=== PATIENT | male | born 1935 | race Caucasian/White ===

== ENCOUNTER 2018-01-11 02:00 | Outpatient (RCR) | payer MEDICARE, OTHER, SELFPAY ==
[2017-12-21] MEDS: Normal Saline Flush 10 ML SYR IVP (11:15)
[2017-12-21 11:52] LABS: Abs Immature Grans 0.03 k/cumm (0.0-0.09); Absolute Basophil Count 0.08 k/cumm (0.0-0.2); Absolute Eosinophil Count 0.13 k/cumm (0.0-0.7); Absolute Monocyte Count 0.67 k/cumm (0.11-0.7); Absolute Neutrophil Count 4.04 k/cumm (1.2-6.7); Basophils % 1.3; HCT 28.2 % (40.0-50.0); HGB 9.7 g/dL (13.5-17.5); Immature Grans % 0.5; Mean Corp. HGB Concentration 34.4 g/dL (32.0-36.0); Mean Corpuscular Hemoglobin 32.6 pg (27.0-33.0); Mean Corpuscular Volume 94.6 fL (80-95); Mean Platelet Volume 10.3 fL (8.0-11.0); Monocytes % 10.6; Neutrophils % 63.6; Platelet Count 167 x1000/uL (130-400); RBC 2.98 m/cumm (4.50-6.00); RBC Distribution Width 13.5 % (11.8-14.1); White Blood Cell Count 6.35 k/cumm (4.4-10.8)
[2017-12-21 12:05] LABS: ALT 50 U/L (12-78); AST 32 U/L (15-37); Albumin 3.2 g/dL (3.4-5.0); Alkaline Phosphatase 151 U/L (46-116); Anion Gap 7.4 mmol/L (3-11); BUN 21 mg/dL (7-18); Bilirubin, Total 0.4 mg/dL (0.2-1.0); CO2 21.6 mmol/L (21.0-32.0); CREATININE 1.02 mg/dL (0.70-1.30); Calcium 8.1 mg/dL (8.5-10.1); Chloride 109 mmol/L (98-107); Glucose 244 mg/dL (70-100); Potassium 5.1 mmol/L (3.5-5.1); Sodium 138 mmol/L (136-145); Total Protein 5.9 g/dL (6.4-8.2)
[2017-12-22 09:02] LABS: CEA 14.9 ng/ml
[2018-01-11] MEDS: Normal Saline Flush 10 ML SYR IVP (09:50)
[2018-01-11 10:16] LABS: Abs Immature Grans 0.02 k/cumm (0.0-0.09); HCT 26.4 % (40.0-50.0); Mean Corp. HGB Concentration 34.1 g/dL (32.0-36.0); Mean Corpuscular Hemoglobin 32.1 pg (27.0-33.0); Mean Corpuscular Volume 94.3 fL (80-95); Mean Platelet Volume 10.1 fL (8.0-11.0); Platelet Count 181 x1000/uL (130-400); RBC Distribution Width 13.8 % (11.8-14.1); White Blood Cell Count 3.13 k/cumm (4.4-10.8)
[2018-01-11 10:30] LABS: ALT 26 U/L (12-78); AST 18 U/L (15-37); Albumin 3.1 g/dL (3.4-5.0); Alkaline Phosphatase 121 U/L (46-116); Anion Gap 7.1 mmol/L (3-11); BUN 18 mg/dL (7-18); Bilirubin, Total 0.5 mg/dL (0.2-1.0); CO2 22.9 mmol/L (21.0-32.0); CREATININE 0.98 mg/dL (0.70-1.30); Chloride 112 mmol/L (98-107); Glucose 146 mg/dL (70-100); Potassium 4.4 mmol/L (3.5-5.1); Sodium 142 mmol/L (136-145); Total Protein 5.7 g/dL (6.4-8.2)
[2018-01-11 10:57] LABS: Absolute Eosinophil Count 0.34 k/cumm (0.0-0.7); Absolute Lymphocyte Count 0.97 k/cumm (1.2-3.4); Absolute Monocyte Count 0.34 k/cumm (0.11-0.7); Absolute Neutrophil Count 1.47 k/cumm (1.2-6.7); Atypical Lymphocytes % 0
[2018-01-11 10:58] LABS: Basophilic Stippling Present; Diff Comment Manual Differential; Polychromasia Present
[2018-01-12 08:57] LABS: CEA 14.1 ng/ml
== END 2018-01-28 ==
LOC: INF 02:00
PROVIDERS: PCP Neuromusculoskeletal Medicine & OMM; Visit Provider Internal Medicine Medical Oncology
DX: C18.6 Malignant neoplasm of descending colon (principal); Z45.2 Encounter for adjustment and management of vascular access device
CPT/HCPCS: 36591 ×2; 80053; 82378; 85025

== ENCOUNTER 2018-02-08 01:24 | Outpatient (RCR) | payer MEDICARE, OTHER, SELFPAY ==
[2018-02-01] MEDS: Normal Saline Flush 10 ML SYR IVP (11:45)
[2018-02-01 12:12] LABS: Abs Immature Grans 0.01 k/cumm (0.0-0.09); Absolute Basophil Count 0.02 k/cumm (0.0-0.2); Absolute Eosinophil Count 0.14 k/cumm (0.0-0.7); Absolute Lymphocyte Count 1.24 k/cumm (1.2-3.4); Absolute Monocyte Count 0.48 k/cumm (0.11-0.7); Absolute Neutrophil Count 0.75 k/cumm (1.2-6.7); Basophils % 0.8; Eosinophils % 5.3; HCT 26.1 % (40.0-50.0); HGB 8.8 g/dL (13.5-17.5); Immature Grans % 0.4; Mean Corp. HGB Concentration 33.7 g/dL (32.0-36.0); Mean Corpuscular Hemoglobin 31.9 pg (27.0-33.0); Mean Corpuscular Volume 94.6 fL (80-95); Monocytes % 18.2; Neutrophils % 28.3; RBC 2.76 m/cumm (4.50-6.00); RBC Distribution Width 13.8 % (11.8-14.1); White Blood Cell Count 2.64 k/cumm (4.4-10.8)
[2018-02-01 12:24] LABS: ALT 27 U/L (12-78); AST 19 U/L (15-37); Albumin 3.1 g/dL (3.4-5.0); Alkaline Phosphatase 133 U/L (46-116); Anion Gap 6.6 mmol/L (3-11); BUN 13 mg/dL (7-18); Bilirubin, Total 0.5 mg/dL (0.2-1.0); CO2 23.4 mmol/L (21.0-32.0); CREATININE 1.14 mg/dL (0.70-1.30); Calcium 8.4 mg/dL (8.5-10.1); Chloride 109 mmol/L (98-107); Glucose 266 mg/dL (70-100); Potassium 4.8 mmol/L (3.5-5.1); Sodium 139 mmol/L (136-145); Total Protein 5.7 g/dL (6.4-8.2)
[2018-02-01 12:27] LABS: Diff Comment Diff Reviewed; Platelet Count 169 x1000/uL (130-400)
[2018-02-01 12:28] LABS: Polychromasia Present
[2018-02-08] MEDS: Normal Saline Flush 10 ML SYR IVP (11:30)
[2018-02-08 11:40] LABS: Abs Immature Grans 0.04 k/cumm (0.0-0.09); Absolute Basophil Count 0.03 k/cumm (0.0-0.2); Absolute Eosinophil Count 0.15 k/cumm (0.0-0.7); Absolute Monocyte Count 0.49 k/cumm (0.11-0.7); Absolute Neutrophil Count 3.14 k/cumm (1.2-6.7); Basophils % 0.6; HCT 27.3 % (40.0-50.0); HGB 9.3 g/dL (13.5-17.5); Immature Grans % 0.8; Lymphocytes % 23.8; Mean Corp. HGB Concentration 34.1 g/dL (32.0-36.0); Mean Corpuscular Hemoglobin 32.4 pg (27.0-33.0); Mean Corpuscular Volume 95.1 fL (80-95); Monocytes % 9.7; Neutrophils % 62.1; Platelet Count 160 x1000/uL (130-400); RBC 2.87 m/cumm (4.50-6.00); RBC Distribution Width 13.6 % (11.8-14.1); White Blood Cell Count 5.05 k/cumm (4.4-10.8)
[2018-02-08 11:57] LABS: ALT 22 U/L (12-78); AST 13 U/L (15-37); Alkaline Phosphatase 132 U/L (46-116); Anion Gap 8.2 mmol/L (3-11); BUN 19 mg/dL (7-18); Bilirubin, Total 0.4 mg/dL (0.2-1.0); CO2 21.8 mmol/L (21.0-32.0); CREATININE 0.86 mg/dL (0.70-1.30); Calcium 8.3 mg/dL (8.5-10.1); Chloride 110 mmol/L (98-107); Glucose 382 mg/dL (70-100); Potassium 4.4 mmol/L (3.5-5.1); Sodium 140 mmol/L (136-145); Total Protein 5.8 g/dL (6.4-8.2)
== END 2018-02-27 23:59 | disposition home or self-care (01) ==
LOC: INF 01:24
PROVIDERS: PCP Neuromusculoskeletal Medicine & OMM; Visit Provider Internal Medicine Medical Oncology
DX: C18.6 Malignant neoplasm of descending colon (principal); Z45.2 Encounter for adjustment and management of vascular access device
CPT/HCPCS: 36591; 80053; 85025

== ENCOUNTER 2018-03-25 01:12 | Outpatient (RCR) | payer MEDICARE, OTHER, SELFPAY ==
[2018-03-04] MEDS: Normal Saline Flush 10 ML SYR IVP (09:55)
[2018-03-04 10:36] LABS: ALT 23 U/L (12-78); AST 13 U/L (15-37); Albumin 3.3 g/dL (3.4-5.0); Alkaline Phosphatase 148 U/L (46-116); Anion Gap 7.5 mmol/L (3-11); BUN 23 mg/dL (7-18); Bilirubin, Total 0.5 mg/dL (0.2-1.0); CO2 24.5 mmol/L (21.0-32.0); CREATININE 1.05 mg/dL (0.70-1.30); Calcium 8.6 mg/dL (8.5-10.1); Chloride 109 mmol/L (98-107); Glucose 222 mg/dL (70-100); Potassium 5.3 mmol/L (3.5-5.1); Sodium 141 mmol/L (136-145); Total Protein 6.1 g/dL (6.4-8.2)
[2018-03-04 10:37] LABS: Abs Immature Grans 0.04 k/cumm (0.0-0.09); Absolute Basophil Count 0.08 k/cumm (0.0-0.2); Absolute Lymphocyte Count 1.16 k/cumm (1.2-3.4); Absolute Monocyte Count 0.76 k/cumm (0.11-0.7); Absolute Neutrophil Count 6.32 k/cumm (1.2-6.7); Basophils % 0.9; Eosinophils % 2.3; HCT 28.8 % (40.0-50.0); HGB 9.3 g/dL (13.5-17.5); Immature Grans % 0.5; Lymphocytes % 13.6; Mean Corp. HGB Concentration 32.3 g/dL (32.0-36.0); Mean Corpuscular Hemoglobin 31.2 pg (27.0-33.0); Mean Corpuscular Volume 96.6 fL (80-95); Mean Platelet Volume 10.9 fL (8.0-11.0); Monocytes % 8.9; Neutrophils % 73.8; Platelet Count 232 x1000/uL (130-400); RBC 2.98 m/cumm (4.50-6.00); RBC Distribution Width 13.4 % (11.8-14.1); White Blood Cell Count 8.56 k/cumm (4.4-10.8)
[2018-03-07 11:07] LABS: CEA 24.4 ng/ml
[2018-03-25] MEDS: Normal Saline Flush 10 ML SYR IVP (10:25)
[2018-03-25 10:55] LABS: Abs Immature Grans 0.05 k/cumm (0.0-0.09); Absolute Basophil Count 0.05 k/cumm (0.0-0.2); Absolute Eosinophil Count 0.16 k/cumm (0.0-0.7); Absolute Lymphocyte Count 1.01 k/cumm (1.2-3.4); Absolute Monocyte Count 0.53 k/cumm (0.11-0.7); Absolute Neutrophil Count 8.02 k/cumm (1.2-6.7); Basophils % 0.5; Eosinophils % 1.6; HCT 28.7 % (40.0-50.0); HGB 9.7 g/dL (13.5-17.5); Immature Grans % 0.5; Lymphocytes % 10.3; Mean Corp. HGB Concentration 33.8 g/dL (32.0-36.0); Mean Corpuscular Hemoglobin 31.9 pg (27.0-33.0); Mean Corpuscular Volume 94.4 fL (80-95); Mean Platelet Volume 11.1 fL (8.0-11.0); Monocytes % 5.4; Neutrophils % 81.7; Platelet Count 164 x1000/uL (130-400); RBC 3.04 m/cumm (4.50-6.00); RBC Distribution Width 13.1 % (11.8-14.1); White Blood Cell Count 9.82 k/cumm (4.4-10.8)
[2018-03-25 11:07] LABS: ALT 27 U/L (12-78); AST 15 U/L (15-37); Albumin 3.1 g/dL (3.4-5.0); Alkaline Phosphatase 160 U/L (46-116); BUN 12 mg/dL (7-18); Bilirubin, Total 0.5 mg/dL (0.2-1.0); CREATININE 1.01 mg/dL (0.70-1.30); Calcium 8.4 mg/dL (8.5-10.1); Chloride 105 mmol/L (98-107); Glucose 358 mg/dL (70-100); Sodium 137 mmol/L (136-145); Total Protein 5.7 g/dL (6.4-8.2)
[2018-03-28 10:04] LABS: CEA 34.9 ng/ml
== END 2018-03-30 23:59 | disposition home or self-care (01) ==
LOC: INF 01:12
PROVIDERS: PCP Neuromusculoskeletal Medicine & OMM; Visit Provider Internal Medicine Medical Oncology
DX: C18.6 Malignant neoplasm of descending colon (principal); Z45.2 Encounter for adjustment and management of vascular access device
CPT/HCPCS: 36591; 80053; 82378; 85025

== ENCOUNTER 2018-04-29 00:51 | Outpatient (RCR) | payer MEDICARE, OTHER, SELFPAY ==
[2018-04-18] MEDS: Normal Saline Flush 10 ML SYR IVP (09:55)
[2018-04-18 10:38] LABS: Abs Immature Grans 0.03 k/cumm (0.0-0.09); Absolute Basophil Count 0.07 k/cumm (0.0-0.2); Absolute Eosinophil Count 0.22 k/cumm (0.0-0.7); Absolute Lymphocyte Count 0.87 k/cumm (1.2-3.4); Absolute Monocyte Count 0.53 k/cumm (0.11-0.7); Absolute Neutrophil Count 6.42 k/cumm (1.2-6.7); Basophils % 0.9; Eosinophils % 2.7; HCT 28.1 % (40.0-50.0); HGB 9.4 g/dL (13.5-17.5); Immature Grans % 0.4; Lymphocytes % 10.7; Mean Corp. HGB Concentration 33.5 g/dL (32.0-36.0); Mean Corpuscular Hemoglobin 31.5 pg (27.0-33.0); Mean Corpuscular Volume 94.3 fL (80-95); Mean Platelet Volume 11.5 fL (8.0-11.0); Monocytes % 6.5; Neutrophils % 78.8; Platelet Count 158 x1000/uL (130-400); RBC 2.98 m/cumm (4.50-6.00); RBC Distribution Width 13.1 % (11.8-14.1); White Blood Cell Count 8.14 k/cumm (4.4-10.8)
[2018-04-18 10:54] LABS: ALT 21 U/L (12-78); AST 14 U/L (15-37); Albumin 3.2 g/dL (3.4-5.0); Alkaline Phosphatase 143 U/L (46-116); Anion Gap 6.7 mmol/L (3-11); BUN 15 mg/dL (7-18); Bilirubin, Total 0.5 mg/dL (0.2-1.0); CO2 26.3 mmol/L (21.0-32.0); Calcium 8.5 mg/dL (8.5-10.1); Chloride 104 mmol/L (98-107); Glucose 413 mg/dL (70-100); Potassium 4.9 mmol/L (3.5-5.1); Sodium 137 mmol/L (136-145); Total Protein 5.6 g/dL (6.4-8.2)
[2018-04-19 10:34] LABS: CEA 45.3 ng/ml
== END 2018-04-29 23:59 | disposition home or self-care (01) ==
LOC: INF 00:51
PROVIDERS: Internal Medicine Medical Oncology; PCP Neuromusculoskeletal Medicine & OMM; Visit Provider Internal Medicine Hematology & Oncology
DX: C18.6 Malignant neoplasm of descending colon (principal); Z45.2 Encounter for adjustment and management of vascular access device
CPT/HCPCS: 36591; 80053; 82378; 85025

== ENCOUNTER 2018-05-27 01:32 | Outpatient (RCR) | payer MEDICARE, OTHER, SELFPAY ==
[2018-05-09] MEDS: Normal Saline Flush 10 ML SYR IVP (09:15)
[2018-05-09 09:50] LABS: Abs Immature Grans 0.05 k/cumm (0.0-0.09); Absolute Basophil Count 0.06 k/cumm (0.0-0.2); Absolute Lymphocyte Count 0.98 k/cumm (1.2-3.4); Absolute Monocyte Count 0.56 k/cumm (0.11-0.7); Absolute Neutrophil Count 7.47 k/cumm (1.2-6.7); Basophils % 0.6; Eosinophils % 4.2; HCT 28.1 % (40.0-50.0); HGB 9.5 g/dL (13.5-17.5); Immature Grans % 0.5; Lymphocytes % 10.3; Mean Corp. HGB Concentration 33.8 g/dL (32.0-36.0); Mean Corpuscular Hemoglobin 31.5 pg (27.0-33.0); Mean Platelet Volume 10.8 fL (8.0-11.0); Monocytes % 5.9; Neutrophils % 78.5; Platelet Count 169 x1000/uL (130-400); RBC 3.02 m/cumm (4.50-6.00); RBC Distribution Width 13.1 % (11.8-14.1); White Blood Cell Count 9.52 k/cumm (4.4-10.8)
[2018-05-09 10:02] LABS: ALT 24 U/L (12-78); AST 13 U/L (15-37); Albumin 3.1 g/dL (3.4-5.0); Alkaline Phosphatase 150 U/L (46-116); Anion Gap 9.2 mmol/L (3-11); BUN 17 mg/dL (7-18); Bilirubin, Total 0.4 mg/dL (0.2-1.0); CO2 24.8 mmol/L (21.0-32.0); CREATININE 1.16 mg/dL (0.70-1.30); Calcium 8.4 mg/dL (8.5-10.1); Chloride 106 mmol/L (98-107); Glucose 333 mg/dL (70-100); Potassium 4.9 mmol/L (3.5-5.1); Sodium 140 mmol/L (136-145); Total Protein 5.7 g/dL (6.4-8.2)
[2018-05-27] MEDS: Normal Saline Flush 10 ML SYR IVP (09:31)
[2018-05-27] MEDS: Heparin 500 UNITS/5 ML SYRINGE IV (09:32)
[2018-05-27 09:49] LABS: Abs Immature Grans 0.06 k/cumm (0.0-0.09); Absolute Basophil Count 0.05 k/cumm (0.0-0.2); Absolute Eosinophil Count 0.16 k/cumm (0.0-0.7); Absolute Lymphocyte Count 0.96 k/cumm (1.2-3.4); Absolute Monocyte Count 0.54 k/cumm (0.11-0.7); Absolute Neutrophil Count 8.24 k/cumm (1.2-6.7); Basophils % 0.5; Eosinophils % 1.6; HCT 28.3 % (40.0-50.0); HGB 9.7 g/dL (13.5-17.5); Immature Grans % 0.6; Lymphocytes % 9.6; Mean Corp. HGB Concentration 34.3 g/dL (32.0-36.0); Mean Corpuscular Hemoglobin 32.1 pg (27.0-33.0); Mean Corpuscular Volume 93.7 fL (80-95); Monocytes % 5.4; Neutrophils % 82.3; Platelet Count 139 x1000/uL (130-400); RBC 3.02 m/cumm (4.50-6.00); RBC Distribution Width 13.5 % (11.8-14.1); White Blood Cell Count 10.01 k/cumm (4.4-10.8)
[2018-05-27 10:01] LABS: ALT 23 U/L (12-78); AST 13 U/L (15-37); Albumin 3.1 g/dL (3.4-5.0); Alkaline Phosphatase 163 U/L (46-116); Anion Gap 8.1 mmol/L (3-11); BUN 15 mg/dL (7-18); Bilirubin, Total 0.5 mg/dL (0.2-1.0); CO2 23.9 mmol/L (21.0-32.0); CREATININE 1.06 mg/dL (0.70-1.30); Calcium 8.3 mg/dL (8.5-10.1); Chloride 103 mmol/L (98-107); Glucose 423 mg/dL (70-100); Potassium 4.7 mmol/L (3.5-5.1); Sodium 135 mmol/L (136-145)
[2018-05-30 08:50] LABS: CEA 47.5 ng/ml
== END 2018-05-30 23:59 | disposition home or self-care (01) ==
LOC: INF 01:32
PROVIDERS: PCP Neuromusculoskeletal Medicine & OMM; Visit Provider Internal Medicine Hematology & Oncology
DX: C18.6 Malignant neoplasm of descending colon (principal); Z45.2 Encounter for adjustment and management of vascular access device
CPT/HCPCS: 36591; 80053; 82378; 85025

== ENCOUNTER 2018-06-27 01:12 | Outpatient (RCR) | payer MEDICARE, OTHER, SELFPAY ==
[2018-06-13] MEDS: Normal Saline Flush 10 ML SYR IVP (07:37)
[2018-06-13 07:51] LABS: Abs Immature Grans 0.12 k/cumm (0.0-0.09); Absolute Basophil Count 0.03 k/cumm (0.0-0.2); Absolute Eosinophil Count 0.21 k/cumm (0.0-0.7); Absolute Monocyte Count 0.51 k/cumm (0.11-0.7); Absolute Neutrophil Count 6.23 k/cumm (1.2-6.7); Basophils % 0.4; Eosinophils % 2.6; HCT 28.6 % (40.0-50.0); HGB 9.5 g/dL (13.5-17.5); Immature Grans % 1.5; Lymphocytes % 12.3; Mean Corp. HGB Concentration 33.2 g/dL (32.0-36.0); Mean Corpuscular Hemoglobin 31.8 pg (27.0-33.0); Mean Corpuscular Volume 95.7 fL (80-95); Mean Platelet Volume 10.7 fL (8.0-11.0); Monocytes % 6.3; Neutrophils % 76.9; Platelet Count 124 x1000/uL (130-400); RBC 2.99 m/cumm (4.50-6.00); RBC Distribution Width 13.9 % (11.8-14.1)
[2018-06-13 08:09] LABS: ALT 22 U/L (12-78); AST 16 U/L (15-37); Albumin 2.9 g/dL (3.4-5.0); Alkaline Phosphatase 156 U/L (46-116); Anion Gap 5.9 mmol/L (3-11); BUN 14 mg/dL (7-18); Bilirubin, Total 0.4 mg/dL (0.2-1.0); CO2 25.1 mmol/L (21.0-32.0); CREATININE 1.04 mg/dL (0.70-1.30); Chloride 109 mmol/L (98-107); Glucose 260 mg/dL (70-100); Potassium 4.4 mmol/L (3.5-5.1); Sodium 140 mmol/L (136-145); Total Protein 5.8 g/dL (6.4-8.2)
[2018-06-14 11:05] LABS: CEA 34.3 ng/ml
[2018-06-27] MEDS: Normal Saline Flush 10 ML SYR IVP (09:12)
[2018-06-27 09:44] LABS: Absolute Eosinophil Count 0.07 k/cumm (0.0-0.7); Eosinophils % 0.6; HCT 29.3 % (40.0-50.0); HGB 9.7 g/dL (13.5-17.5); Mean Corp. HGB Concentration 33.1 g/dL (32.0-36.0); Mean Corpuscular Hemoglobin 31.4 pg (27.0-33.0); Mean Corpuscular Volume 94.8 fL (80-95); Mean Platelet Volume 11.1 fL (8.0-11.0); Platelet Count 161 x1000/uL (130-400); RBC 3.09 m/cumm (4.50-6.00); RBC Distribution Width 14.4 % (11.8-14.1); White Blood Cell Count 11.86 k/cumm (4.4-10.8)
[2018-06-27 09:49] LABS: ALT 20 U/L (12-78); AST 20 U/L (15-37); Alkaline Phosphatase 171 U/L (46-116); Anion Gap 8.5 mmol/L (3-11); BUN 13 mg/dL (7-18); Bilirubin, Total 0.4 mg/dL (0.2-1.0); CO2 22.5 mmol/L (21.0-32.0); Calcium 8.4 mg/dL (8.5-10.1); Chloride 111 mmol/L (98-107); Glucose 121 mg/dL (70-100); Potassium 4.5 mmol/L (3.5-5.1); Sodium 142 mmol/L (136-145); Total Protein 6.3 g/dL (6.4-8.2)
[2018-06-27 10:39] LABS: Absolute Lymphocyte Count 0.83 k/cumm (1.2-3.4); Absolute Monocyte Count 0.59 k/cumm (0.11-0.7); Absolute Neutrophil Count 9.96 k/cumm (1.2-6.7)
[2018-06-27 10:40] LABS: Diff Comment Manual Differential; Other Cells 1; RBC Morphology Normal
[2018-06-28 10:28] LABS: CEA 24.7 ng/ml
== END 2018-06-30 23:59 | disposition home or self-care (01) ==
LOC: INF 01:12
PROVIDERS: PCP Neuromusculoskeletal Medicine & OMM; Visit Provider Internal Medicine Hematology & Oncology
DX: C18.9 Malignant neoplasm of colon, unspecified (principal); Z45.2 Encounter for adjustment and management of vascular access device
CPT/HCPCS: 36591; 80053; 82378; 85025

== ENCOUNTER 2018-07-11 02:34 | Outpatient (RCR) | payer MEDICARE, OTHER, SELFPAY ==
[2018-07-11] MEDS: Normal Saline Flush 10 ML SYR IVP (07:01)
[2018-07-11 07:42] LABS: Abs Immature Grans 0.12 k/cumm (0.0-0.09); Absolute Basophil Count 0.06 k/cumm (0.0-0.2); Absolute Eosinophil Count 0.09 k/cumm (0.0-0.7); Absolute Lymphocyte Count 1.33 k/cumm (1.2-3.4); Absolute Monocyte Count 0.93 k/cumm (0.11-0.7); Absolute Neutrophil Count 10.08 k/cumm (1.2-6.7); Basophils % 0.5; Eosinophils % 0.7; HCT 28.3 % (40.0-50.0); HGB 9.3 g/dL (13.5-17.5); Lymphocytes % 10.5; Mean Corp. HGB Concentration 32.9 g/dL (32.0-36.0); Mean Corpuscular Hemoglobin 31.3 pg (27.0-33.0); Mean Corpuscular Volume 95.3 fL (80-95); Mean Platelet Volume 11.5 fL (8.0-11.0); Monocytes % 7.4; Neutrophils % 79.9; Platelet Count 134 x1000/uL (130-400); RBC 2.97 m/cumm (4.50-6.00); RBC Distribution Width 14.6 % (11.8-14.1); White Blood Cell Count 12.62 k/cumm (4.4-10.8)
[2018-07-11 07:54] LABS: ALT 19 U/L (12-78); AST 15 U/L (15-37); Albumin 3.1 g/dL (3.4-5.0); Alkaline Phosphatase 169 U/L (46-116); Anion Gap 7.5 mmol/L (3-11); BUN 16 mg/dL (7-18); Bilirubin, Total 0.4 mg/dL (0.2-1.0); CO2 24.5 mmol/L (21.0-32.0); CREATININE 0.95 mg/dL (0.70-1.30); Calcium 8.5 mg/dL (8.5-10.1); Chloride 111 mmol/L (98-107); Glucose 91 mg/dL (70-100); Potassium 4.2 mmol/L (3.5-5.1); Sodium 143 mmol/L (136-145); Total Protein 6.4 g/dL (6.4-8.2)
[2018-07-12 11:39] LABS: CEA 16.8 ng/ml
== END 2018-07-28 23:59 | disposition home or self-care (01) ==
LOC: INF 02:34
PROVIDERS: PCP Neuromusculoskeletal Medicine & OMM; Visit Provider Internal Medicine Hematology & Oncology
DX: C18.9 Malignant neoplasm of colon, unspecified (principal); Z45.2 Encounter for adjustment and management of vascular access device
CPT/HCPCS: 36591; 80053; 82378; 85025

== ENCOUNTER 2018-08-12 02:06 | Outpatient (RCR) | payer MEDICARE, OTHER, SELFPAY ==
[2018-08-01] MEDS: Normal Saline Flush 10 ML SYR IVP (10:18)
[2018-08-01 11:06] LABS: ALT 22 U/L (12-78); AST 22 U/L (15-37); Albumin 3.2 g/dL (3.4-5.0); Alkaline Phosphatase 145 U/L (46-116); Anion Gap 8.4 mmol/L (3-11); BUN 22 mg/dL (7-18); Bilirubin, Total 0.5 mg/dL (0.2-1.0); CO2 24.6 mmol/L (21.0-32.0); CREATININE 0.95 mg/dL (0.70-1.30); Calcium 8.4 mg/dL (8.5-10.1); Chloride 110 mmol/L (98-107); Glucose 109 mg/dL (70-100); Potassium 4.3 mmol/L (3.5-5.1); Sodium 143 mmol/L (136-145); Total Protein 6.4 g/dL (6.4-8.2)
[2018-08-01 11:10] LABS: Abs Immature Grans 0.03 k/cumm (0.0-0.09); Absolute Basophil Count 0.05 k/cumm (0.0-0.2); Absolute Eosinophil Count 0.17 k/cumm (0.0-0.7); Absolute Lymphocyte Count 1.09 k/cumm (1.2-3.4); Absolute Monocyte Count 0.52 k/cumm (0.11-0.7); Absolute Neutrophil Count 6.36 k/cumm (1.2-6.7); Basophils % 0.6; Eosinophils % 2.1; HCT 30.3 % (40.0-50.0); HGB 9.8 g/dL (13.5-17.5); Immature Grans % 0.4; Lymphocytes % 13.3; Mean Corp. HGB Concentration 32.3 g/dL (32.0-36.0); Mean Corpuscular Hemoglobin 30.6 pg (27.0-33.0); Mean Corpuscular Volume 94.7 fL (80-95); Mean Platelet Volume 11.4 fL (8.0-11.0); Monocytes % 6.3; Neutrophils % 77.3; Platelet Count 176 x1000/uL (130-400); RBC Distribution Width 15.2 % (11.8-14.1); White Blood Cell Count 8.22 k/cumm (4.4-10.8)
[2018-08-02 09:11] LABS: CEA 20.8 ng/ml
[2018-08-12] MEDS: Normal Saline Flush 10 ML SYR IVP (10:23)
[2018-08-12] MEDS: Heparin 500 UNITS/5 ML SYRINGE IV (10:23)
[2018-08-12 10:47] LABS: Absolute Basophil Count 0.06 k/cumm (0.0-0.2); Absolute Lymphocyte Count 1.11 k/cumm (1.2-3.4); Absolute Monocyte Count 1.17 k/cumm (0.11-0.7); Absolute Neutrophil Count 13.48 k/cumm (1.2-6.7); Basophils % 0.4; Eosinophils % 0.9; HCT 27.4 % (40.0-50.0); HGB 9.3 g/dL (13.5-17.5); Immature Grans % 0.6; Lymphocytes % 6.9; Mean Corp. HGB Concentration 33.9 g/dL (32.0-36.0); Mean Corpuscular Hemoglobin 32.1 pg (27.0-33.0); Mean Corpuscular Volume 94.5 fL (80-95); Mean Platelet Volume 10.3 fL (8.0-11.0); Monocytes % 7.3; Neutrophils % 83.9; Platelet Count 125 x1000/uL (130-400); RBC Distribution Width 14.9 % (11.8-14.1); White Blood Cell Count 16.07 k/cumm (4.4-10.8)
[2018-08-12 10:49] LABS: Absolute Eosinophil Count 0.14 k/cumm (0.0-0.7)
[2018-08-12 11:04] LABS: ALT 28 U/L (12-78); AST 28 U/L (15-37); Albumin 3.2 g/dL (3.4-5.0); Alkaline Phosphatase 191 U/L (46-116); Anion Gap 8.8 mmol/L (3-11); BUN 11 mg/dL (7-18); Bilirubin, Total 0.4 mg/dL (0.2-1.0); CO2 23.2 mmol/L (21.0-32.0); CREATININE 0.99 mg/dL (0.70-1.30); Calcium 8.1 mg/dL (8.5-10.1); Chloride 110 mmol/L (98-107); Glucose 116 mg/dL (70-100); Potassium 4.1 mmol/L (3.5-5.1); Sodium 142 mmol/L (136-145); Total Protein 6.2 g/dL (6.4-8.2)
[2018-08-15 11:05] LABS: CEA 17.9 ng/ml
== END 2018-08-28 23:59 | disposition home or self-care (01) ==
LOC: INF 02:06
PROVIDERS: PCP Neuromusculoskeletal Medicine & OMM; Visit Provider Internal Medicine Hematology & Oncology
DX: C18.9 Malignant neoplasm of colon, unspecified (principal); Z45.2 Encounter for adjustment and management of vascular access device
CPT/HCPCS: 36591; 80053; 82378; 85025

== ENCOUNTER 2018-09-26 01:46 | Outpatient (RCR) | payer MEDICARE, OTHER, SELFPAY ==
[2018-08-29] MEDS: Normal Saline Flush 10 ML SYR IVP (09:35)
[2018-08-29 09:55] LABS: Abs Immature Grans 0.22 k/cumm (0.0-0.09); HCT 30.1 % (40.0-50.0); Mean Corp. HGB Concentration 33.2 g/dL (32.0-36.0); Mean Corpuscular Hemoglobin 31.4 pg (27.0-33.0); Mean Corpuscular Volume 94.7 fL (80-95); RBC 3.18 m/cumm (4.50-6.00); RBC Distribution Width 14.8 % (11.8-14.1); White Blood Cell Count 10.43 k/cumm (4.4-10.8)
[2018-08-29 10:07] LABS: ALT 27 U/L (12-78); AST 21 U/L (15-37); Albumin 3.2 g/dL (3.4-5.0); Alkaline Phosphatase 200 U/L (46-116); BUN 16 mg/dL (7-18); Bilirubin, Total 0.4 mg/dL (0.2-1.0); CREATININE 1.05 mg/dL (0.70-1.30); Calcium 8.2 mg/dL (8.5-10.1); Chloride 108 mmol/L (98-107); Glucose 103 mg/dL (70-100); Potassium 4.3 mmol/L (3.5-5.1); Sodium 140 mmol/L (136-145); Total Protein 6.5 g/dL (6.4-8.2)
[2018-08-29 10:09] LABS: Absolute Basophil Count 0.21 k/cumm (0.0-0.2); Absolute Lymphocyte Count 1.25 k/cumm (1.2-3.4); Absolute Monocyte Count 0.63 k/cumm (0.11-0.7); Absolute Neutrophil Count 7.93 k/cumm (1.2-6.7); Diff Comment Manual Differential; Platelet Count 151 x1000/uL (130-400); RBC Morphology Normal
[2018-08-30 15:27] LABS: CEA 16.5 ng/ml
[2018-09-12] MEDS: Normal Saline Flush 10 ML SYR IVP (09:35)
[2018-09-12 10:06] LABS: Abs Immature Grans 0.06 k/cumm (0.0-0.09); Absolute Basophil Count 0.04 k/cumm (0.0-0.2); Absolute Eosinophil Count 0.07 k/cumm (0.0-0.7); Absolute Lymphocyte Count 0.96 k/cumm (1.2-3.4); Absolute Monocyte Count 0.62 k/cumm (0.11-0.7); Absolute Neutrophil Count 7.02 k/cumm (1.2-6.7); Basophils % 0.5; Eosinophils % 0.8; HCT 29.2 % (40.0-50.0); HGB 9.7 g/dL (13.5-17.5); Immature Grans % 0.7; Lymphocytes % 10.9; Mean Corp. HGB Concentration 33.2 g/dL (32.0-36.0); Mean Corpuscular Hemoglobin 31.6 pg (27.0-33.0); Mean Corpuscular Volume 95.1 fL (80-95); Mean Platelet Volume 11.1 fL (8.0-11.0); Monocytes % 7.1; Platelet Count 150 x1000/uL (130-400); RBC 3.07 m/cumm (4.50-6.00); RBC Distribution Width 15.1 % (11.8-14.1); White Blood Cell Count 8.77 k/cumm (4.4-10.8)
[2018-09-12 10:20] LABS: ALT 21 U/L (12-78); AST 18 U/L (15-37); Albumin 3.3 g/dL (3.4-5.0); Alkaline Phosphatase 182 U/L (46-116); Anion Gap 8.6 mmol/L (3-11); BUN 17 mg/dL (7-18); Bilirubin, Total 0.4 mg/dL (0.2-1.0); CO2 23.4 mmol/L (21.0-32.0); CREATININE 1.02 mg/dL (0.70-1.30); Calcium 8.3 mg/dL (8.5-10.1); Chloride 111 mmol/L (98-107); Glucose 142 mg/dL (70-100); Potassium 4.3 mmol/L (3.5-5.1); Sodium 143 mmol/L (136-145); Total Protein 6.6 g/dL (6.4-8.2)
[2018-09-13 09:26] LABS: CEA 20.3 ng/ml
[2018-09-26] MEDS: Normal Saline Flush 10 ML SYR IVP (10:06)
[2018-09-26 10:19] LABS: Abs Immature Grans 0.08 k/cumm (0.0-0.09); Absolute Basophil Count 0.03 k/cumm (0.0-0.2); Absolute Eosinophil Count 0.12 k/cumm (0.0-0.7); Absolute Lymphocyte Count 0.99 k/cumm (1.2-3.4); Absolute Monocyte Count 0.82 k/cumm (0.11-0.7); Absolute Neutrophil Count 9.48 k/cumm (1.2-6.7); Basophils % 0.3; HCT 28.4 % (40.0-50.0); HGB 9.6 g/dL (13.5-17.5); Immature Grans % 0.7; Lymphocytes % 8.6; Mean Corp. HGB Concentration 33.8 g/dL (32.0-36.0); Mean Corpuscular Hemoglobin 31.8 pg (27.0-33.0); Mean Platelet Volume 11.2 fL (8.0-11.0); Monocytes % 7.1; Neutrophils % 82.3; Platelet Count 132 x1000/uL (130-400); RBC 3.02 m/cumm (4.50-6.00); RBC Distribution Width 15.1 % (11.8-14.1); White Blood Cell Count 11.52 k/cumm (4.4-10.8)
[2018-09-26 10:32] LABS: ALT 19 U/L (12-78); AST 15 U/L (15-37); Albumin 3.2 g/dL (3.4-5.0); Alkaline Phosphatase 196 U/L (46-116); Anion Gap 8.7 mmol/L (3-11); BUN 15 mg/dL (7-18); Bilirubin, Total 0.4 mg/dL (0.2-1.0); CO2 25.3 mmol/L (21.0-32.0); CREATININE 1.01 mg/dL (0.70-1.30); Calcium 8.5 mg/dL (8.5-10.1); Chloride 108 mmol/L (98-107); Glucose 101 mg/dL (70-100); Potassium 4.3 mmol/L (3.5-5.1); Sodium 142 mmol/L (136-145); Total Protein 6.6 g/dL (6.4-8.2)
[2018-09-27 09:19] LABS: CEA 17.1 ng/ml
== END 2018-09-27 23:59 | disposition home or self-care (01) ==
LOC: INF 01:46
PROVIDERS: PCP Neuromusculoskeletal Medicine & OMM; Visit Provider Internal Medicine Hematology & Oncology
DX: C18.9 Malignant neoplasm of colon, unspecified (principal); Z45.2 Encounter for adjustment and management of vascular access device
CPT/HCPCS: 36591; 80053; 82378; 85025

== ENCOUNTER 2018-10-25 01:28 | Outpatient (RCR) | payer MEDICARE, OTHER, SELFPAY ==
[2018-10-07] MEDS: Normal Saline Flush 10 ML SYR IVP (13:46)
[2018-10-07] MEDS: Heparin 500 UNITS/5 ML SYRINGE IV (13:46)
[2018-10-07 14:05] LABS: Abs Immature Grans 0.07 k/cumm (0.0-0.09); Absolute Basophil Count 0.04 k/cumm (0.0-0.2); Absolute Lymphocyte Count 1.15 k/cumm (1.2-3.4); Basophils % 0.3; Eosinophils % 0.9; HCT 29.2 % (40.0-50.0); HGB 9.6 g/dL (13.5-17.5); Immature Grans % 0.5; Lymphocytes % 7.8; Mean Corp. HGB Concentration 32.9 g/dL (32.0-36.0); Mean Corpuscular Hemoglobin 30.9 pg (27.0-33.0); Mean Corpuscular Volume 93.9 fL (80-95); Mean Platelet Volume 10.7 fL (8.0-11.0); Monocytes % 7.3; Neutrophils % 83.2; Platelet Count 163 x1000/uL (130-400); RBC 3.11 m/cumm (4.50-6.00); RBC Distribution Width 15.1 % (11.8-14.1); White Blood Cell Count 14.74 k/cumm (4.4-10.8)
[2018-10-07 14:16] LABS: Absolute Eosinophil Count 0.13 k/cumm (0.0-0.7); Absolute Monocyte Count 1.08 k/cumm (0.11-0.7); Absolute Neutrophil Count 12.26 k/cumm (1.2-6.7)
[2018-10-07 14:24] LABS: ALT 26 U/L (12-78); AST 19 U/L (15-37); Albumin 3.2 g/dL (3.4-5.0); Alkaline Phosphatase 225 U/L (46-116); Anion Gap 8.5 mmol/L (3-11); BUN 16 mg/dL (7-18); Bilirubin, Total 0.4 mg/dL (0.2-1.0); CO2 24.5 mmol/L (21.0-32.0); CREATININE 1.05 mg/dL (0.70-1.30); Calcium 8.5 mg/dL (8.5-10.1); Chloride 106 mmol/L (98-107); Glucose 249 mg/dL (70-100); Potassium 4.1 mmol/L (3.5-5.1); Sodium 139 mmol/L (136-145); Total Protein 6.9 g/dL (6.4-8.2)
[2018-10-10 10:38] LABS: CEA 22.2 ng/ml
[2018-10-25] MEDS: Normal Saline Flush 10 ML SYR IVP (09:34)
[2018-10-25 09:43] LABS: Absolute Basophil Count 0.06 k/cumm (0.0-0.2); Absolute Eosinophil Count 0.19 k/cumm (0.0-0.7); Absolute Lymphocyte Count 1.04 k/cumm (1.2-3.4); Absolute Monocyte Count 0.81 k/cumm (0.11-0.7); Absolute Neutrophil Count 12.34 k/cumm (1.2-6.7); Basophils % 0.4; Eosinophils % 1.3; HCT 30.3 % (40.0-50.0); HGB 10.1 g/dL (13.5-17.5); Immature Grans % 1.4; Lymphocytes % 7.1; Mean Corp. HGB Concentration 33.3 g/dL (32.0-36.0); Mean Corpuscular Hemoglobin 31.5 pg (27.0-33.0); Mean Corpuscular Volume 94.4 fL (80-95); Mean Platelet Volume 10.7 fL (8.0-11.0); Monocytes % 5.5; Neutrophils % 84.3; Platelet Count 145 x1000/uL (130-400); RBC 3.21 m/cumm (4.50-6.00); White Blood Cell Count 14.64 k/cumm (4.4-10.8)
[2018-10-25 09:53] LABS: ALT 32 U/L (12-78); AST 25 U/L (15-37); Albumin 3.4 g/dL (3.4-5.0); Alkaline Phosphatase 204 U/L (46-116); Anion Gap 8.5 mmol/L (3-11); BUN 18 mg/dL (7-18); Bilirubin, Total 0.4 mg/dL (0.2-1.0); CO2 23.5 mmol/L (21.0-32.0); Calcium 8.6 mg/dL (8.5-10.1); Chloride 108 mmol/L (98-107); Glucose 139 mg/dL (70-100); Potassium 4.6 mmol/L (3.5-5.1); Sodium 140 mmol/L (136-145); Total Protein 6.8 g/dL (6.4-8.2)
[2018-10-26 11:51] LABS: CEA 19.3 ng/ml
== END 2018-10-28 23:59 | disposition home or self-care (01) ==
LOC: INF 01:28
PROVIDERS: PCP Neuromusculoskeletal Medicine & OMM; Visit Provider Internal Medicine Hematology & Oncology
DX: C18.9 Malignant neoplasm of colon, unspecified (principal); Z45.2 Encounter for adjustment and management of vascular access device
CPT/HCPCS: 36591; 80053; 82378; 85025

== ENCOUNTER 2018-11-22 09:17 | Outpatient (RCR) | payer MEDICARE, OTHER, SELFPAY ==
[2018-11-08] MEDS: Normal Saline Flush 10 ML SYR IVP (08:38)
[2018-11-08 08:55] LABS: Abs Immature Grans 0.13 k/cumm (0.0-0.09); Absolute Basophil Count 0.08 k/cumm (0.0-0.2); Absolute Lymphocyte Count 0.99 k/cumm (1.2-3.4); Absolute Monocyte Count 0.95 k/cumm (0.11-0.7); Absolute Neutrophil Count 10.11 k/cumm (1.2-6.7); Basophils % 0.6; Eosinophils % 2.2; HCT 28.9 % (40.0-50.0); HGB 9.7 g/dL (13.5-17.5); Lymphocytes % 7.9; Mean Corp. HGB Concentration 33.6 g/dL (32.0-36.0); Mean Corpuscular Hemoglobin 32.3 pg (27.0-33.0); Mean Corpuscular Volume 96.3 fL (80-95); Mean Platelet Volume 11.1 fL (8.0-11.0); Monocytes % 7.6; Neutrophils % 80.7; Platelet Count 140 x1000/uL (130-400); RBC Distribution Width 14.9 % (11.8-14.1); White Blood Cell Count 12.53 k/cumm (4.4-10.8)
[2018-11-08 08:58] LABS: Absolute Eosinophil Count 0.28 k/cumm (0.0-0.7)
[2018-11-08 09:04] LABS: ALT 25 U/L (12-78); AST 22 U/L (15-37); Albumin 3.2 g/dL (3.4-5.0); Alkaline Phosphatase 212 U/L (46-116); Anion Gap 9.5 mmol/L (3-11); BUN 15 mg/dL (7-18); Bilirubin, Total 0.4 mg/dL (0.2-1.0); CO2 23.5 mmol/L (21.0-32.0); CREATININE 1.05 mg/dL (0.70-1.30); Calcium 8.5 mg/dL (8.5-10.1); Chloride 109 mmol/L (98-107); Glucose 188 mg/dL (70-100); Potassium 4.7 mmol/L (3.5-5.1); Sodium 142 mmol/L (136-145); Total Protein 6.8 g/dL (6.4-8.2)
[2018-11-08 09:18] LABS: Basophilic Stippling Present; Hypochromasia 1+; Macrocytosis 1+; Polychromasia Present
[2018-11-09 10:10] LABS: CEA 17.8 ng/ml
[2018-11-22] MEDS: Normal Saline Flush 10 ML SYR IVP (09:02)
[2018-11-22 09:06] LABS: Abs Immature Grans 0.06 k/cumm (0.0-0.09); Absolute Basophil Count 0.08 k/cumm (0.0-0.2); Absolute Eosinophil Count 0.26 k/cumm (0.0-0.7); Absolute Lymphocyte Count 0.76 k/cumm (1.2-3.4); Absolute Monocyte Count 0.71 k/cumm (0.11-0.7); Absolute Neutrophil Count 9.11 k/cumm (1.2-6.7); Basophils % 0.7; Eosinophils % 2.4; HCT 28.7 % (40.0-50.0); HGB 9.6 g/dL (13.5-17.5); Immature Grans % 0.5; Lymphocytes % 6.9; Mean Corp. HGB Concentration 33.4 g/dL (32.0-36.0); Mean Corpuscular Hemoglobin 31.8 pg (27.0-33.0); Mean Platelet Volume 10.8 fL (8.0-11.0); Monocytes % 6.5; Platelet Count 152 x1000/uL (130-400); RBC 3.02 m/cumm (4.50-6.00); RBC Distribution Width 14.8 % (11.8-14.1); White Blood Cell Count 10.97 k/cumm (4.4-10.8)
[2018-11-22 09:25] LABS: ALT 24 U/L (12-78); AST 18 U/L (15-37); Albumin 3.1 g/dL (3.4-5.0); Alkaline Phosphatase 239 U/L (46-116); Anion Gap 9.9 mmol/L (3-11); BUN 17 mg/dL (7-18); Bilirubin, Total 0.4 mg/dL (0.2-1.0); CO2 23.1 mmol/L (21.0-32.0); CREATININE 0.96 mg/dL (0.70-1.30); Calcium 8.6 mg/dL (8.5-10.1); Chloride 107 mmol/L (98-107); Glucose 293 mg/dL (70-100); Potassium 4.5 mmol/L (3.5-5.1); Sodium 140 mmol/L (136-145); Total Protein 6.8 g/dL (6.4-8.2)
[2018-11-23 09:28] LABS: CEA 23.8 ng/ml
== END 2018-11-27 23:59 | disposition home or self-care (01) ==
LOC: INF 09:17
PROVIDERS: PCP Neuromusculoskeletal Medicine & OMM; Visit Provider Internal Medicine Hematology & Oncology
DX: C18.9 Malignant neoplasm of colon, unspecified (principal); Z45.2 Encounter for adjustment and management of vascular access device
CPT/HCPCS: 36591; 80053; 82378; 85025

== ENCOUNTER 2018-12-23 02:13 | Outpatient (RCR) | payer MEDICARE, OTHER, SELFPAY ==
[2018-12-06 07:46] LABS: Abs Immature Grans 0.11 k/cumm (0.0-0.09); Absolute Basophil Count 0.05 k/cumm (0.0-0.2); Absolute Eosinophil Count 0.17 k/cumm (0.0-0.7); Absolute Lymphocyte Count 0.76 k/cumm (1.2-3.4); Absolute Monocyte Count 0.99 k/cumm (0.11-0.7); Basophils % 0.4; Eosinophils % 1.4; HCT 28.4 % (40.0-50.0); HGB 9.4 g/dL (13.5-17.5); Immature Grans % 0.9; Lymphocytes % 6.2; Mean Corp. HGB Concentration 33.1 g/dL (32.0-36.0); Mean Corpuscular Hemoglobin 31.4 pg (27.0-33.0); Mean Platelet Volume 11.1 fL (8.0-11.0); Monocytes % 8.1; Platelet Count 155 x1000/uL (130-400); RBC 2.99 m/cumm (4.50-6.00); RBC Distribution Width 14.5 % (11.8-14.1)
[2018-12-06 07:48] LABS: Absolute Neutrophil Count 10.13 k/cumm (1.2-6.7)
[2018-12-06 07:58] LABS: ALT 15 U/L (12-78); AST 11 U/L (15-37); Alkaline Phosphatase 224 U/L (46-116); Anion Gap 8.6 mmol/L (3-11); BUN 15 mg/dL (7-18); Bilirubin, Total 0.5 mg/dL (0.2-1.0); CO2 23.4 mmol/L (21.0-32.0); CREATININE 1.01 mg/dL (0.70-1.30); Calcium 8.3 mg/dL (8.5-10.1); Chloride 107 mmol/L (98-107); Glucose 260 mg/dL (70-100); Potassium 4.5 mmol/L (3.5-5.1); Sodium 139 mmol/L (136-145); Total Protein 6.8 g/dL (6.4-8.2)
[2018-12-06] MEDS: Normal Saline Flush 10 ML SYR IVP (09:00)
[2018-12-07 08:50] LABS: CEA 27.9 ng/ml
[2018-12-23 09:23] LABS: Absolute Basophil Count 0.07 k/cumm (0.0-0.2); Basophils % 0.6; HCT 29.1 % (40.0-50.0); HGB 9.6 g/dL (13.5-17.5); Mean Corpuscular Hemoglobin 31.4 pg (27.0-33.0); Mean Corpuscular Volume 95.1 fL (80-95); Mean Platelet Volume 10.4 fL (8.0-11.0); Platelet Count 176 x1000/uL (130-400); RBC 3.06 m/cumm (4.50-6.00); RBC Distribution Width 13.9 % (11.8-14.1); White Blood Cell Count 11.92 k/cumm (4.4-10.8)
[2018-12-23] MEDS: Heparin 500 UNITS/5 ML SYRINGE IV (09:40)
[2018-12-23] MEDS: Normal Saline Flush 10 ML SYR IVP (09:40)
[2018-12-23 09:41] LABS: ALT 27 U/L (12-78); AST 22 U/L (15-37); Alkaline Phosphatase 210 U/L (46-116); BUN 16 mg/dL (7-18); Bilirubin, Total 0.4 mg/dL (0.2-1.0); CREATININE 0.99 mg/dL (0.70-1.30); Calcium 8.2 mg/dL (8.5-10.1); Chloride 107 mmol/L (98-107); Glucose 224 mg/dL (70-100); Potassium 4.6 mmol/L (3.5-5.1); Sodium 140 mmol/L (136-145); Total Protein 6.7 g/dL (6.4-8.2)
[2018-12-23 09:52] LABS: Absolute Lymphocyte Count 0.72 k/cumm (1.2-3.4); Absolute Neutrophil Count 9.77 k/cumm (1.2-6.7); Diff Comment Manual Differential
[2018-12-23 09:53] LABS: Absolute Eosinophil Count 0.24 k/cumm (0.0-0.7); Absolute Monocyte Count 0.48 k/cumm (0.11-0.7); Anisocytosis 1+; Polychromasia Present
[2018-12-26 10:12] LABS: CEA 26.4 ng/ml
== END 2018-12-28 23:59 | disposition home or self-care (01) ==
LOC: INF 02:13
PROVIDERS: PCP Neuromusculoskeletal Medicine & OMM; Visit Provider Internal Medicine Hematology & Oncology
DX: C18.9 Malignant neoplasm of colon, unspecified (principal); Z45.2 Encounter for adjustment and management of vascular access device
CPT/HCPCS: 36591; 80053; 82378; 85025

== ENCOUNTER 2018-12-29 15:37 | Emergency (ER) | payer MEDICARE, OTHER, SELFPAY ==
[2018-12-29] VITALS (31 sets, daily range): BP systolic 142–155; BP diastolic 53–70; PULSE 63–79; RESP 11–23; TEMP 36.9; O2SAT 96–100
--- NOTE | 2018-12-29 16:20 | DI.CT_ITS ---
SYMPTOM/DIAGNOSIS: RT SCAPULAR PAIN, RECENT RUE DVT, COLON CA WITH METS CT ANGIOGRAPHY CHEST: CT angiography was performed with multi slice acquisition and multi planar and 3D reconstruction. CT angiography of the chest was performed according to protocol. No priors for comparison. There is no evidence of a pulmonary embolus. The thoracic aorta is intact. No evidence of a dissection or aneurysm. Heart size is within normal limits. No significant pericardial effusion is seen. Coronary artery calcifications are seen. No significant thoracic adenopathy or pneumothorax is identified. There is a tiny right pleural effusion present. There are scattered ill defined nodular opacities in the lungs. The largest is along the left major fissure and measures 1.8 cm in diameter (series 6, image 320). No focal consolidating infiltrates are seen. The tracheobronchial tree is unremarkable. There is mild cortical thickening in the medial aspect of the inferior tip of the right scapula. In the setting of colon cancer metastatic disease cannot be excluded. There is subcortical sclerosis seen along the articular surface of the right humerus, suspicious for avascular necrosis. Degenerative changes are seen in the shoulders bilaterally, right greater than left. Degenerative changes are seen in the spine. There is a 2 cm intramuscular lipoma seen adjacent to the right infraspinatus muscle. IMPRESSION: 1. No evidence of a pulmonary embolus, thoracic aortic dissection or aneurysm. 2. Nodular opacities within the lungs concerning for metastatic disease in this patient with colon cancer. 3. Cortical irregularity and thickening of the inferior tip of the right scapula. Metastatic disease cannot be excluded. Bone scan should be considered for further evaluation. 4. 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
--- NOTE | 2018-12-29 16:25 | W.ED.GENAD ---
Discharge Plan Disposition Patient Disposition: HOME Discharge Details Chief Complaint: Vascular Clinical Impression: Upper back pain on right side, Lipoma, Leukocytosis Primary Care Provider: Abdirashid Daley ED Provider: Sebas Coy Home Meds and New Rx's Prescriptions: New lidocaine 5 % adhesive patch,medicated 1 patch TP DAILY Qty: 15 RF: 1 Continued potassium chloride 10 MEQ capsule, extended release 20 meq PO DAILY RF: 0 carvedilol 12.5 MG tablet 12.5 mg PO BID RF: 0 glyburide 5 MG tablet 10 mg PO BID RF: 0 simvastatin 40 MG tablet 40 mg PO HS RF: 0 Levemir U-100 Insulin 100 UNIT/ML solution 10 unit SQ PRN PRN (Reason: if bs > 200) RF: 0 losartan 50 MG tablet 50 mg PO QAM RF: 0 Discharge Instructions Instructions: Back Pain (ED) Additional Instructions: Please follow-up with your oncologist. Call tomorrow to arrange timely follow-up. Please contact your primary care physician to arrange follow-up. Please take acetaminophen (tylenol) - 650mg every 6 hours by mouth as needed for pain. Return to the ER for any worsening or new concerning symptoms including fever, rash, chest pain or shortness of breath. Referrals: Abdirashid Daley [Primary Care Provider] - Myles Curran MD [MD CONSULTING PHYSICIAN] - Medical Decision Making 16:30 --83-year-old male with history of colon cancer with metastasis, status post partial bowel resection and on chemotherapy actively, recently diagnosed with right upper extremity DVT associated with his port, now on Eliquis, expressing increased pain in posterior right shoulder and upper back. Pain is worse with certain movements of his back and shoulder and he does have tenderness right upper thoracic paraspinal and scapula that reproduces pain. Screening ECG was reviewed and interpreted by me: Sinus rhythm 69 bpm, first-degree AV block with [place] interval of 230, normal axis, no STEMI, nondiagnostic. Pain seems musculoskeletal in etiology. Consider metastasis. Plan to obtain CT of the chest to assess for pulmonary embolism and bony metastasis. --Patient was reassessed and noted some improvement in his pain after Tylenol and lidocaine patch. 18:40 -- CT of chest interpreted byr radiology: IMPRESSION: 1. No pulmonary emboli identified. However, there are multiple patchy nodular opacities throughout the bilateral lung ramos, which are concerning for metastases in the setting of metastatic colon cancer. 2. Mild contour irregularity of the inferior aspect of the scapula which may be chronic. Correlate with point tenderness for any superimposed acuity. 3. 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 Called [facility] to request oncology consult. 18:48 -- Leukocytosis noted. Patient notes recently received injection for white blood count. Spoke with Dr. Monterroso at [facility] [place] and reviewed ED presentation and course including diagnostics. He notes leukocytosis secondary to neulasta and recomemends outpatient followup. All diagnostic results were reviewed with the patient. I explained that if pain persist, he may need surgical intervention to address lipoma. I encouraged him to call Dr. Curran to arrange timely outpatient follow-up. Disposition decision was made weighing the risks and benefits of hospitalization versus outpatient treatment, the risk for further decompensation, and the patient's wishes. The patient was stable and requested discharge. Prior to discharge, my usual and customary return precautions were reviewed with him - this included follow-up instructions and reason to return to the emergency department if condition worsens, does not improve as expected, or other new concerns arise. HPI General Mode of arrival: ambulatory. Date/Time Provider Initiated Documentation: 12/29/18 15:38. Limitations to Documentation: no limitations. Information obtained by: patient. HPI Narrative: 83-year-old male with history of colon cancer with mets, status post bowel resection, currently on chemotherapy, hypertension, diabetes, atrial fibrillation, recently diagnosed DVT right upper extremity, here with chief complaint of shoulder pain. Patient notes pain in his right shoulder for the past few weeks. Patient had an ultrasound about a week ago that revealed DVT of his right upper extremity. He was started on Eliquis which she is been taking as prescribed. Pain has persisted and is now worse. Pain worse over the past couple days. Pain is sharp and localized to his posterior shoulder/upper back. Pain is worse with movement and improved with rest. Pain also worse on palpation of his posterior shoulder and upper back. He has no associated shortness of breath or chest pain. Related Data Home Medications Medication Instructions Recorded Confirmed Levemir U-100 Insulin 10 unit SQ PRN PRN 03/08/17 12/29/18 carvedilol 12.5 mg PO BID 03/08/17 12/29/18 glyburide 10 mg PO BID 03/08/17 12/29/18 simvastatin 40 mg PO HS 03/08/17 12/29/18 losartan 50 mg PO QAM 03/09/17 12/29/18 potassium chloride 20 meq PO DAILY 03/25/17 12/29/18 lidocaine 1 patch TP DAILY #15 each 12/29/18 Previous Rx's Medication Instructions Recorded lidocaine 1 patch TP DAILY #15 each 12/29/18 Allergies Allergy/AdvReac Type Severity Reaction Status Date / Time bee venom protein (honey bee) AdvReac Unverified 12/29/18 15:52 General Stated Complaint: Vascular DEBO: 2 Review of Systems Review of Systems All systems reviewed & are unremarkable except as noted in HPI and below Cardiovascular Reports as per HPI Musculoskeletal Reports as per HPI PFSH Social History Smoking/Tobacco Use Status: Former Tobacco Use Alcohol Intake: never Drug use: Never Substance use type: does not use Do you feel safe at home: Yes Do you feel safe in your relationship?: Yes Exam Const General: cooperative and no acute distress HENMT Head: normocephalic Mouth: moist mucous membranes Eyes Conjunctivae: normal conjunctivae Sclera: normal sclerae Neck Neck: trachea midline and supple Resp Auscultation: clear to auscultation bilaterally, no rales, no rhonchi and no wheezes Cardio Jugular venous pressure: no JVD Rate: regular rate and not tachycardic Rhythm: regular rhythm GI Palpation: soft, not firm, no guarding, no masses, not rigid and nontender Back/Spine/Pelvis Back: No erythema, No warmth, No ecchymosis and back tenderness (rt upper thoracic paraspinal) Skin General skin exam: no rashes or lesions noted Neuro General: alert, awake and tone normal Extrem General: edema (B/L LEs (patient notes chronic), RUE (pt notes few weeks)) Psych Appearance: grossly normal Mental Status: mental status grossly normal Course Vital Signs Temperature 36.9 C 12/29/18 15:40 Pulse 74 12/29/18 15:40 Respiratory Rate 18 12/29/18 15:40 Blood Pressure 146/62 H 12/29/18 15:40 Pulse Oximetry 100 12/29/18 15:40 Temperature 36.9 C 12/29/18 15:40 Temperature Source Skin 12/29/18 15:40 Pulse 74 12/29/18 15:40 Respiratory Rate 18 12/29/18 15:40 Respiratory Effort 12/29/18 15:55 Blood Pressure 146/62 H 12/29/18 15:40 Pulse Oximetry 100 12/29/18 15:40 Oxygen Delivery Method Room Air 12/29/18 15:40 Oxygen Flow Rate 0 12/29/18 15:40 Pain Level 8 12/29/18 15:40
[2018-12-29 16:34] LABS: Abs Immature Grans 0.67 k/cumm (0.0-0.09); HCT 30.4 % (40.0-50.0); HGB 10.3 g/dL (13.5-17.5); Mean Corp. HGB Concentration 33.9 g/dL (32.0-36.0); Mean Corpuscular Hemoglobin 32.1 pg (27.0-33.0); Mean Corpuscular Volume 94.7 fL (80-95); Mean Platelet Volume 11.3 fL (8.0-11.0); Platelet Count 127 x1000/uL (130-400); RBC 3.21 m/cumm (4.50-6.00); RBC Distribution Width 14.3 % (11.8-14.1)
[2018-12-29 16:49] LABS: White Blood Cell Count 68.75 k/cumm (4.4-10.8)
[2018-12-29 16:50] LABS: Absolute Neutrophil Count 65.31 k/cumm (1.2-6.7)
[2018-12-29 16:51] LABS: Absolute Lymphocyte Count 2.75 k/cumm (1.2-3.4); Absolute Monocyte Count 0.69 k/cumm (0.11-0.7); Atypical Lymphocytes % 0; Diff Comment Manual Differential; RBC Morphology Normal
[2018-12-29 16:59] LABS: ALT 21 U/L (12-78); AST 11 U/L (15-37); Albumin 3.1 g/dL (3.4-5.0); Alkaline Phosphatase 180 U/L (46-116); Anion Gap 8.5 mmol/L (3-11); BUN 18 mg/dL (7-18); Bilirubin, Total 0.6 mg/dL (0.2-1.0); CO2 23.5 mmol/L (21.0-32.0); CREATININE 0.96 mg/dL (0.70-1.30); Calcium 8.9 mg/dL (8.5-10.1); Chloride 107 mmol/L (98-107); Glucose 211 mg/dL (70-100); Magnesium 1.8 mg/dL (1.8-2.4); Sodium 139 mmol/L (136-145); Total Protein 7.1 g/dL (6.4-8.2)
[2018-12-29 17:02] LABS: Troponin I < 0.05 ng/mL (0.00-0.06)
[2018-12-29] MEDS: Acetaminophen 325 MG TAB 650 MG PO (17:03)
[2018-12-29] MEDS: Lidocaine 5% Patch 1 PATCH TP (17:04)
[2018-12-29] MEDS: Omnipaque 350 MG/ML 100 ML BTL IJ (17:48)
[2018-12-29] MEDS: Normal Saline Flush 10 ML SYR IVP (17:48)
--- NOTE | 2018-12-29 18:25 | DI.VRAD_ITS ---
EXAM: CT Angiography Chest With Contrast EXAM DATE/TIME: 12/29/2018 4:22 PM CLINICAL HISTORY: 83 years old, male; Other: RT scapular pain, recent rue dvt, colon CA w/mets TECHNIQUE: Imaging protocol: Axial computed tomographic angiography images of the chest with intravenous contrast using CT angiography protocol. Coronal and sagittal reformatted images were created and reviewed. 3D rendering: MIP reconstructed images were created and reviewed. Radiation optimization: All CT scans at this facility use at least one of these dose optimization techniques: automated exposure control; mA and/or kV adjustment per patient size (includes targeted exams where dose is matched to clinical indication); or iterative reconstruction. Contrast material: OMNIPAQUE 350;Contrast volume: 100 ml;Contrast route: IV; COMPARISON: No relevant prior studies available. FINDINGS: Pulmonary arteries: Normal. No pulmonary emboli. Aorta: Unremarkable. No aortic aneurysm. No aortic dissection. Lungs: There are patchy nodular opacities in the bilateral lung ramos. The most prominent lesion is seen along the left oblique fissure measuring up to 1.8 cm (image 54, series 4). Pleural space: There is a no pleural effusion or pneumothorax. Heart: Unremarkable. No cardiomegaly. No pericardial effusion. Lymph nodes: Unremarkable. No enlarged lymph nodes. Bones/joints: There is a small region of contour irregularity at the inferior aspect of the right scapula. This finding may be chronic, however correlate with point tenderness for acute injury to this region. Glenohumeral joint degenerative disease is noted, right greater than left. Soft tissues: There is a small 1.9 cm intramuscular lipoma noted in the region of the right infraspinatus muscle, adjacent to the scapula (image 110, series 2). IMPRESSION: 1. No pulmonary emboli identified. However, there are multiple patchy nodular opacities throughout the bilateral lung ramos, which are concerning for metastases in the setting of metastatic colon cancer. 2. Mild contour irregularity of the inferior aspect of the scapula which may be chronic. Correlate with point tenderness for any superimposed acuity. 3. 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 Dictated and Authenticated by: Rosina Wesley MD. Ordering:EPI Mullen MD
[2018-12-29] MEDS: Heparin 500 UNITS/5 ML SYRINGE (19:24)
== END 2018-12-29 19:39 | disposition home or self-care (01) ==
PROVIDERS: Emergency Provider Student in an Organized Health Care Education/Training Program; PCP Neuromusculoskeletal Medicine & OMM
DX: M54.6 Pain in thoracic spine (principal); I44.0 Atrioventricular block, first degree; D17.1 Benign lipomatous neoplasm of skin and subcutaneous tissue of trunk; D72.829 Elevated white blood cell count, unspecified; Z79.01 Long term (current) use of anticoagulants
CPT/HCPCS: 36415; 71275; 80053; 93005; 99285; 83735; 84484; 85025; 93010; J3490

== ENCOUNTER 2019-01-23 01:26 | Outpatient (RCR) | payer MEDICARE, OTHER, SELFPAY ==
[2019-01-09 11:11] LABS: Abs Immature Grans 0.06 k/cumm (0.0-0.09); Absolute Basophil Count 0.05 k/cumm (0.0-0.2); Absolute Eosinophil Count 0.12 k/cumm (0.0-0.7); Absolute Lymphocyte Count 1.17 k/cumm (1.2-3.4); Basophils % 0.4; HGB 9.4 g/dL (13.5-17.5); Immature Grans % 0.5; Lymphocytes % 9.9; Mean Corp. HGB Concentration 33.6 g/dL (32.0-36.0); Mean Corpuscular Hemoglobin 31.9 pg (27.0-33.0); Mean Corpuscular Volume 94.9 fL (80-95); Mean Platelet Volume 10.8 fL (8.0-11.0); Monocytes % 6.3; Neutrophils % 81.9; Platelet Count 123 x1000/uL (130-400); RBC 2.95 m/cumm (4.50-6.00); RBC Distribution Width 14.2 % (11.8-14.1)
[2019-01-09 11:13] LABS: Absolute Monocyte Count 0.75 k/cumm (0.11-0.7)
[2019-01-09] MEDS: Normal Saline Flush 10 ML SYR IVP (11:20)
[2019-01-09 11:22] LABS: White Blood Cell Count 11.84 k/cumm (4.4-10.8)
[2019-01-09 11:28] LABS: ALT 33 U/L (12-78); AST 18 U/L (15-37); Albumin 3.1 g/dL (3.4-5.0); Alkaline Phosphatase 217 U/L (46-116); Anion Gap 9.6 mmol/L (3-11); BUN 20 mg/dL (7-18); Bilirubin, Total 0.3 mg/dL (0.2-1.0); CO2 23.4 mmol/L (21.0-32.0); CREATININE 1.15 mg/dL (0.70-1.30); Calcium 8.2 mg/dL (8.5-10.1); Chloride 109 mmol/L (98-107); Glucose 188 mg/dL (70-100); Potassium 4.8 mmol/L (3.5-5.1); Sodium 142 mmol/L (136-145)
[2019-01-10 09:38] LABS: CEA 29.5 ng/ml
[2019-01-23] MEDS: Normal Saline Flush 10 ML SYR IVP (09:15)
[2019-01-23 09:26] LABS: Abs Immature Grans 0.33 k/cumm (0.0-0.09); HGB 9.4 g/dL (13.5-17.5); Mean Corp. HGB Concentration 33.6 g/dL (32.0-36.0); Mean Corpuscular Hemoglobin 31.8 pg (27.0-33.0); Mean Corpuscular Volume 94.6 fL (80-95); Mean Platelet Volume 10.8 fL (8.0-11.0); Platelet Count 143 x1000/uL (130-400); RBC 2.96 m/cumm (4.50-6.00); RBC Distribution Width 14.9 % (11.8-14.1); White Blood Cell Count 12.28 k/cumm (4.4-10.8)
[2019-01-23 09:38] LABS: Absolute Lymphocyte Count 1.23 k/cumm (1.2-3.4); Absolute Neutrophil Count 9.58 k/cumm (1.2-6.7)
[2019-01-23 09:39] LABS: ALT 33 U/L (16-63); AST 25 U/L (15-37); Absolute Eosinophil Count 0.25 k/cumm (0.0-0.7); Absolute Monocyte Count 0.98 k/cumm (0.11-0.7); Albumin 3.1 g/dL (3.4-5.0); Alkaline Phosphatase 202 U/L (46-116); Anion Gap 9.2 mmol/L (3-11); Anisocytosis 1+; BUN 15 mg/dL (7-18); Bilirubin, Total 0.3 mg/dL (0.2-1.0); CO2 23.8 mmol/L (21.0-32.0); CREATININE 0.97 mg/dL (0.70-1.30); Calcium 8.3 mg/dL (8.5-10.1); Chloride 109 mmol/L (98-107); Diff Comment Manual Differential; Glucose 199 mg/dL (70-100); Polychromasia Present; Potassium 4.2 mmol/L (3.5-5.1); Sodium 142 mmol/L (136-145); Total Protein 6.9 g/dL (6.4-8.2)
[2019-01-24 10:25] LABS: CEA 45.1 ng/ml
== END 2019-01-28 23:59 | disposition home or self-care (01) ==
LOC: INF 01:26
PROVIDERS: PCP Neuromusculoskeletal Medicine & OMM; Visit Provider Internal Medicine Hematology & Oncology
DX: C18.9 Malignant neoplasm of colon, unspecified (principal); Z45.2 Encounter for adjustment and management of vascular access device
CPT/HCPCS: 36591; 80053; 82378; 85025

== ENCOUNTER 2019-02-20 00:44 | Outpatient (RCR) | payer MEDICARE, OTHER, SELFPAY ==
[2019-02-06] MEDS: Normal Saline Flush 10 ML SYR IVP (10:50)
[2019-02-06 11:25] LABS: Abs Immature Grans 0.12 k/cumm (0.0-0.09); Absolute Basophil Count 0.04 k/cumm (0.0-0.2); Absolute Lymphocyte Count 1.06 k/cumm (1.2-3.4); Absolute Monocyte Count 0.64 k/cumm (0.11-0.7); Basophils % 0.3; Eosinophils % 0.2; HCT 27.9 % (40.0-50.0); HGB 9.4 g/dL (13.5-17.5); Lymphocytes % 8.6; Mean Corp. HGB Concentration 33.7 g/dL (32.0-36.0); Mean Corpuscular Hemoglobin 32.1 pg (27.0-33.0); Mean Corpuscular Volume 95.2 fL (80-95); Mean Platelet Volume 10.8 fL (8.0-11.0); Monocytes % 5.2; Neutrophils % 84.7; Platelet Count 192 x1000/uL (130-400); RBC 2.93 m/cumm (4.50-6.00); RBC Distribution Width 14.2 % (11.8-14.1); White Blood Cell Count 12.31 k/cumm (4.4-10.8)
[2019-02-06 11:29] LABS: Absolute Eosinophil Count 0.02 k/cumm (0.0-0.7); Absolute Neutrophil Count 10.43 k/cumm (1.2-6.7)
[2019-02-06 11:49] LABS: ALT 25 U/L (16-63); AST 19 U/L (15-37); Alkaline Phosphatase 231 U/L (46-116); Anion Gap 7.6 mmol/L (3-11); BUN 11 mg/dL (7-18); Bilirubin, Total 0.3 mg/dL (0.2-1.0); CO2 25.4 mmol/L (21.0-32.0); CREATININE 1.09 mg/dL (0.70-1.30); Calcium 8.3 mg/dL (8.5-10.1); Chloride 105 mmol/L (98-107); Glucose 331 mg/dL (70-100); Potassium 4.3 mmol/L (3.5-5.1); Sodium 138 mmol/L (136-145)
[2019-02-07 10:07] LABS: CEA 42.7 ng/ml
[2019-02-20] MEDS: Normal Saline Flush 10 ML SYR IVP (10:39)
[2019-02-20 10:47] LABS: HCT 28.6 % (40.0-50.0); HGB 9.5 g/dL (13.5-17.5); Mean Corp. HGB Concentration 33.2 g/dL (32.0-36.0); Mean Corpuscular Hemoglobin 31.6 pg (27.0-33.0); Mean Platelet Volume 10.3 fL (8.0-11.0); Platelet Count 152 x1000/uL (130-400); RBC 3.01 m/cumm (4.50-6.00); RBC Distribution Width 14.9 % (11.8-14.1)
[2019-02-20 11:02] LABS: ALT 32 U/L (16-63); AST 25 U/L (15-37); Albumin 3.2 g/dL (3.4-5.0); Alkaline Phosphatase 199 U/L (46-116); Anion Gap 7.5 mmol/L (3-11); BUN 18 mg/dL (7-18); Bilirubin, Total 0.4 mg/dL (0.2-1.0); CO2 24.5 mmol/L (21.0-32.0); CREATININE 1.03 mg/dL (0.70-1.30); Calcium 8.6 mg/dL (8.5-10.1); Chloride 110 mmol/L (98-107); Glucose 147 mg/dL (70-100); Potassium 4.3 mmol/L (3.5-5.1); Sodium 142 mmol/L (136-145); Total Protein 6.9 g/dL (6.4-8.2)
[2019-02-20 11:14] LABS: Absolute Basophil Count 0.12 k/cumm (0.0-0.2); Absolute Lymphocyte Count 1.51 k/cumm (1.2-3.4); Absolute Monocyte Count 0.93 k/cumm (0.11-0.7); Absolute Neutrophil Count 8.93 k/cumm (1.2-6.7); Diff Comment Manual Differential; RBC Morphology Normal
[2019-02-21 10:15] LABS: CEA 37.8 ng/ml
== END 2019-02-27 23:59 | disposition home or self-care (01) ==
LOC: INF 00:44
PROVIDERS: PCP Neuromusculoskeletal Medicine & OMM; Visit Provider Internal Medicine Hematology & Oncology
DX: C18.9 Malignant neoplasm of colon, unspecified (principal); Z45.2 Encounter for adjustment and management of vascular access device
CPT/HCPCS: 36591; 80053; 82378; 85025

== ENCOUNTER 2019-03-20 01:52 | Outpatient (RCR) | payer MEDICARE, OTHER, SELFPAY ==
[2019-03-06 08:39] LABS: Abs Immature Grans 0.08 k/cumm (0.0-0.09); Absolute Eosinophil Count 0.09 k/cumm (0.0-0.7); Absolute Lymphocyte Count 1.13 k/cumm (1.2-3.4); Absolute Neutrophil Count 13.34 k/cumm (1.2-6.7); Basophils % 0.3; Eosinophils % 0.6; HCT 28.3 % (40.0-50.0); HGB 9.6 g/dL (13.5-17.5); Immature Grans % 0.5; Lymphocytes % 7.2; Mean Corp. HGB Concentration 33.9 g/dL (32.0-36.0); Mean Corpuscular Hemoglobin 32.3 pg (27.0-33.0); Mean Corpuscular Volume 95.3 fL (80-95); Mean Platelet Volume 10.7 fL (8.0-11.0); Monocytes % 6.4; Platelet Count 150 x1000/uL (130-400); RBC 2.97 m/cumm (4.50-6.00); RBC Distribution Width 15.3 % (11.8-14.1); White Blood Cell Count 15.69 k/cumm (4.4-10.8)
[2019-03-06] MEDS: Normal Saline Flush 10 ML SYR IVP (08:44)
[2019-03-06 08:46] LABS: Absolute Basophil Count 0.05 k/cumm (0.0-0.2)
[2019-03-06 08:53] LABS: ALT 21 U/L (16-63); AST 18 U/L (15-37); Albumin 3.3 g/dL (3.4-5.0); Alkaline Phosphatase 190 U/L (46-116); Anion Gap 4.8 mmol/L (3-11); BUN 22 mg/dL (7-18); Bilirubin, Total 0.5 mg/dL (0.2-1.0); CO2 28.2 mmol/L (21.0-32.0); CREATININE 1.09 mg/dL (0.70-1.30); Calcium 8.5 mg/dL (8.5-10.1); Chloride 107 mmol/L (98-107); Glucose 231 mg/dL (70-100); Sodium 140 mmol/L (136-145); Total Protein 6.8 g/dL (6.4-8.2)
[2019-03-07 10:47] LABS: CEA 39.2 ng/ml
[2019-03-20] MEDS: Normal Saline Flush 10 ML SYR IVP (08:25)
[2019-03-20 08:31] LABS: Abs Immature Grans 0.08 k/cumm (0.0-0.09); Absolute Basophil Count 0.03 k/cumm (0.0-0.2); Absolute Eosinophil Count 0.07 k/cumm (0.0-0.7); Absolute Lymphocyte Count 0.87 k/cumm (1.2-3.4); Absolute Monocyte Count 0.62 k/cumm (0.11-0.7); Absolute Neutrophil Count 11.49 k/cumm (1.2-6.7); Basophils % 0.2; Eosinophils % 0.5; HCT 28.7 % (40.0-50.0); HGB 9.6 g/dL (13.5-17.5); Immature Grans % 0.6; Lymphocytes % 6.6; Mean Corp. HGB Concentration 33.4 g/dL (32.0-36.0); Mean Corpuscular Hemoglobin 31.9 pg (27.0-33.0); Mean Corpuscular Volume 95.3 fL (80-95); Mean Platelet Volume 10.7 fL (8.0-11.0); Monocytes % 4.7; Neutrophils % 87.4; Platelet Count 183 x1000/uL (130-400); RBC 3.01 m/cumm (4.50-6.00); RBC Distribution Width 14.9 % (11.8-14.1); White Blood Cell Count 13.15 k/cumm (4.4-10.8)
[2019-03-20 08:36] LABS: ALT 19 U/L (16-63); AST 15 U/L (15-37); Alkaline Phosphatase 217 U/L (46-116); Anion Gap 6.9 mmol/L (3-11); BUN 20 mg/dL (7-18); Bilirubin, Total 0.3 mg/dL (0.2-1.0); CO2 27.1 mmol/L (21.0-32.0); CREATININE 1.08 mg/dL (0.70-1.30); Calcium 8.5 mg/dL (8.5-10.1); Chloride 106 mmol/L (98-107); Glucose 325 mg/dL (70-100); Potassium 4.2 mmol/L (3.5-5.1); Sodium 140 mmol/L (136-145); Total Protein 6.7 g/dL (6.4-8.2)
[2019-03-21 13:41] LABS: CEA 61.2 ng/ml
== END 2019-03-30 23:59 | disposition home or self-care (01) ==
LOC: INF 01:52
PROVIDERS: PCP Neuromusculoskeletal Medicine & OMM; Visit Provider Internal Medicine Hematology & Oncology
DX: C18.9 Malignant neoplasm of colon, unspecified (principal); Z45.2 Encounter for adjustment and management of vascular access device
CPT/HCPCS: 36591; 80053; 82378; 85025

== ENCOUNTER 2019-04-14 02:21 | Outpatient (RCR) | payer MEDICARE, OTHER, SELFPAY ==
[2019-04-14] MEDS: Normal Saline Flush 10 ML SYR IVP (13:57)
[2019-04-14] MEDS: Heparin 500 UNITS/5 ML SYRINGE IV (13:57)
[2019-04-14 14:03] LABS: Abs Immature Grans 0.02 k/cumm (0.0-0.09); Absolute Basophil Count 0.05 k/cumm (0.0-0.2); Absolute Lymphocyte Count 1.15 k/cumm (1.2-3.4); Absolute Monocyte Count 0.51 k/cumm (0.11-0.7); Basophils % 0.5; HCT 29.2 % (40.0-50.0); HGB 9.5 g/dL (13.5-17.5); Immature Grans % 0.2; Lymphocytes % 11.1; Mean Corp. HGB Concentration 32.5 g/dL (32.0-36.0); Mean Corpuscular Hemoglobin 31.4 pg (27.0-33.0); Mean Corpuscular Volume 96.4 fL (80-95); Mean Platelet Volume 10.6 fL (8.0-11.0); Monocytes % 4.9; Neutrophils % 82.3; Platelet Count 166 x1000/uL (130-400); RBC 3.03 m/cumm (4.50-6.00); RBC Distribution Width 14.2 % (11.8-14.1); White Blood Cell Count 10.33 k/cumm (4.4-10.8)
[2019-04-14 14:17] LABS: ALT 20 U/L (16-63); AST 17 U/L (15-37); Albumin 3.1 g/dL (3.4-5.0); Alkaline Phosphatase 128 U/L (46-116); Anion Gap 4.9 mmol/L (3-11); BUN 19 mg/dL (7-18); Bilirubin, Total 0.4 mg/dL (0.2-1.0); CO2 27.1 mmol/L (21.0-32.0); CREATININE 1.07 mg/dL (0.70-1.30); Calcium 8.3 mg/dL (8.5-10.1); Chloride 107 mmol/L (98-107); Glucose 226 mg/dL (70-100); Potassium 4.6 mmol/L (3.5-5.1); Sodium 139 mmol/L (136-145); Total Protein 6.5 g/dL (6.4-8.2)
[2019-04-18 16:12] LABS: CEA 67.9 ng/mL (See Note)
== END 2019-04-29 23:59 | disposition home or self-care (01) ==
LOC: INF 02:21
PROVIDERS: PCP Neuromusculoskeletal Medicine & OMM; Visit Provider Internal Medicine Hematology & Oncology
DX: C18.9 Malignant neoplasm of colon, unspecified (principal); Z45.2 Encounter for adjustment and management of vascular access device
CPT/HCPCS: 36591; 80053; 82378; 85025

== ENCOUNTER 2019-05-26 04:48 | Outpatient (RCR) | payer MEDICARE, OTHER, SELFPAY ==
[2019-05-05] MEDS: Normal Saline Flush 10 ML SYR IVP (10:44)
[2019-05-05 11:03] LABS: Abs Immature Grans 0.01 k/cumm (0.0-0.09); Absolute Basophil Count 0.05 k/cumm (0.0-0.2); Absolute Eosinophil Count 0.12 k/cumm (0.0-0.7); Absolute Lymphocyte Count 0.96 k/cumm (1.2-3.4); Absolute Monocyte Count 0.43 k/cumm (0.11-0.7); Absolute Neutrophil Count 4.35 k/cumm (1.2-6.7); Basophils % 0.8; HCT 31.5 % (40.0-50.0); HGB 10.5 g/dL (13.5-17.5); Immature Grans % 0.2; Lymphocytes % 16.2; Mean Corp. HGB Concentration 33.3 g/dL (32.0-36.0); Mean Corpuscular Hemoglobin 31.3 pg (27.0-33.0); Mean Platelet Volume 10.3 fL (8.0-11.0); Monocytes % 7.3; Neutrophils % 73.5; Platelet Count 162 x1000/uL (130-400); RBC 3.35 m/cumm (4.50-6.00); RBC Distribution Width 12.5 % (11.8-14.1); White Blood Cell Count 5.92 k/cumm (4.4-10.8)
[2019-05-05 11:13] LABS: ALT 15 U/L (16-63); AST 16 U/L (15-37); Albumin 3.3 g/dL (3.4-5.0); Alkaline Phosphatase 140 U/L (46-116); Anion Gap 8.6 mmol/L (3-11); BUN 17 mg/dL (7-18); Bilirubin, Total 0.4 mg/dL (0.2-1.0); CO2 27.4 mmol/L (21.0-32.0); CREATININE 0.87 mg/dL (0.70-1.30); Calcium 8.7 mg/dL (8.5-10.1); Chloride 108 mmol/L (98-107); Glucose 90 mg/dL (74-106); Magnesium 1.9 mg/dL (1.8-2.4); Sodium 144 mmol/L (136-145); Total Protein 6.9 g/dL (6.4-8.2)
[2019-05-08 11:14] LABS: CEA 77.5 ng/mL (See Note)
[2019-05-19] MEDS: Normal Saline Flush 10 ML SYR IVP ×2 (10:35→17:35)
[2019-05-19 10:58] LABS: Abs Immature Grans 0.01 k/cumm (0.0-0.09); Absolute Basophil Count 0.03 k/cumm (0.0-0.2); Absolute Eosinophil Count 0.06 k/cumm (0.0-0.7); Absolute Lymphocyte Count 0.79 k/cumm (1.2-3.4); Absolute Monocyte Count 0.34 k/cumm (0.11-0.7); Absolute Neutrophil Count 5.04 k/cumm (1.2-6.7); Basophils % 0.5; HCT 24.5 % (40.0-50.0); HGB 8.2 g/dL (13.5-17.5); Immature Grans % 0.2; Lymphocytes % 12.6; Mean Corp. HGB Concentration 33.5 g/dL (32.0-36.0); Mean Corpuscular Hemoglobin 31.2 pg (27.0-33.0); Mean Corpuscular Volume 93.2 fL (80-95); Mean Platelet Volume 9.8 fL (8.0-11.0); Monocytes % 5.4; Neutrophils % 80.3; Platelet Count 207 x1000/uL (130-400); RBC 2.63 m/cumm (4.50-6.00); RBC Distribution Width 12.7 % (11.8-14.1); White Blood Cell Count 6.27 k/cumm (4.4-10.8)
[2019-05-19 11:07] LABS: ALT 20 U/L (16-63); AST 15 U/L (15-37); Albumin 2.9 g/dL (3.4-5.0); Alkaline Phosphatase 133 U/L (46-116); Anion Gap 8.2 mmol/L (3-11); BUN 22 mg/dL (7-18); Bilirubin, Total 0.5 mg/dL (0.2-1.0); CO2 27.8 mmol/L (21.0-32.0); CREATININE 0.89 mg/dL (0.70-1.30); Calcium 8.5 mg/dL (8.5-10.1); Chloride 105 mmol/L (98-107); Glucose 267 mg/dL (74-106); Potassium 4.5 mmol/L (3.5-5.1); Sodium 141 mmol/L (136-145); Total Protein 6.2 g/dL (6.4-8.2)
[2019-05-19 11:41] LABS: Anisocytosis 1+; Diff Comment RBC Morph Reviewed; Hypochromasia 1+
[2019-05-19 13:33] LABS: Magnesium 1.9 mg/dL (1.8-2.4)
[2019-05-19] MEDS: Acetaminophen 325 MG TAB 650 MG PO (14:11)
[2019-05-19 14:28] VITALS: BP 126/48; PULSE 58; RESP 18; TEMP 36.5; O2SAT 100
[2019-05-19 14:54] VITALS: BP 126/48; PULSE 58; RESP 18; TEMP 36.5; O2SAT 100
[2019-05-19 15:09] VITALS: BP 121/47; PULSE 58; RESP 18; TEMP 36.4; O2SAT 100
[2019-05-19 15:39] VITALS: BP 124/47; PULSE 56; RESP 16; TEMP 36.4; O2SAT 100
[2019-05-19 16:39] VITALS: BP 139/56; PULSE 56; RESP 18; TEMP 36.4; O2SAT 100
[2019-05-19] MEDS: Heparin 500 UNITS/5 ML SYRINGE IV (17:33)
[2019-05-26 10:32] LABS: Abs Immature Grans 0.01 k/cumm (0.0-0.09); Absolute Basophil Count 0.05 k/cumm (0.0-0.2); Absolute Eosinophil Count 0.13 k/cumm (0.0-0.7); Absolute Lymphocyte Count 0.66 k/cumm (1.2-3.4); Absolute Monocyte Count 0.35 k/cumm (0.11-0.7); Absolute Neutrophil Count 4.67 k/cumm (1.2-6.7); Basophils % 0.9; Eosinophils % 2.2; HCT 27.4 % (40.0-50.0); HGB 9.2 g/dL (13.5-17.5); Immature Grans % 0.2; Lymphocytes % 11.2; Mean Corp. HGB Concentration 33.6 g/dL (32.0-36.0); Mean Corpuscular Hemoglobin 31.2 pg (27.0-33.0); Mean Corpuscular Volume 92.9 fL (80-95); Mean Platelet Volume 9.8 fL (8.0-11.0); Neutrophils % 79.5; Platelet Count 206 x1000/uL (130-400); RBC 2.95 m/cumm (4.50-6.00); RBC Distribution Width 12.9 % (11.8-14.1); White Blood Cell Count 5.87 k/cumm (4.4-10.8)
[2019-05-26 10:56] LABS: ALT 16 U/L (16-63); AST 17 U/L (15-37); Albumin 2.8 g/dL (3.4-5.0); Alkaline Phosphatase 140 U/L (46-116); Anion Gap 9.6 mmol/L (3-11); BUN 26 mg/dL (7-18); Bilirubin, Total 0.4 mg/dL (0.2-1.0); CO2 23.4 mmol/L (21.0-32.0); CREATININE 0.94 mg/dL (0.70-1.30); Calcium 8.4 mg/dL (8.5-10.1); Chloride 110 mmol/L (98-107); Glucose 287 mg/dL (74-106); Potassium 4.8 mmol/L (3.5-5.1); Sodium 143 mmol/L (136-145); Total Protein 6.4 g/dL (6.4-8.2)
[2019-05-26] MEDS: Normal Saline Flush 10 ML SYR IVP (11:31)
== END 2019-05-30 23:59 | disposition home or self-care (01) ==
LOC: INF 04:48
PROVIDERS: PCP Neuromusculoskeletal Medicine & OMM; Visit Provider Internal Medicine Hematology & Oncology
DX: C18.9 Malignant neoplasm of colon, unspecified (principal); C78.00 Secondary malignant neoplasm of unspecified lung; Z45.2 Encounter for adjustment and management of vascular access device
CPT/HCPCS: 36415; 36430; 36591; 80053; 86850; 86900; 86901; 86920; 96523; 82378; 83735; 85025; P9016

== ENCOUNTER 2019-06-30 03:52 | Outpatient (RCR) | payer MEDICARE, OTHER, SELFPAY ==
[2019-06-02] MEDS: Normal Saline Flush 10 ML SYR IVP (10:50)
[2019-06-02 10:54] LABS: Abs Immature Grans 0.02 k/cumm (0.0-0.09); Absolute Basophil Count 0.04 k/cumm (0.0-0.2); Absolute Eosinophil Count 0.03 k/cumm (0.0-0.7); Absolute Lymphocyte Count 1.72 k/cumm (1.2-3.4); Absolute Monocyte Count 0.25 k/cumm (0.11-0.7); Absolute Neutrophil Count 5.47 k/cumm (1.2-6.7); Basophils % 0.5; Eosinophils % 0.4; HCT 28.8 % (40.0-50.0); HGB 10.1 g/dL (13.5-17.5); Immature Grans % 0.3 %; Lymphocytes % 22.8; Mean Corp. HGB Concentration 35.1 g/dL (32.0-36.0); Mean Corpuscular Hemoglobin 31.2 pg (27.0-33.0); Mean Corpuscular Volume 88.9 fL (80-95); Mean Platelet Volume 9.9 fL (8.0-11.0); Monocytes % 3.3; Neutrophils % 72.7; Platelet Count 196 x1000/uL (130-400); RBC 3.24 m/cumm (4.50-6.00); RBC Distribution Width 12.8 % (11.8-14.1); White Blood Cell Count 7.53 k/cumm (4.4-10.8)
[2019-06-02 11:06] LABS: ALT 101 U/L (16-63); AST 97 U/L (15-37); Albumin 2.5 g/dL (3.4-5.0); Alkaline Phosphatase 292 U/L (46-116); Anion Gap 10.5 mmol/L (3-11); BUN 57 mg/dL (7-18); Bilirubin, Total 0.4 mg/dL (0.2-1.0); CO2 18.5 mmol/L (21.0-32.0); CREATININE 1.44 mg/dL (0.70-1.30); Calcium 7.7 mg/dL (8.5-10.1); Chloride 111 mmol/L (98-107); Estimated GFR 46.97 (mL/min/1.73m2); Glucose 161 mg/dL (74-106); Potassium 5.2 mmol/L (3.5-5.1); Sodium 140 mmol/L (136-145); Total Protein 5.7 g/dL (6.4-8.2)
[2019-06-30] MEDS: Normal Saline Flush 10 ML SYR IVP (08:50)
[2019-06-30 09:15] LABS: Abs Immature Grans 0.01 k/cumm (0.0-0.09); Absolute Basophil Count 0.04 k/cumm (0.0-0.2); Absolute Eosinophil Count 0.12 k/cumm (0.0-0.7); Absolute Monocyte Count 0.74 k/cumm (0.11-0.7); Absolute Neutrophil Count 3.89 k/cumm (1.2-6.7); Basophils % 0.8; Eosinophils % 2.3; HCT 27.7 % (40.0-50.0); HGB 9.1 g/dL (13.5-17.5); Immature Grans % 0.2 %; Lymphocytes % 9.4; Mean Corp. HGB Concentration 32.9 g/dL (32.0-36.0); Mean Corpuscular Hemoglobin 30.1 pg (27.0-33.0); Mean Corpuscular Volume 91.7 fL (80-95); Mean Platelet Volume 9.7 fL (8.0-11.0); Neutrophils % 73.3; Platelet Count 269 x1000/uL (130-400); RBC 3.02 m/cumm (4.50-6.00); RBC Distribution Width 14.4 % (11.8-14.1)
[2019-06-30 09:42] LABS: ALT 25 U/L (16-63); AST 18 U/L (15-37); Albumin 2.8 g/dL (3.4-5.0); Alkaline Phosphatase 148 U/L (46-116); Anion Gap 10.3 mmol/L (3-11); BUN 17 mg/dL (7-18); Bilirubin, Total 0.2 mg/dL (0.2-1.0); CO2 20.7 mmol/L (21.0-32.0); CREATININE 1.09 mg/dL (0.70-1.30); Calcium 7.8 mg/dL (8.5-10.1); Chloride 114 mmol/L (98-107); Glucose 48 mg/dL (74-106); Magnesium 0.9 mg/dL (1.8-2.4); Potassium 4.5 mmol/L (3.5-5.1); Sodium 145 mmol/L (136-145); Total Protein 6.2 g/dL (6.4-8.2)
== END 2019-06-30 23:59 | disposition home or self-care (01) ==
LOC: INF 03:52
PROVIDERS: PCP Neuromusculoskeletal Medicine & OMM; Visit Provider Internal Medicine Hematology & Oncology
DX: C18.9 Malignant neoplasm of colon, unspecified (principal); C78.7 Secondary malignant neoplasm of liver and intrahepatic bile duct; Z45.2 Encounter for adjustment and management of vascular access device
CPT/HCPCS: 36591; 80053; 83735; 85025

== ENCOUNTER 2019-06-30 12:13 | Outpatient (CLI) | payer MEDICARE, OTHER, SELFPAY ==
--- NOTE | 2019-06-30 11:50 | DI.US_ITS ---
EXAM: US EXTREMITY VENOUS BI US EXTREMITY VENOUS BI CLINICAL HISTORY: JYOTHI LE EDEMA, H/O COLON CA, METS TO LIVER, ? DVT, R60.0, C18.9, C78.7. JYOTHI LE EDEMA, H/O COLON CA, METS TO LIVER, ? DVT, R60.0, C18.9, C78.7 TECHNIQUE: Ultrasound performed using standard protocol. COMPARISON: No exams were available for comparison FINDINGS: Duplex venous ultrasound was performed according to the usual protocol. The deep veins are freely com pressible throughout and there is normal flow augmentation with manual calf compression. 2D and Doppl er evaluation are unremarkable. IMPRESSION: No evidence of deep venous thrombosis of the lower extremities
== END 2019-06-30 12:33 ==
PROVIDERS: PCP Neuromusculoskeletal Medicine & OMM; Visit Provider Internal Medicine Hematology & Oncology
DX: R60.0 Localized edema (principal); C18.9 Malignant neoplasm of colon, unspecified; C78.7 Secondary malignant neoplasm of liver and intrahepatic bile duct
CPT/HCPCS: 93970

== ENCOUNTER 2019-06-30 12:54 | Inpatient (IN) | payer MEDICARE, OTHER, SELFPAY ==
[2019-06-30] VITALS (35 sets, daily range): BP systolic 105–139; BP diastolic 53–74; PULSE 48–91; RESP 14–19; TEMP 35.7–36.3; O2SAT 97–100
--- NOTE | 2019-06-30 13:14 | ED.GENADUL_ITS ---
Discharge Plan Disposition Patient Disposition: [facility] INPATIENT Condition: Stable Discharge Details Chief Complaint: GenMedical Clinical Impression: Edema of both lower extremities, Swelling of right upper extremity, Hypomagnesemia, Hypoglycemia Admit Date/Time: 07/01/19 11:10 Admit Provider: Justin Sneed Attending Provider: Justin Sneed Primary Care Provider: Abdirashid Daley ED Provider: Liberty Hernandez Discharge Instructions Instructions: Leg Edema (ED), Hypomagnesemia (ED) Additional Instructions: Increase your Lasix to 40 mg once daily over the next 3 days. Your low magnesium may be due to your Lasix or from a deficiency in your diet. You can increase your magnesium with a magnesium supplement. Your blood sugar was very low today. Be sure you are eating foods with plenty of protein and healthy sugar such as peanut butter. Be sure to check your blood sugar at home. If your blood sugar is low, hold on taking your insulin. Call your primary care doctor today or tomorrow to schedule a follow-up appointment for reevaluation. Return immediately to the emergency department if you develop any worsening or new concerning symptoms. Discharge Data Discharge Date/Time-TO BE ENTERED AT DEPARTURE: 06/30/19 18:13 Discharge Physician: Altagracia Bazan Medical Decision Making <Altagracia Bazan DO - Last Filed: 06/30/19 16:16> 1330 -- 83-year-old male with a history of atrial fibrillation, colon cancer, diabetes, hypertension presents for chronic lower extremity edema for the past 2 weeks, and low magnesium noted on labs drawn today at the cancer center. Per the cancer center patient's magnesium level was 0.9 today. states that patient has had chronic lower extremity edema but this is been worse over the p ast 2 weeks. He also has right upper extremity edema for which she had an ultrasound done at [facility] 4 days ago which was negative for DVT. Patient had bilateral lower extremity Doppler ultrasounds today ordered by his oncologist Dr. Curran which were also negative for DVT. Patient has no acute complaints at this time. states that patient has complained of some neck pain since they performed to the right upper extremity ultrasound but patient denies any neck pain at this time. He has full range of motion of his neck without any focal complaints or deficits. He has 2+ pitting edema of distal lower extremities including feet. He has 2+ pitting edema of right upper extremity. He has a right chest port. His lungs are clear and abdomen nontender. He states he has had a good diet and denies any fever, cough, chest pain, shortness of breath, abdominal pain, vomiting, diarrhea. He is taking 20 mg of Lasix daily which may be contributing to his low magnesium. We will check repeat labs to assess potassium and magnesium. We will also check a BMP and chest x-ray to rule out CHF, although patient has no clinical symptoms or objective signs of CHF. Patient states he would prefer to go home if possible. 1420 --labs reviewed. Normal white blood cell count. Hemoglobin 9 which is his baseline. Magnesium 1. BNP 2943. Troponin negative. Glucose 39. Patient given peanut butter and crackers. We will also give a tray of food. Will replete magnesium. Chest x-ray no evidence of acute disease or acute CHF. 1515 --called to room for patient appearing more sluggish. Fingerstick glucose 34. He has already had peanut butter crackers and food. Patient given an amp of D50 and became more awake and alert. Patient still would prefer to go home. Discussed that we will watch a little while longer to see how his glucose response, and if it continues to drop, will recommend admission. 1540 --recheck glucose 113. 1600 --Case endorsed to IBETH Koenig to follow-up on patient's repeat glucose. If glucose continues to improve and patient feels better, okay to discharge home. If glucose is labile or continues to drop, will recommend admission. Medical Records Medical records reviewed: Yes I reviewed the patient's medical records. Imaging Data Radiologic Study: Radiologist's impression: XR CHEST 2V PA LATERAL CLINICAL HISTORY: b/l leg swelling, R arm swelling, r/o acute chf TECHNIQUE: COMPARISON: CT CHEST PE CTA from 12/29/2018 FINDINGS: The heart is at the upper limits normal in size. There is pleural scarring on the right. There is Port-A-Cath in position the tip of which overlies the SVC. Lungs are predominantly clear with some changes of scarring. IMPRESSION: No evidence of acute intrapulmonary process. Lab Data Lab results reviewed: Yes I reviewed the patient's lab results. Labs: Laboratory Tests Range/Units 06/30/19 06/30/19 13:40 13:40 WBC (4.4-10.8) k/cumm 5.28 RBC (4.50-6.00) m/cumm 3.04 L Hgb (13.5-17.5) g/dL 9.0 L Hct (40.0-50.0) % 28.0 L MCV (80-95) fL 92.1 MCH (27.0-33.0) pg 29.6 MCHC (32.0-36.0) g/dL 32.1 RDW (11.8-14.1) % 14.6 H Plt Count (130-400) x1000/uL 237 MPV (8.0-11.0) fL 9.6 Immature Gran % % 0.2 Neutrophils % 69.6 Lymphocytes % 12.3 Monocytes % 15.2 Eosinophils % 2.1 Basophils % 0.6 Absolute Neutrophils (1.2-6.7) k/cumm 3.68 Absolute Lymphocytes (1.2-3.4) k/cumm 0.65 L Absolute Monocytes (0.11-0.7) k/cumm 0.80 H Absolute Eosinophils (0.0-0.7) k/cumm 0.11 Absolute Basophils (0.0-0.2) k/cumm 0.03 Sodium (136-145) mmol/L 145 Potassium (3.5-5.1) mmol/L 4.5 Chloride (98-107) mmol/L 114 H Carbon Dioxide (21.0-32.0) mmol/L 21.8 Anion Gap (3-11) mmol/L 9.2 BUN (7-18) mg/dL 16 Creatinine (0.70-1.30) mg/dL 1.06 Estimated GFR/1.73 m2 (mL/min/1.73m2) >= 60.00 Glucose (74-106) mg/dL 39 L Calcium (8.5-10.1) mg/dL 7.7 L Magnesium (1.8-2.4) mg/dL 1.0 L Total Bilirubin (0.2-1.0) mg/dL 0.2 AST (15-37) U/L 18 ALT (16-63) U/L 24 Alkaline Phosphatase (46-116) U/L 143 H Troponin I (<0.06) ng/Ml < 0.05 NT-Pro-B Natriuret Pep (<300) pg/mL 2943 H Total Protein (6.4-8.2) g/dL 5.9 L Albumin (3.4-5.0) g/dL 2.7 L <IBETH Tracy - Last Filed: 07/01/19 12:17> Care is transitioned back to Hortensia continue monitoring for recurrence of hypoglycemia pending. Please see her initial note and exam for information. In brief, patient presented today from the cancer center with concern for hypomagnesemia, increased lower extremity edema. Initial laboratory evaluation, his low glucose was 39. His magnesium was elevating slightly to 1.0. This was replenished. BNP is elevated with no comparison. Patient does have notable lower extremity edema and plan is made to increase his Lasix while supplementing his magnesium. Potassium has been stable. Prior to Dr. Bazan's departure, glucose was 115. Patient is eating in the room. 1 hour after this, patient's glucose is downtrending 83. Patient did have his Levemir last night and took his typical medications this morning. He has had cookies, sandwich, D5 since being here and continues to downtrend. Plan at the time of surgery Hortensia's departure was to admit the patient if his glucose continued to be labile. With this downtrend, I am concerned that he may continue to have hypoglycemic episodes as he did here. Consulted with hospitalist who agrees to admission. HPI <Altagracia Bazan DO - Last Filed: 06/30/19 16:16> General Mode of arrival: ambulatory . Date/Time Provider Initiated Documentation: 06/30/19 12:59 . Limitations to Documentation: no limitations . Information obtained by: patient and family . History of Present Illness 83 year old M presents to the emergency department with the chief complaint of Bilateral lower extremity edema and low magnesium, Patient started experiencing this week(s) (3 weeks for leg edema, today for low magnesium) and it has been constant. other things that improve symptom(s), (Some improvement in pedal edema with Lasix) No exacerbating factors reported . Patient notes denies diaphoresis, fever/chills, headaches, loss of appetite, malaise, nausea/vomiting, rash, seizure, shortness of breath, syncope and weakness. Patient did receive the following treatments prior to arrival, none Related Data Home Medications Medication Instructions Recorded Confirmed Levemir U-100 Insulin 10 unit SQ PRN PRN 03/08/17 06/30/19 carvedilol 12.5 mg PO BID 03/08/17 06/30/19 glyburide 10 mg PO BID 03/08/17 06/30/19 simvastatin 40 mg PO HS 03/08/17 06/30/19 losartan 50 mg PO QAM 03/09/17 06/30/19 potassium chloride 20 meq PO DAILY 03/25/17 06/30/19 lidocaine 1 patch TP DAILY #15 each 12/29/18 06/30/19 Eliquis 2.5 mg PO BID 06/30/19 06/30/19 Prilosec OTC 20 mg PO BID 06/30/19 06/30/19 furosemide [Lasix] 20 mg PO DAILY 06/30/19 06/30/19 magnesium oxide 400 mg PO DAILY 10 Days #10 tab 06/30/19 Previous Rx's Medication Instructions Recorded lidocaine 1 patch TP DAILY #15 each 12/29/18 magnesium oxide 400 mg PO DAILY 10 Days #10 tab 06/30/19 Allergies Allergy/AdvReac Type Severity Reaction Status Date / Time bee venom protein (honey bee) AdvReac Unverified 12/29/18 15:52 General Stated Complaint: GenMedical DEBO: 3 Review of Systems <Altagracia Bazan, - Last Filed: 06/30/19 16:16> All systems reviewed & are unremarkable except as noted in HPI and below Constitutional Constitutional: Reports as per HPI, Denies chills and Denies fever(s) Eyes Eyes: Denies blurry vision ENT Ears, Nose, Mouth, and Throat: Denies dizziness, Denies sore throat and Denies throat swelling Cardiovascular Cardiovascular: Denies chest pain, Reports pedal edema, Reports leg edema and Denies dyspnea Respiratory Respiratory: Denies cough and Denies dyspnea Gastrointestinal Gastrointestinal: Denies abdominal pain, Denies diarrhea and Denies vomiting Genitourinary Genitourinary: Denies hematuria and Denies dysuria Musculoskeletal Musculoskeletal: Denies back pain and Denies numbness Integumentary/Breasts Skin/Breast: Denies lesions and Denies rash Neurologic Neurologic: Denies dizziness, Denies focal weakness and Denies numbness Allergic/Immunologic Allergic/Immunologic: Denies throat swelling PFSH <Altagracia Bazan DO - Last Filed: 06/30/19 16:16> Medical History Atrial fibrillation (Chronic) Colon cancer (Chronic) Diabetes (Chronic) HTN (hypertension) (Chronic) Renal insufficiency (Chronic) Surgical History History of tonsillectomy (Chronic) Social History Smoking/Tobacco Use Status: Former Tobacco Use Alcohol Intake: never Drug use: Never Substance use type: does not use Do you feel safe at home: Yes Do you feel safe in your relationship?: Yes Exam <Altagracia Bazan DO - Last Filed: 06/30/19 16:16> Const General: cooperative, no acute distress and ill appearing chronically Nutritional Appearance: overweight Orientation: alert, awake and oriented x3 HENMT Head: normal to inspection Face and sinus: normal facial exam Eyes General: appearance normal, both eyes and all related structures EOM: EOM intact bilaterally Neck Neck: normal visual inspection and No submandibular swelling Lymphatic: no lymphadenopathy noted Chest Chest: normal inspection of the chest and no tenderness Resp Effort & Inspection: normal respiratory effort and able to speak in complete sentences Auscultation: clear to auscultation bilaterally Cardio Rate: regular rate Rhythm: regular rhythm GI Inspection: normal to inspection Palpation: soft, not firm, not rigid and nontender Auscultation: normal bowel sounds Back/Spine/Pelvis Thoracic/Lumbar Spine: thoracic and lumbar spine normal to inspection Skin General skin exam: no rashes or lesions noted Neuro General: alert, awake and oriented x3 Cognition: normal cognition Speech: speech normal Motor: muscle tone normal throughout Sensory Exam: no sensory deficits noted Extrem General: normal to inspection, full ROM, normal capillary refill, no calf tenderness bilaterally and edema Laterality: bilateral (2+ pitting lower extremities; right upper extremity) Other: Multiple superficial lacerations noted to fingers of both hands. States this is due to a sharp nail. No evidence of cellulitis. Psych Appearance: grossly normal Mental Status: mental status grossly normal Speech and Movement: speech and movement normal Affect: normal affect Course <DO Amaury Alvarez Last Filed: 06/30/19 16:16> Vital Signs Vital signs: Vital Signs Temperature 96.8 F L 06/30/19 13:03 Pulse 53 L 06/30/19 13:03 Respiratory Rate 16 06/30/19 13:03 Blood Pressure 110/56 L 06/30/19 13:03 Pulse Oximetry 100 06/30/19 13:03 Temperature 96.8 F L 06/30/19 13:03 Temperature Source Temporal Artery Scan 06/30/19 13:03 Pulse 53 L 06/30/19 13:03 Respiratory Rate 16 06/30/19 13:03 Blood Pressure 110/56 L 06/30/19 13:03 Blood Pressure Position Sitting 06/30/19 13:03 Pulse Oximetry 100 06/30/19 13:03 Oxygen Delivery Method Room Air 06/30/19 13:03 Oxygen Flow Rate 0 06/30/19 13:03 Pain Level 2 06/30/19 13:03 Sign Out <Altagracia Bazan DO - Last Filed: 06/30/19 16:16> Sign Out Data: Sign Out Comment: Follow-up on repeat Accu-Cheks. If glucose continues to improve can discharged home. If glucose continues to be labile or continues to drop, recommend admission. Follow-up on urinalysis. Last updated by Altagracia Bazan DO at 06/30/19 16:13
[2019-06-30 13:56] LABS: Abs Immature Grans 0.01 k/cumm (0.0-0.09); Absolute Basophil Count 0.03 k/cumm (0.0-0.2); Absolute Eosinophil Count 0.11 k/cumm (0.0-0.7); Absolute Lymphocyte Count 0.65 k/cumm (1.2-3.4); Absolute Neutrophil Count 3.68 k/cumm (1.2-6.7); Basophils % 0.6; Eosinophils % 2.1; Immature Grans % 0.2 %; Lymphocytes % 12.3; Mean Corp. HGB Concentration 32.1 g/dL (32.0-36.0); Mean Corpuscular Hemoglobin 29.6 pg (27.0-33.0); Mean Corpuscular Volume 92.1 fL (80-95); Mean Platelet Volume 9.6 fL (8.0-11.0); Monocytes % 15.2; Neutrophils % 69.6; Platelet Count 237 x1000/uL (130-400); RBC 3.04 m/cumm (4.50-6.00); RBC Distribution Width 14.6 % (11.8-14.1); White Blood Cell Count 5.28 k/cumm (4.4-10.8)
--- NOTE | 2019-06-30 14:11 | DI.RAD_ITS ---
EXAM: XR CHEST 2V PA LATERAL CLINICAL HISTORY: b/l leg swelling, R arm swelling, r/o acute chf TECHNIQUE: COMPARISON: CT CHEST PE CTA from 12/29/2018 FINDINGS: The heart is at the upper limits normal in size. There is pleural scarring on the right. There is P ort-A-Cath in position the tip of which overlies the SVC. Lungs are predominantly clear with some ch anges of scarring. IMPRESSION: No evidence of acute intrapulmonary process.
[2019-06-30 14:14] LABS: ALT 24 U/L (16-63); AST 18 U/L (15-37); Albumin 2.7 g/dL (3.4-5.0); Alkaline Phosphatase 143 U/L (46-116); Anion Gap 9.2 mmol/L (3-11); BUN 16 mg/dL (7-18); Bilirubin, Total 0.2 mg/dL (0.2-1.0); CO2 21.8 mmol/L (21.0-32.0); CREATININE 1.06 mg/dL (0.70-1.30); Calcium 7.7 mg/dL (8.5-10.1); Chloride 114 mmol/L (98-107); NT-proBNP 2943 pg/mL (<300); Potassium 4.5 mmol/L (3.5-5.1); Sodium 145 mmol/L (136-145); Total Protein 5.9 g/dL (6.4-8.2)
[2019-06-30 14:18] LABS: Glucose 39 mg/dL (74-106); Troponin I < 0.05 ng/Ml (<0.06)
[2019-06-30] MEDS: MAGNESIUM SULFATE 2 GM/50 ML BAG IVPB ×2 (14:30→23:28)
[2019-06-30] MEDS: Dextrose 50%-Water 25 GM/50 ML SYR (15:27)
[2019-06-30 16:13] LABS: Bilirubin Negative (Negative); Blood Small (Negative); Clarity Clear (Clear); Glucose Negative (Negative); Ketones Negative (Negative); Leukocyte Esterase Negative (Negative); Nitrite Negative (Negative); Urobilinogen 0.2 EU/dL (Up TO 0.2); pH 5.5 (5-8)
[2019-06-30 16:22] LABS: Bacteria Negative HPF (Negative); C & S Indicated? No; Crystals Mod Calcium Oxalate HPF (Negative); Epithelial Cells Negative HPF (Negative); Mucus Negative (Negative); WBC Negative HPF (0-5)
--- NOTE | 2019-06-30 17:28 | W.PM.HP.N ---
Date of service: 06/30/19 Time of Service: 17:30 Assessment and Plan Assessment and plan (1) Hypoglycemia: Start date: 06/30/19 Status: Acute Assessment and plan: This is an 83-year-old gentleman who was sent over from oncology after having lab performed which revealed hypomagnesemia. Patient was also weak and had increasing edema of his lower extremities. He had evaluation for DVT of his lower extremities and he states his right upper extremity with negative evaluation. He is on Eliquis chronically either for atrial fibrillation or her right upper extremity DVT. Patient is somewhat conflicting with this report. This can be sorted out in the morning but bottom line is he needs to be admitted for monitoring recurrent hypoglycemia in the ED with initially a glucometer measuring 34 when he was more confused. He may have taken his glimepiride in the morning but he did not have his Levemir this evening because of his hypoglycemia. He will have glucometer measurements frequently until stable and then every 4 hours and monitor until morning. If he does better in the morning and is stable he may return home for continued outpatient care. His meds do need to be supervised at home. (2) Hypomagnesemia: Start date: 06/30/19 Status: Acute Assessment and plan: Serum magnesium was less than 1 and he did receive 2 g of magnesium IV in the ED with a repeat of 2 g to be given on the floor with his serum level still low at 1.3 mg/dL. He will be monitored on telemetry while receiving his IV magnesium. He is on chronic Lasix and this may be problematic with his low magnesium. He should be on magnesium supplement which was initiated in the ED and will be continued at home. (3) Edema of both lower extremities: Start date: 06/30/19 Status: Chronic Assessment and plan: Edema lower extremities and upper extremities worsening with DVT evaluation with venous Dopplers negative in the ED. Patient is on Eliquis and this will be continued. He has hypoalbuminemia and this could be contributing to some of his edema. Continue gentle diuresis avoiding worsening of CKD and supplement potassium as has been ordered as well as IV magnesium for magnesium at least closer to 2 with follow-up. He will be maintained on oral magnesium once he is discharged. He was not given extra Lasix in the ED and will be given his usual dose with possibly some adjustment before discharge. It would be safest to do this with his family present to discuss his home medications the patient being a poor historian. (4) Atrial fibrillation: Status: Chronic Assessment and plan: Controlled rate with occasional pauses and beat to beat count below 50. Continue monitoring with telemetry as we replenish IV magnesium. Qualifiers: Atrial fibrillation type: unspecified Qualified Code(s): I48.91 - Unspecified atrial fibrillation (5) Colon cancer: Status: Chronic Assessment and plan: Colon cancer status post resection in the past now with recurrence and liver metastases with new round of chemotherapy ongoing causing some side effects prompting ED evaluation for edema and weakness as well as electrolyte abnormality. Patient is on Eliquis with no evidence of DVT with venous Dopplers was done in the ED. There is metastases of the colon cancer to the liver by history. Patient is a DNR/DNI. It appears his chemotherapy will be put on hold until he recovers and is stronger. Patient does wish to go home as soon as reasonable. Qualifiers: Colon location: unspecified part of colon Qualified Code(s): C18.9 - Malignant neoplasm of colon, unspecified History of Present Illness History of Present Illness Chief Complaint: Low blood sugar with increasing edema Narrative: This is an 83-year-old gentleman who has a history of colon cancer with resection several years ago status post chemotherapy at that time and then recurrence with metastases to the liver more recently with a new chemotherapy regimen of the last several weeks. When he was in treatment for chemotherapy he was thought to be more edematous than usual over the last 2 weeks of his lower extremities and lab did reveal hypomagnesemia which required ED evaluation. He did receive IV magnesium in the ED and has a history of chronic atrial fibrillation with no exacerbation of his cardiac status obvious. His BNP was elevated in the ED. He has no history of heart failure. He does have swelling of his right arm which is chronic and he states that this was a DVT for which she was placed on Eliquis in the recent past. He did not think he was on Eliquis for his atrial fibrillation which is chronic. The patient is somewhat a poor historian. ED evaluation of the lower extremity because of his recent edema did not reveal DVTs and the patient was admitted for observation because of hypoglycemia in the ED after he was given IV magnesium replacement. The ED physician stated that the patient did not take his glyburide today according to his but the patient states he did take his 2 tablets of glyburide in the morning. On his medication list glyburide is listed as being taken twice a day. Once again the patient's was not present and he is a poor historian. Pertinent review of systems with the patient is otherwise negative with patient denying any abdominal bloating or discomfort with his recurrent colon cancer. Most of his pain is in his neck with arthritis for which he takes topical lidocaine. He denies any abdominal pain or other musculoskeletal pain. He denies any problems passing urine. He has no respiratory or cardiovascular complaints other than his edema. Review of Systems Narrative: 13 point review of systems otherwise unrevealing or stable. [facility] Medical History Atrial fibrillation (Chronic) Colon cancer (Chronic) Diabetes (Chronic) HTN (hypertension) (Chronic) Renal insufficiency (Chronic) Surgical History History of tonsillectomy (Chronic) Social History Smoking/Tobacco Use Status: Former Tobacco Use Alcohol Intake: never Drug use: Never Substance use type: does not use Do you feel safe at home: Yes Do you feel safe in your relationship?: Yes Meds Home Medications and Allergies Home Medications Medication Instructions Recorded Confirmed Type Levemir U-100 Insulin 10 unit SQ PRN PRN 03/08/17 06/30/19 History carvedilol 12.5 mg PO BID 03/08/17 06/30/19 History glyburide 10 mg PO BID 03/08/17 06/30/19 History simvastatin 40 mg PO HS 03/08/17 06/30/19 History losartan 50 mg PO QAM 03/09/17 06/30/19 History potassium chloride 20 meq PO DAILY 03/25/17 06/30/19 History lidocaine 1 patch TP DAILY #15 each 12/29/18 06/30/19 Rx Eliquis 2.5 mg PO BID 06/30/19 06/30/19 History Prilosec OTC 20 mg PO BID 06/30/19 06/30/19 History furosemide [Lasix] 20 mg PO DAILY 06/30/19 06/30/19 History magnesium oxide 400 mg PO DAILY 10 Days #10 tab 06/30/19 Rx Allergies Allergy/AdvReac Type Severity Reaction Status Date / Time bee venom protein (honey bee) AdvReac Unverified 12/29/18 15:52 Exam Narrative Exam Narrative: General: Patient appears appropriate for age with slight confusion on details of recent memory but appears to have good remote memory. He is alert and oriented at least to person and place. He is in no acute distress. HEENT: Normocephalic, eyes with pupils equal and reactive to light symmetrically, sclera anicteric and extraocular movement intact. Oropharynx with slightly dry oral mucosa. Neck: Supple without JVD. Lungs: Clear to auscultation and percussion with fair aeration. Heart: Irregularly irregular rhythm with normal rate and no appreciable murmurs or gallops. Distant heart sounds. Back: Without CVA tenderness. Abdomen: Protuberant and soft with some guarding to palpation but no focalizing tenderness, no rebound and no palpable masses though patient is a difficult exam with his obese contour and slight guarding. No appreciable hepatosplenomegaly. Genitalia: Circumcised penis with normal testicles, rectal exam deferred. Extremities: 3+ nonpitting edema over right upper extremity and both lower extremities, loss of hair and shiny atrophic skin over the lower extremities with fair capillary refill. No cyanosis no clubbing. Arthritic changes diffusely with some decreased range of motion of the larger joints. Skin: Pale, warm and dry with no bruising noted. Neuro: Cranial nerves II through XII grossly intact, no focalizing motor deficits. Psych: Normal mood and affect with good eye contact. No abnormal thought processes. He appears to have short-term memory loss with his history conflicting with that given in the ED by his family. Results Imaging Imaging Studies: Exam(s) a RAD:XR chest 2V PA & lateral EXAM: XR CHEST 2V PA LATERAL CLINICAL HISTORY: b/l leg swelling, R arm swelling, r/o acute chf TECHNIQUE: COMPARISON: CT CHEST PE CTA from 12/29/2018 FINDINGS: The heart is at the upper limits normal in size. There is pleural scarring on the right. There is Port-A-Cath in position the tip of which overlies the SVC. Lungs are predominantly clear with some changes of scarring. IMPRESSION: No evidence of acute intrapulmonary proces Dictated By: Davian West M.D. 06/30/19 1426 Exam(s) a US:US extremity venous BI EXAM: US EXTREMITY VENOUS BI US EXTREMITY VENOUS BI CLINICAL HISTORY: JYOTHI LE EDEMA, H/O COLON CA, METS TO LIVER, ? DVT, R60.0, C18.9, C78.7. JYOTHI LE EDEMA, H/O COLON CA, METS TO LIVER, ? DVT, R60.0, C18.9, C78.7 TECHNIQUE: Ultrasound performed using standard protocol. COMPARISON: No exams were available for comparison FINDINGS: Duplex venous ultrasound was performed according to the usual protocol. The deep veins are freely compressible throughout and there is normal flow augmentation with manual calf compression. 2D and Doppler evaluation are unremarkable. IMPRESSION: No evidence of deep venous thrombosis of the lower extremities Dictated By: Davian West M.D. 06/30/19 Labs Result diagrams: 06/30/19 13:40 06/30/19 13:40 Labs: Laboratory Results - last 24 hr 06/30/19 06/30/19 06/30/19 13:40 13:40 16:10 WBC 5.28 RBC 3.04 L Hgb 9.0 L Hct 28.0 L MCV 92.1 MCH 29.6 MCHC 32.1 RDW 14.6 H Plt Count 237 MPV 9.6 Immature Gran % 0.2 Neutrophils % 69.6 Lymphocytes % 12.3 Monocytes % 15.2 Eosinophils % 2.1 Basophils % 0.6 Absolute Neutrophils 3.68 Absolute Lymphocytes 0.65 L Absolute Monocytes 0.80 H Absolute Eosinophils 0.11 Absolute Basophils 0.03 Sodium 145 Potassium 4.5 Chloride 114 H Carbon Dioxide 21.8 Anion Gap 9.2 BUN 16 Creatinine 1.06 Estimated GFR/1.73 m2 >= 60.00 Glucose 39 L Calcium 7.7 L Magnesium 1.0 L Total Bilirubin 0.2 AST 18 ALT 24 Alkaline Phosphatase 143 H Troponin I < 0.05 NT-Pro-B Natriuret Pep 2943 H Total Protein 5.9 L Albumin 2.7 L Urine Color Yellow Urine Clarity Clear Urine pH 5.5 Ur Specific [place] 1.020 Urine Protein Negative Urine Ketones Negative Urine Blood Small H Urine Nitrite Negative Urine Bilirubin Negative Urine Urobilinogen 0.2 Ur Leukocyte Esterase Negative Urine RBC 3-5 H Urine WBC Negative Ur Epithelial Cells Negative Urine Crystals Mod calcium oxalate Urine Bacteria Negative Urine Mucus Negative Ur Culture Indicated? No Urine Glucose Negative Last Vital Signs Temp 36 C L 06/30/19 13:03 Pulse 65 06/30/19 17:01 Resp 16 06/30/19 13:50 BP 139/63 06/30/19 17:01 Pulse Ox 100 06/30/19 15:50
[2019-06-30] MEDS: Apixaban 2.5 MG TAB PO (20:01)
[2019-06-30] MEDS: Omeprazole 20 MG CAPCR PO (20:01)
[2019-06-30] MEDS: Carvedilol 12.5 MG TAB PO (20:01)
[2019-06-30 21:54] LABS: Magnesium 1.3 mg/dL (1.8-2.4)
[2019-06-30] MEDS: Simvastatin 40 MG TAB PO (22:22)
[2019-06-30] MEDS: Normal Saline Flush 10 ML SYR IVP (23:29)
[2019-07-01] VITALS (12 sets, daily range): BP systolic 106–131; BP diastolic 60–69; PULSE 38–75; RESP 17–19; TEMP 35.8–36.6; O2SAT 96–100
[2019-07-01] MEDS: Normal Saline Flush 10 ML SYR IVP ×3 (06:41→15:19)
[2019-07-01 07:17] LABS: HCT 28.7 % (40.0-50.0); HGB 9.5 g/dL (13.5-17.5); Mean Corp. HGB Concentration 33.1 g/dL (32.0-36.0); Mean Corpuscular Hemoglobin 30.4 pg (27.0-33.0); Mean Corpuscular Volume 91.7 fL (80-95); Mean Platelet Volume 9.9 fL (8.0-11.0); Platelet Count 247 x1000/uL (130-400); RBC 3.13 m/cumm (4.50-6.00); RBC Distribution Width 14.6 % (11.8-14.1); White Blood Cell Count 5.87 k/cumm (4.4-10.8)
[2019-07-01 07:35] LABS: ALT 20 U/L (16-63); AST 16 U/L (15-37); Albumin 2.4 g/dL (3.4-5.0); Alkaline Phosphatase 132 U/L (46-116); Anion Gap 9.3 mmol/L (3-11); BUN 19 mg/dL (7-18); Bilirubin, Total 0.3 mg/dL (0.2-1.0); CO2 20.7 mmol/L (21.0-32.0); CREATININE 1.09 mg/dL (0.70-1.30); Calcium 7.8 mg/dL (8.5-10.1); Chloride 117 mmol/L (98-107); Glucose 163 mg/dL (74-106); Magnesium 1.5 mg/dL (1.8-2.4); Potassium 4.5 mmol/L (3.5-5.1); Sodium 147 mmol/L (136-145); Total Protein 5.6 g/dL (6.4-8.2)
[2019-07-01] MEDS: Omeprazole 20 MG CAPCR PO (08:09)
[2019-07-01] MEDS: Potassium Chloride 10 MEQ CAPCR 20 MEQ PO (08:09)
[2019-07-01] MEDS: Lidocaine 5% Patch 1 PATCH TP (08:09)
[2019-07-01] MEDS: Carvedilol 12.5 MG TAB PO (08:09)
[2019-07-01] MEDS: Furosemide 20 MG TAB PO (08:09)
[2019-07-01] MEDS: Apixaban 2.5 MG TAB PO ×2 (08:10→20:02)
[2019-07-01] MEDS: Losartan 50 MG TAB PO (08:10)
--- NOTE | 2019-07-01 11:21 | PHARADMIT ---
Addendum entered by Nata More 07/02/19 12:37: Pharmacy Note Subjective pt with metastsic colon CA with hypoglycemia and hypomagnesemia Objective bp 99/54, HR 44, wt up 2.3kg, Mag 1.9, K 4.9 Assessment BP meds on hold due to low HR, Levimir restarts tonight, KCL PO stopped due to Mag replaced Plan checking for DVT in arm due to edema and h/o DVT in that arm Original Note: Admission Pharmacy Clinical Review HYPOGLYCEMIA WITH niddm, HYPOMAGNESEMIA, RECTAL CA Code Status DNR/DNI Current Weight 97.9 kg Renally Cleared and Narrow Therapeutic Index Meds CRCL ~57ML/MIN QTc Value / Action Taken 473 BP Control, Fever 130/68 AFEBRILE Electrolytes reviewed MAG 1.5, BOLUS ORDERED DVT Prophylaxis APIXABAN Opiate Usage / Scheduled Bowel Regimen Ordered NO/PRN Plt/SCr for Heparin / Enoxaparin 247/1.09 INR for Warfarin NA H/H stable, WBC/Bands 9.5/28.7 WBC 5.87 Antibiotic appropriateness NA Cultures and Sensitivities NA Surgical ABX d/c within 24 hr NA DM control / Insulin Dosing FS 165, WILL RESTART DIABETIC MEDS SOON Heart Failure (Check EF%) (MONTY's, B-Block, Diuretics) NA IV to PO Switch Home Meds Reviewed Home Meds Not Ordered Levemir U-100 Insulin 10 unit SQ PRN PRN glyburide 10 mg PO BID magnesium oxide 400 mg PO DAILY 10 Days Comments
[2019-07-01] MEDS: MAGNESIUM SULFATE 4 GM/100 ML BAG IVPB (11:22)
--- NOTE | 2019-07-01 13:27 | PDOC.CMIN ---
- If Service Date Differs Date of service: 07/01/19 Time of Service: 13:27 Care Management Initial Assess REASON FOR HOSPITALIZATION:: Hypoglycemia,hypomagnesemia PAST MEDICAL HISTORY/PAST SURGICAL HISTORY:: Medical History: Atrial fibrillation (Chronic). Colon cancer (Chronic). Diabetes (Chronic). HTN (hypertension) (Chronic). Renal insufficiency (Chronic). Surgical History: History of tonsillectomy (Chronic) PREVIOUS FUNCTIONAL STATUS/SOCIAL/FAMILY SUPPORTS:: Holger lives in a single family home in [place] [facility] [place] with his Ria. They have had a home in [place] for 30 years but moved here from [place] permanently 15 years ago when Holger retired. 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 Holger and Ria have 4 children who all still live on [place]. Holger is independent with care and ADLs and continues to drive. He currently does not receive any services at home, however he has, and uses, a walker, cane and wheelchair for mobility as needed. CURRENT FUNCTIONAL STATUS:: Holger was sitting up in a chair when CM came to see him. He was pleasant and agreed to meet with CM, engaging readily in conversation. Holger shared details of his cancer history and the fact that he has been receiving chemotherapy for the past 3 years. He states that he and his are managing pretty well and does not forsee the need for additional services at this time. They have discussed future plans if they are not able to maintain their independence but are unclear about what they will do. ADVANCE DIRECTIVES:: None on file at [facility] CODE STATUS:: DNR/DNI INSURANCE COVERAGE / FINANCIAL ISSUES:: Medicare. [employer] CURRENT HOME/COMMUNITY SERVICES/EQUIPMENT:: Has cane, walker and wheelchair. No additional services PRIMARY CARE PHYSICIAN:: Abdirashid Daley at [facility] POTENTIAL DISCHARGE NEEDS:: Follow up with PCP, Oncology and discharge plan of care. PATIENT/FAMILY EDUCATION NEEDS:: Discharge plan, limitations, Ask Me Three. TRANSPORTATION:: via private vehicle with when ready PLAN:: Holger will likely be discharged home with no new services. He will follow up with his PCP, Oncologist and discharge plan of care. He will trasport with his via private vehicle. CM will continue to support patient, family and discharge needs.
--- NOTE | 2019-07-01 13:34 | W.PM.PROGNOT ---
Date of Service Date of service: 07/01/19 Time of Service: 13:34 Assessment and Plan Assessment and plan (1) Hypoglycemia: Status: Acute Assessment and plan: Resolved. Continue to hold glipizide and long acting insulin. Now that BGs permit it, would start rapid acting insulin. I expect that the patient will likely no longer be on glipizide on discharge, and long acting insulin would have to be decreased - will monitor. (2) Hypomagnesemia: Status: Acute Assessment and plan: Continue to monitor on tele; recheck in am. Repleting both IV and PO. (3) Edema of both lower extremities: Status: Chronic Assessment and plan: Venous doppler ruled out DVT's. 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 Will check echo. Transition lasix to IV. Elevate extremities. Monitor strict I/O's and daily weights. (4) Edema of upper extremity: Status: Acute Assessment and plan: Recurrent - previously, the patient did have a DVT in that arm, and that is one of the reasons why he is on eliquis. Recheck venous doppler of RUE. For now, continue eliquis at current dose (2.5 mg PO BID). (5) Atrial fibrillation: Status: Chronic Assessment and plan: Continue monitoring on tele, but decrease coreg dose and place holding parameters. Qualifiers: Atrial fibrillation type: unspecified Qualified Code(s): I48.91 - Unspecified atrial fibrillation (6) Colon cancer: Status: Chronic Assessment and plan: Metastatic (Stage IV), on chemo. DNR/DNI. Will consult palliative care. Qualifiers: Colon location: unspecified part of colon Qualified Code(s): C18.9 - Malignant neoplasm of colon, unspecified (7) IDDM (insulin dependent diabetes mellitus): Status: Chronic Assessment and plan: See hypoglycemia (8) DVT prophylaxis: Status: Acute Assessment and plan: On therapeutic eliquis (9) Discharge planning issues: Status: Acute Assessment and plan: DNR/DNI Palliative care and physical therapy consulted Subjective Subjective Interval history since last seen: Mr Sharpe states he is feeling a little bit better. He states he coughed while eating x 1 - nothing came up. Denies dizziness, chest pain, shortness of breath, nausea. He has not been out of bed yet. States his leg edema is starting to go down. States his RUE got more swollen 1 1/2 weeks ago. He is worried that a blood clot had recurred. No hypoglycemia overnight or so far today. Exam Narrative Exam Narrative: General: Very pleasant elderly male, A&OX3, sitting comfortably in a chair, initially napping, easily arousable HEENT: EOMI, MMM Heart: RRR, + quiet CHARLIE Lungs: CTAB Abdomen: soft, nontender Extremities: 3+ BLE pitting edema - symmetric; 2+ RUE edema Objective Objective Clinical Data: Abnormal lab results 06/30/19 06/30/19 06/30/19 Range/Units 13:40 13:40 16:10 RBC 3.04 L (4.50-6.00) m/cumm Hgb 9.0 L (13.5-17.5) g/dL Hct 28.0 L (40.0-50.0) % RDW 14.6 H (11.8-14.1) % Absolute Lymphocytes 0.65 L (1.2-3.4) k/cumm Absolute Monocytes 0.80 H (0.11-0.7) k/cumm Sodium (136-145) mmol/L Chloride 114 H (98-107) mmol/L Carbon Dioxide (21.0-32.0) mmol/L BUN (7-18) mg/dL Glucose 39 L (74-106) mg/dL Calcium 7.7 L (8.5-10.1) mg/dL Magnesium 1.0 L (1.8-2.4) mg/dL Alkaline Phosphatase 143 H (46-116) U/L NT-Pro-B Natriuret Pep 2943 H (<300) pg/mL Total Protein 5.9 L (6.4-8.2) g/dL Albumin 2.7 L (3.4-5.0) g/dL Urine Blood Small H (Negative) Urine RBC 3-5 H (0-2) HPF 06/30/19 07/01/19 07/01/19 Range/Units 21:32 06:45 06:45 RBC 3.13 L (4.50-6.00) m/cumm Hgb 9.5 L (13.5-17.5) g/dL Hct 28.7 L (40.0-50.0) % RDW 14.6 H (11.8-14.1) % Absolute Lymphocytes (1.2-3.4) k/cumm Absolute Monocytes (0.11-0.7) k/cumm Sodium 147 H (136-145) mmol/L Chloride 117 H (98-107) mmol/L Carbon Dioxide 20.7 L (21.0-32.0) mmol/L BUN 19 H (7-18) mg/dL Glucose 163 H D (74-106) mg/dL Calcium 7.8 L (8.5-10.1) mg/dL Magnesium 1.3 L 1.5 L (1.8-2.4) mg/dL Alkaline Phosphatase 132 H (46-116) U/L NT-Pro-B Natriuret Pep (<300) pg/mL Total Protein 5.6 L (6.4-8.2) g/dL Albumin 2.4 L (3.4-5.0) g/dL Urine Blood (Negative) Urine RBC (0-2) HPF Vital Signs Temperature 36.1 C L 07/01/19 11:27 Temperature Source Tympanic 07/01/19 11:27 Pulse 54 L 07/01/19 11:27 Pulse Rhythm Irregular 07/01/19 08:43 Pulse 69 06/30/19 17:31 Respiratory Rate 18 07/01/19 11:27 Respiratory Effort Non-Labored 07/01/19 08:43 Respiratory Depth Normal 07/01/19 08:43 Respiratory Pattern Normal 07/01/19 08:43 Blood Pressure 106/62 07/01/19 11:27 Blood Pressure Mean 86 06/30/19 17:31 Blood Pressure Position Sitting 06/30/19 13:03 Pulse Oximetry 100 07/01/19 11:27 Oxygen Delivery Method Room Air 07/01/19 11:27 Oxygen Flow Rate 0 07/01/19 11:27 Pain Level 0 07/01/19 11:27 Intake & Output 06/30/19 07/01/19 07/01/19 23:59 11:59 23:59 Intake Total 70 / 70 100 / 100 Output Total 300 / 300 850 / 850 Balance -230 / -230 -750 / -750 Weight 99.79 kg 97.9 kg Intake: IV 70 / 70 Oral 100 / 100 Output: Urine 300 / 300 850 / 850 Other: Urine Color Straw Yellow Urine Appearance Clear Clear Urine Odor Normal Stool Size Moderate Stool Characteristics Man Voiding Methods Toilet Toilet Laboratory Results WBC 5.87 k/cumm (4.4-10.8) 07/01/19 06:45 RBC 3.13 m/cumm (4.50-6.00) L 07/01/19 06:45 Hgb 9.5 g/dL (13.5-17.5) L 07/01/19 06:45 Hct 28.7 % (40.0-50.0) L 07/01/19 06:45 MCV 91.7 fL (80-95) 07/01/19 06:45 MCH 30.4 pg (27.0-33.0) 07/01/19 06:45 MCHC 33.1 g/dL (32.0-36.0) 07/01/19 06:45 RDW 14.6 % (11.8-14.1) H 07/01/19 06:45 Plt Count 247 x1000/uL (130-400) 07/01/19 06:45 MPV 9.9 fL (8.0-11.0) 07/01/19 06:45 Immature Gran % 0.2 % 06/30/19 13:40 Neutrophils % 69.6 06/30/19 13:40 Lymphocytes % 12.3 06/30/19 13:40 Monocytes % 15.2 06/30/19 13:40 Eosinophils % 2.1 06/30/19 13:40 Basophils % 0.6 06/30/19 13:40 Absolute Neutrophils 3.68 k/cumm (1.2-6.7) 06/30/19 13:40 Absolute Lymphocytes 0.65 k/cumm (1.2-3.4) L 06/30/19 13:40 Absolute Monocytes 0.80 k/cumm (0.11-0.7) H 06/30/19 13:40 Absolute Eosinophils 0.11 k/cumm (0.0-0.7) 06/30/19 13:40 Absolute Basophils 0.03 k/cumm (0.0-0.2) 06/30/19 13:40 Sodium 147 mmol/L (136-145) H 07/01/19 06:45 Potassium 4.5 mmol/L (3.5-5.1) 07/01/19 06:45 Chloride 117 mmol/L (98-107) H 07/01/19 06:45 Carbon Dioxide 20.7 mmol/L (21.0-32.0) L 07/01/19 06:45 Anion Gap 9.3 mmol/L (3-11) 07/01/19 06:45 BUN 19 mg/dL (7-18) H 07/01/19 06:45 Creatinine 1.09 mg/dL (0.70-1.30) 07/01/19 06:45 Estimated GFR/1.73 m2 >= 60.00 (mL/min/1.73m2) 07/01/19 06:45 Glucose 163 mg/dL (74-106) H D 07/01/19 06:45 Calcium 7.8 mg/dL (8.5-10.1) L 07/01/19 06:45 Magnesium 1.5 mg/dL (1.8-2.4) L 07/01/19 06:45 Total Bilirubin 0.3 mg/dL (0.2-1.0) 07/01/19 06:45 AST 16 U/L (15-37) 07/01/19 06:45 ALT 20 U/L (16-63) 07/01/19 06:45 Alkaline Phosphatase 132 U/L (46-116) H 07/01/19 06:45 Troponin I < 0.05 ng/Ml (<0.06) 06/30/19 13:40 NT-Pro-B Natriuret Pep 2943 pg/mL (<300) H 06/30/19 13:40 Total Protein 5.6 g/dL (6.4-8.2) L 07/01/19 06:45 Albumin 2.4 g/dL (3.4-5.0) L 07/01/19 06:45 Urine Color Yellow (Yellow) 06/30/19 16:10 Urine Clarity Clear (Clear) 06/30/19 16:10 Urine pH 5.5 (5-8) 06/30/19 16:10 Ur Specific [place] 1.020 (1.005-1.025) 06/30/19 16:10 Urine Protein Negative mg/dL (Negative) 06/30/19 16:10 Urine Ketones Negative mg/dL (Negative) 06/30/19 16:10 Urine Blood Small (Negative) H 06/30/19 16:10 Urine Nitrite Negative (Negative) 06/30/19 16:10 Urine Bilirubin Negative (Negative) 06/30/19 16:10 Urine Urobilinogen 0.2 EU/dL (Up TO 0.2) 06/30/19 16:10 Ur Leukocyte Esterase Negative (Negative) 06/30/19 16:10 Urine RBC 3-5 HPF (0-2) H 06/30/19 16:10 Urine WBC Negative HPF (0-5) 06/30/19 16:10 Ur Epithelial Cells Negative HPF (Negative) 06/30/19 16:10 Urine Crystals Mod calcium oxalate HPF (Negative) 06/30/19 16:10 Urine Bacteria Negative HPF (Negative) 06/30/19 16:10 Urine Mucus Negative (Negative) 06/30/19 16:10 Ur Culture Indicated? No 06/30/19 16:10 Urine Glucose Negative mg/dL (Negative) 06/30/19 16:10 EKG: HR 72, ?SR with prolonged WV/1st degree AV block vs Afib, though relatively regular. Tele: HR 70's with occasional missed beat, 1st degree AV block with very prolonged [place] interval.
[2019-07-01] MEDS: Furosemide 20 MG/2 ML VIAL IVP (15:19)
[2019-07-01] MEDS: Insulin Aspart 300 UNITS/3 ML PEN SC ×2 (17:03→22:37)
[2019-07-01] MEDS: Carvedilol 12.5 MG TAB 6.25 MG PO (20:00)
[2019-07-01] MEDS: Omeprazole 20 MG CAPCR 40 MG PO (20:02)
[2019-07-01] MEDS: Magnesium Chloride 64 MG TABCR PO (20:02)
[2019-07-01] MEDS: Docusate Sodium 100 MG CAP PO (20:02)
[2019-07-01] MEDS: LIDOCAINE Patch Removal 1 EACH TP (20:03)
[2019-07-01 21:56] LABS: Glucose 341 mg/dL (74-106)
[2019-07-01] MEDS: Simvastatin 40 MG TAB PO (22:37)
[2019-07-02] VITALS (7 sets, daily range): BP systolic 92–111; BP diastolic 54–68; PULSE 40–54; RESP 16–21; TEMP 35.9–36.5; O2SAT 97–100
[2019-07-02] MEDS: Normal Saline Flush 10 ML SYR IVP ×4 (06:32→11:22)
[2019-07-02 07:35] LABS: Abs Immature Grans 0.01 k/cumm (0.0-0.09); Absolute Basophil Count 0.02 k/cumm (0.0-0.2); Absolute Eosinophil Count 0.03 k/cumm (0.0-0.7); Absolute Lymphocyte Count 0.63 k/cumm (1.2-3.4); Absolute Monocyte Count 0.62 k/cumm (0.11-0.7); Basophils % 0.2; Eosinophils % 0.4; HCT 26.7 % (40.0-50.0); HGB 8.7 g/dL (13.5-17.5); Immature Grans % 0.1 %; Lymphocytes % 7.5; Mean Corp. HGB Concentration 32.6 g/dL (32.0-36.0); Mean Corpuscular Hemoglobin 29.7 pg (27.0-33.0); Mean Corpuscular Volume 91.1 fL (80-95); Mean Platelet Volume 10.4 fL (8.0-11.0); Monocytes % 7.4; Neutrophils % 84.4; Platelet Count 195 x1000/uL (130-400); RBC 2.93 m/cumm (4.50-6.00); RBC Distribution Width 14.4 % (11.8-14.1); White Blood Cell Count 8.43 k/cumm (4.4-10.8)
[2019-07-02 07:39] LABS: Absolute Neutrophil Count 7.11 k/cumm (1.2-6.7)
[2019-07-02 07:40] LABS: Anion Gap 8.7 mmol/L (3-11); BUN 28 mg/dL (7-18); CO2 21.3 mmol/L (21.0-32.0); Calcium 7.8 mg/dL (8.5-10.1); Chloride 114 mmol/L (98-107); Estimated GFR 52.85 (mL/min/1.73m2); Glucose 161 mg/dL (74-106); Magnesium 1.9 mg/dL (1.8-2.4); Potassium 4.9 mmol/L (3.5-5.1); Sodium 144 mmol/L (136-145)
[2019-07-02] MEDS: Insulin Aspart 300 UNITS/3 ML PEN SC ×4 (07:59→21:44)
[2019-07-02] MEDS: Magnesium Chloride 64 MG TABCR PO ×2 (08:00→19:58)
[2019-07-02] MEDS: Omeprazole 20 MG CAPCR 40 MG PO ×2 (08:00→19:58)
[2019-07-02] MEDS: Apixaban 2.5 MG TAB PO ×2 (08:00→19:58)
[2019-07-02] MEDS: Docusate Sodium 100 MG CAP PO ×2 (08:01→19:59)
[2019-07-02] MEDS: MAGNESIUM SULFATE 1 GM/100 ML BAG IVPB (10:03)
--- NOTE | 2019-07-02 10:30 | PT.INIE ---
Date of service: 07/02/19 Time of Service: 10:00 PT Notes Visit Reasons: HYPOGLYCEMIA WITH NIDDM,HYPOMAGNESEMIA,RECTAL CANC Inpatient Physical Therapy Evaluation Date: July 02, 2019 Referring Doctor: Juliann Caldera PT Orders: PT CONSULT: Limited ability Precautions: Standard, fall Patient Profile/Admitting Diagnosis: Silverio is an 83-year-old gentleman who has a history of colon cancer admitted with hypoglycemia and NIDDM, hypomagnesemia, sent to the ED via oncology prior to further chemotherapy treatments secondary to lab results on 06/30/19. PMHX: Recurrent metastatic colon cancer, chemotherapy, right knee pain, obesity, diabetes mellitus, hypertension, hyperlipidemia Social History/Home Situation: Lives in a house with his , 2 steps to enter with railing. Living space on one level with exception of 1 step to enter living room. Prior level of function independent with ADLs, independent gait with FWW Equipment owned/DME: FWW, cane, raised toilet seat with rails, suction grab bar in shower stall SUBJECTIVE: Patient is upright in chair with nursing in room placing IV. Alert and agreeable to PT consult. 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 Requiring extra time for turning and transitions. Patient left upright in chair with call button. BALANCE: Static sitting: Normal Dynamic Sitting: Normal Static Standing: Good Dynamic Standing: Poor SPECIAL TESTS: Mobility Limitations Standardized Measure [facility] AM -PAC ?6 clicks? Basic Mobility Inpatient Short Form: raw score: 19 standardized score: 45.44 CMS score: 41.77% CMS modifier: CK INFORMED CONSENT/EDUCATION: Pt instructed in purpose of PT Consult and plan of care ASSESSMENT: Patient is an 81 year old male admitted secondary to hypoglycemia in setting of recurrent metastatic colon cancer, chemotherapy, LE edema, diabetes mellitus. Patient presents with clinical signs and symptoms consistent with diagnosis presenting with impaired gait and balance with global weakness of bilateral UE/LE as demonstrated by the following impairment level findings: decreased B LE strength, decreased standing static and dynamic balance, decreased gait stability requiring FWW for safety. Impairments are contributing to the following functional limitations: [facility] CMS score: 41.77% Patient is assessed as a Moderate [id number] complexity based on the following: History: recurrent metastatic colon cancer, chemotherapy, right knee pain, obesity, diabetes mellitus Examination: decreased B LE strength, decreased standing static and dynamic balance, decreased gait stability requiring FWW for safety Presentation: evolving Decision Making: [facility] CMS score: 41.77% GOALS 1. Supine-sit: Supervision 2. Sit-Supine: Supervision 3. Sit-Stand: SBA FWW 4. Stand-sit: S FWW 5. Bed-chair: S FWW 6. Chair-bed: S FWW 7. Gait: SBA FWW 100ft x2 8. Stairs up and down 2 step with railing SBA 9. I with home exercise program PLAN OF CARE/TREATMENT PLAN: 1-2x/day, 7 days/ week x 1 week Plan of care has been reviewed with the HEARING AID ASSEMBLY SUPERVISOR providing the service under Physical therapy direction. Initiate physical therapy intervention for strengthening, bed mobility, transfers, gait, stairs, balance training, use of assistive device. DISCHARGE RECOMMENDATIONS Home with TREATMENT TIME/MINUTES/CODES 10:00 25 [place] [id number] Jo Bauman, AMANDA
--- NOTE | 2019-07-02 11:58 | W.PM.PROGNOT ---
Date of Service Date of service: 07/02/19 Time of Service: 11:58 Assessment and Plan Assessment and plan (1) Hypoglycemia: Status: Resolved Assessment and plan: Resolved. BG's now somewhat better - will start 5 units of levemir tonight. (2) Hypomagnesemia: Status: Acute Assessment and plan: improved. Repleted both orally and IV today. Recheck in am. No longer requiring potassium supplementation with improvement in magnesium - now d/c'ed. (3) Edema of both lower extremities: Status: Chronic Assessment and plan: Venous doppler ruled out DVT's. 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 Await echo. Written for lasix with holding parameters. Elevate extremities. Monitor strict I/O's and daily weights. (4) Edema of upper extremity: Status: Acute Assessment and plan: Recurrent - previously, the patient did have a DVT in that arm, and that is one of the reasons why he is on eliquis. Recheck venous doppler of RUE. Continue eliquis at current dose (2.5 mg PO BID). If doppler positive, switch to lovenox. (5) Atrial fibrillation: Status: Chronic Assessment and plan: d/c coreg - patient's heart rate is not tolerating it. Continue to monitor on tele. Continue eliquis. Qualifiers: Atrial fibrillation type: unspecified Qualified Code(s): I48.91 - Unspecified atrial fibrillation (6) Colon cancer: Status: Chronic Assessment and plan: Metastatic (Stage IV), on chemo. DNR/DNI. Patient declined a palliative care consult. Qualifiers: Colon location: unspecified part of colon Qualified Code(s): C18.9 - Malignant neoplasm of colon, unspecified (7) IDDM (insulin dependent diabetes mellitus): Status: Chronic Assessment and plan: See hypoglycemia (8) Mobitz type I Wenckebach atrioventricular block: Status: Acute Assessment and plan: D/c coreg. Monitor on tele. Correct lytes. (9) DVT prophylaxis: Status: Acute Assessment and plan: On therapeutic eliquis (10) Discharge planning issues: Status: Acute Assessment and plan: DNR/DNI On discharge, expected to go home. Subjective Subjective Interval history since last seen: Denies dizziness, chest pain, shortness of breath, nausea, vomiting. Feels weak. Worked with PT today - states had difficulty getting up from a chair. He politely declined an offer for a palliative care consult. On telemetry, he has been noted to be going into 2nd degree type 1 block, with heart rates in the 30's overnight (did get evening coreg despite holding parameters). This morning, even without the coreg, most heart rates are in the 40's, dipping down into 30's when asleep. Exam Narrative Exam Narrative: General: Very pleasant elderly male, A&OX3, sitting comfortably in a chair HEENT: EOMI, MMM Heart: RRR, + quiet CHARLIE Lungs: Crackles at L base Abdomen: soft, nontender Extremities: 3+ BLE pitting edema - symmetric; 2+ RUE edema. Looks about the same as yesterday. Objective Objective Clinical Data: Abnormal lab results 07/01/19 07/02/19 07/02/19 Range/Units 21:45 06:40 06:40 RBC 2.93 L (4.50-6.00) m/cumm Hgb 8.7 L (13.5-17.5) g/dL Hct 26.7 L (40.0-50.0) % RDW 14.4 H (11.8-14.1) % Absolute Neutrophils 7.11 H (1.2-6.7) k/cumm Absolute Lymphocytes 0.63 L (1.2-3.4) k/cumm Chloride 114 H (98-107) mmol/L BUN 28 H D (7-18) mg/dL Glucose 341 H D 161 H D (74-106) mg/dL Calcium 7.8 L (8.5-10.1) mg/dL Vital Signs Temperature 36.0 C L 07/02/19 07:17 Temperature Source Tympanic 07/02/19 07:17 Pulse 44 L 07/02/19 07:17 Pulse Rhythm Regular 07/02/19 08:30 Pulse 69 06/30/19 17:31 Respiratory Rate 19 07/02/19 07:17 Respiratory Effort Non-Labored 07/02/19 08:30 Respiratory Depth Normal 07/02/19 08:30 Respiratory Pattern Normal 07/02/19 08:30 Blood Pressure 92/54 L 07/02/19 07:17 Blood Pressure Mean 86 06/30/19 17:31 Blood Pressure Position Sitting 06/30/19 13:03 Pulse Oximetry 97 07/02/19 07:17 Oxygen Delivery Method Room Air 07/02/19 07:17 Oxygen Flow Rate 0 07/02/19 07:17 Pain Level 0 07/02/19 07:17 Intake & Output 07/01/19 07/01/19 07/02/19 11:59 23:59 11:59 Intake Total 400 / 1150 750 / 1150 Output Total 850 / 1750 900 / 1750 Balance -450 / -600 -150 / -600 Weight 97.9 kg 100.2 kg Intake: Oral 400 / 1150 750 / 1150 Output: Urine 850 / 1750 900 / 1750 Other: Urine Color Yellow Yellow Urine Appearance Clear Clear Clear Urine Odor Normal Normal Stool Size Moderate Moderate Stool Characteristics Man Soft Formed Brown Voiding Methods Toilet Toilet Toilet Laboratory Results WBC 8.43 k/cumm (4.4-10.8) D 07/02/19 06:40 RBC 2.93 m/cumm (4.50-6.00) L 07/02/19 06:40 Hgb 8.7 g/dL (13.5-17.5) L 07/02/19 06:40 Hct 26.7 % (40.0-50.0) L 07/02/19 06:40 MCV 91.1 fL (80-95) 07/02/19 06:40 MCH 29.7 pg (27.0-33.0) 07/02/19 06:40 MCHC 32.6 g/dL (32.0-36.0) 07/02/19 06:40 RDW 14.4 % (11.8-14.1) H 07/02/19 06:40 Plt Count 195 x1000/uL (130-400) 07/02/19 06:40 MPV 10.4 fL (8.0-11.0) 07/02/19 06:40 Immature Gran % 0.1 % 07/02/19 06:40 Neutrophils % 84.4 07/02/19 06:40 Lymphocytes % 7.5 07/02/19 06:40 Monocytes % 7.4 07/02/19 06:40 Eosinophils % 0.4 07/02/19 06:40 Basophils % 0.2 07/02/19 06:40 Absolute Neutrophils 7.11 k/cumm (1.2-6.7) H 07/02/19 06:40 Absolute Lymphocytes 0.63 k/cumm (1.2-3.4) L 07/02/19 06:40 Absolute Monocytes 0.62 k/cumm (0.11-0.7) 07/02/19 06:40 Absolute Eosinophils 0.03 k/cumm (0.0-0.7) 07/02/19 06:40 Absolute Basophils 0.02 k/cumm (0.0-0.2) 07/02/19 06:40 Sodium 144 mmol/L (136-145) 07/02/19 06:40 Potassium 4.9 mmol/L (3.5-5.1) 07/02/19 06:40 Chloride 114 mmol/L (98-107) H 07/02/19 06:40 Carbon Dioxide 21.3 mmol/L (21.0-32.0) 07/02/19 06:40 Anion Gap 8.7 mmol/L (3-11) 07/02/19 06:40 BUN 28 mg/dL (7-18) H D 07/02/19 06:40 Creatinine 1.30 mg/dL (0.70-1.30) 07/02/19 06:40 Estimated GFR/1.73 m2 52.85 (mL/min/1.73m2) 07/02/19 06:40 Glucose 161 mg/dL (74-106) H D 07/02/19 06:40 Calcium 7.8 mg/dL (8.5-10.1) L 07/02/19 06:40 Magnesium 1.9 mg/dL (1.8-2.4) 07/02/19 06:40 Total Bilirubin 0.3 mg/dL (0.2-1.0) 07/01/19 06:45 AST 16 U/L (15-37) 07/01/19 06:45 ALT 20 U/L (16-63) 07/01/19 06:45 Alkaline Phosphatase 132 U/L (46-116) H 07/01/19 06:45 Troponin I < 0.05 ng/Ml (<0.06) 06/30/19 13:40 NT-Pro-B Natriuret Pep 2943 pg/mL (<300) H 06/30/19 13:40 Total Protein 5.6 g/dL (6.4-8.2) L 07/01/19 06:45 Albumin 2.4 g/dL (3.4-5.0) L 07/01/19 06:45 Urine Color Yellow (Yellow) 06/30/19 16:10 Urine Clarity Clear (Clear) 06/30/19 16:10 Urine pH 5.5 (5-8) 06/30/19 16:10 Ur Specific [place] 1.020 (1.005-1.025) 06/30/19 16:10 Urine Protein Negative mg/dL (Negative) 06/30/19 16:10 Urine Ketones Negative mg/dL (Negative) 06/30/19 16:10 Urine Blood Small (Negative) H 06/30/19 16:10 Urine Nitrite Negative (Negative) 06/30/19 16:10 Urine Bilirubin Negative (Negative) 06/30/19 16:10 Urine Urobilinogen 0.2 EU/dL (Up TO 0.2) 06/30/19 16:10 Ur Leukocyte Esterase Negative (Negative) 06/30/19 16:10 Urine RBC 3-5 HPF (0-2) H 06/30/19 16:10 Urine WBC Negative HPF (0-5) 06/30/19 16:10 Ur Epithelial Cells Negative HPF (Negative) 06/30/19 16:10 Urine Crystals Mod calcium oxalate HPF (Negative) 06/30/19 16:10 Urine Bacteria Negative HPF (Negative) 06/30/19 16:10 Urine Mucus Negative (Negative) 06/30/19 16:10 Ur Culture Indicated? No 06/30/19 16:10 Urine Glucose Negative mg/dL (Negative) 06/30/19 16:10
--- NOTE | 2019-07-02 15:16 | CMPROGNOTE_ITS ---
- If Service Date Differs Date of service: 07/02/19 Time of Service: 15:16 Care Management Progress Note S/O: Silverio is sitting in a chair visiting with his , Ria, when CM meets with him today. He reports he is feeling better and is looking forward to returning home. His advises that she has ordered a lift chair recliner for the house as he has difficulty getting out of his chair at home. CM will continue to follow. A: Silverio is a 83 year old male admitted to [facility] on 07/01/2019 for hypoglycemia with NIDDM and hypomagnesemia. P: Anticipate Silverio will be discharged home when medically cleared by provider. Both he and his inquire about in-home PT services. CM will discuss the request with PT and provider. Silverio will follow-up with his primary care physician, his oncologist, and his discharge plan of care. His , Ria, will transport him home via private vehicle when ready. CM will continue to follow.
[2019-07-02] MEDS: LIDOCAINE Patch Removal 1 EACH TP (19:59)
[2019-07-02] MEDS: Simvastatin 40 MG TAB PO (21:44)
[2019-07-03] VITALS (8 sets, daily range): BP systolic 102–136; BP diastolic 52–83; PULSE 42–85; RESP 18–20; TEMP 35.8–37.1; O2SAT 96–100
[2019-07-03 06:27] LABS: Abs Immature Grans 0.02 k/cumm (0.0-0.09); Absolute Basophil Count 0.02 k/cumm (0.0-0.2); Absolute Eosinophil Count 0.09 k/cumm (0.0-0.7); Absolute Lymphocyte Count 0.81 k/cumm (1.2-3.4); Absolute Monocyte Count 0.52 k/cumm (0.11-0.7); Absolute Neutrophil Count 4.53 k/cumm (1.2-6.7); Basophils % 0.3; Eosinophils % 1.5; HCT 27.5 % (40.0-50.0); HGB 8.9 g/dL (13.5-17.5); Immature Grans % 0.3 %; Lymphocytes % 13.5; Mean Corp. HGB Concentration 32.4 g/dL (32.0-36.0); Mean Corpuscular Hemoglobin 29.7 pg (27.0-33.0); Mean Corpuscular Volume 91.7 fL (80-95); Mean Platelet Volume 9.6 fL (8.0-11.0); Monocytes % 8.7; Neutrophils % 75.7; Platelet Count 170 x1000/uL (130-400); RBC Distribution Width 14.7 % (11.8-14.1); White Blood Cell Count 5.99 k/cumm (4.4-10.8)
[2019-07-03 06:36] LABS: Anion Gap 10.3 mmol/L (3-11); BUN 33 mg/dL (7-18); CO2 21.7 mmol/L (21.0-32.0); CREATININE 1.58 mg/dL (0.70-1.30); Calcium 7.8 mg/dL (8.5-10.1); Chloride 112 mmol/L (98-107); Glucose 106 mg/dL (74-106); Potassium 5.2 mmol/L (3.5-5.1); Sodium 144 mmol/L (136-145)
--- NOTE | 2019-07-03 07:30 | DI.US_ITS ---
APPROVED REPORT EXAM: Comprehensive 2D, Doppler, and color-flow Echocardiogram Patient Location: In-Patient Ratoprinter: Holly Dash RDCS (AE) Rhythm: Bradycardia Indications: BLE edema Conclusion Left Ventricle : The left ventricle is normal size. The left ventricular systolic function is normal. The left ventricular ejection fraction is within the normal range. Mild left ventricular hypertrophy . There is normal LV segmental wall motion. There is grade 2 diastolic dysfunction. LVEF is estimated to be 55-60%. Atria : Left atrium is severely dilated. Right atrium is moderately dilated. Aortic Valve : Aortic valve is trileaflet. Aortic valve is thickened but has adequate excursion. Mild aortic regurgitation. There is no aortic valvular stenosis. Mitral Valve : Mild mitral annular calcification. The mitral valve is thickened but opens well. No ev idence of mitral valve stenosis. Moderate mitral regurgitation. Tricuspid Valve : The tricuspid valve leaflets are midly thickened, but open well. Moderate to severe tricuspid regurgitation. Great Vessels : The IVC is dilated, but collapses >50% with inspiration. Estimated RVSP is 50-58 mmH g. Compared to echocardiogram report from [facility] in March 2019, the patient's mitral v alve regurgitation has slightly worsened and pulmonary artery pressure has increased. Diastolic func tion was not commented on. Images from this study are not available for comparison. Wall motion Left Ventricle The left ventricle is normal size. The left ventricular systolic function is normal. The left ventric ular ejection fraction is within the normal range. Mild left ventricular hypertrophy. There is normal LV segmental wall motion. There is grade 2 diastolic dysfunction. LVEF is estimated to be 55-60%. Right Ventricle The right ventricle is normal size. The right ventricular systolic function appears normal. Atria Left atrium is severely dilated. Right atrium is moderately dilated. Aortic Valve Aortic valve is trileaflet. Aortic valve is thickened but has adequate excursion. There is no aortic valvular stenosis. Mild aortic regurgitation. Mitral Valve Mild mitral annular calcification. The mitral valve is thickened but opens well. No evidence of jon l valve stenosis. Moderate mitral regurgitation. Tricuspid Valve The tricuspid valve leaflets are midly thickened, but open well. Moderate to severe tricuspid regurgi tation. Pulmonic Valve Pulmonic valve is not well visualized. Mild pulmonic regurgitation. Great Vessels Aortic root is mildly dilated. The IVC is dilated, but collapses >50% with inspiration. Estimated RVS P is 50-58 mmHg. Pericardium trivial pericardial effusion was identified. 2D Dimensions IVSd 1.15 cm M: 0.6-1.2 LV EDV A2C 137.5 mL PWd 1.20 cm M: 0.6 - 1.2 LV EDV A4C 92.9 mL LVDd 5.30 cm M: 4.2 - 5.8 LA Volume Index Biplane 55.7 mL/m2 LVDs 3.85 cm M: 2.5 - 4.0 LA Area A4C 30.99 cm2 Aortic Root 3.65 cm M: 3.1 - 3.7 LA Area A2C 31.22 cm2 RA Area A4C 28.43 cm2 EF AP4 60.4 % LVOT 2.05 cm (M/F) 1.5-2.5 EF AP2 60.7 % Ascending Aorta 3.29 cm M: 2.6 - 3.4 EF BP 60.6 % LVEF (Teich) 53.1 % IVC 2.80 cm LVEF (Cowan's) 60.55 % M: 52 - 72 TAPSE 2.24 cm (M/F) <1.7 LV Volume 87.07 mL M: 62 - 150 LV Volume Index 39.22 mL/m2 M: 34 - 74 FS 27.55 % LV Diastology MV E' medial 0.061 (>0.07 m/s) E/A Ratio 1.5 LV E/e MED 16.85 (<14) PV S/D Ratio 0.56 MV E' lateral 0.066 (>0.1 m/s) TR Peak Velocity 3.52 m/s LV E/e LAT 15.70 (<14) Pulm Vein s 0.44 m/s Pulm Vein d 0.78 m/s LA vol/ BSA A2C s A-L 56.1 mL/m2 LA vol/ BSA A4C s A-L 49.5 mL/m2 Aortic Valve LVOT Area 3.36 cm2 AoV Area Vmax 2.27 cm2 LVOT Vmax 0.87 m/s AoV Area/ BSA (Vmax) 1.02 cm2/m2 LVOT Mean [place]. 0.65 m/s GILDARDO Mean [place]. 2.48 cm2 LVOT Peak Gr. 3.0 mmHg GILDARDO Mean [place]. Index 1.12 cm2/m2 LVOT Mean Gr. 1.8 mmHg LVOT VTI 0.303 m AoV Vmax 1.28 (0.5-1.3 m/s) AoV Mean [place]. 0.88 m/s AoV Peak Grad 6.6 mmHg LVOT SV 101.90 mL AoV Mean Grad 3.5 (<5 mmHg) AoV VTI 0.441 (0.18-0.25 m) AoV Area VTI 2.31 (2.5-4.5 cm2) AoV Area/ BSA (VTI) 1.04 cm/m2 Mitral Valve MV E Max [place]ago. 1.03 (0.4-1.3 m/s) Vena Contracta 0.32 (0-0.3 cm) MV A Velocity 0.70 (0.4-1.3 m/s) MV Regurg Volume 60.86 mL E/A Ratio 1.38 MV RF 37.39 % MV Decel. Time 235 (160-240 msec) RVOT Peak Gr. 1.02 mmHg MV PHT 68 msec RVOT Mean Gr. 0.65 mmHg MVA PHT 3.20 cm2 PV Peak Velocity 0.81 (0.5-1.5 m/s) RVOT Peak [place]ago. 0.51 m/s RVOT VTI 0.167 m Tricuspid Valve TR P. Gradient 49.5 mmHg TV Regurg Vmax 3.52 m/s RAP Estimate 8.00 mmHg RVSP 57.6 mmHg
--- NOTE | 2019-07-03 08:48 | DI.US_ITS ---
EXAM: US UPPER EXTREMITY VENOUS RT CLINICAL HISTORY: RUE swelling, concern for DVT. TECHNIQUE: Ultrasound examination of the right upper extremity venous system(s) is performed using g rayscale, color-flow, and spectral Doppler analysis. COMPARISON: US ECHOCARDIOGRAM from 07/03/2019 FINDINGS: The right internal jugular, axillary, subclavian, cephalic, basilic, and brachial veins are patent wi thout evidence of thrombosis. There is mild edema in the soft tissues of the right forearm. IMPRESSION: No DVT.
[2019-07-03 08:54] LABS: Creatine Kinase 49 U/L (39-308)
[2019-07-03] MEDS: Magnesium Chloride 64 MG TABCR PO (09:45)
[2019-07-03] MEDS: Docusate Sodium 100 MG CAP PO ×2 (09:45→20:46)
[2019-07-03] MEDS: Omeprazole 20 MG CAPCR 40 MG PO ×2 (09:45→20:46)
[2019-07-03] MEDS: Apixaban 2.5 MG TAB PO ×2 (09:45→20:46)
--- NOTE | 2019-07-03 12:41 | PT.INTREAT ---
Date of service: 07/03/19 Time of Service: 10:26 PT Notes Visit Reasons: HYPOGLYCEMIA WITH NIDDM,HYPOMAGNESEMIA,RECTAL CANC Inpatient Physical Therapy Treatment Note [facility] Date: 07/03/2019 PRECAUTIONS: Fall. Standard. On chemotherapy. SUBJECTIVE: Patient reports having rested a lot better last night. He reports that he feels that his leg edema is starting to resolve. He denies any headache, chest pain, and dizziness throughout PT session. OBJECTIVE: Telemetry monitoring in place. Edema to R UE and bilateral legs with R leg more affected than the L. Erythema to B legs. PAIN: 0/10 BED MOBILITY/TRANSFERS Sit-stand: minimal assist Stand-sit: minimal assist Bed-Chair: minimal assist Chair-bed: minimal assist GAIT Assistive Device: FWW Weight bearing: FWB Assist: CGA Distance: 50 feet x 3 Deviation: Step length and height decreased. Noted one near LOB toward the end of the last loop but was able to self correct without assistance. No report of fatigue throughout the walk. THEREX: Seated marches x 10. Leg raises x 10. Ankle PF/DF x 20 each. Verbal cues given for deep breathing exercises in between. ASSESSMENT: Patient demonstrates increasing activity tolerance to ambulation compared to yesterday with double the distance walked today without any difficulty. He tolerated exercises well. He will continue to benefit from skilled services to progress mobility level in anticipation of discharge to home. Walker readjusted today for better support and safety. PLAN: COntinue with PT POC BID to achieve set goals. TREATMENT CODE/TIME: 37312 x 13, 23897 x 10 minutes beginning at 10:26 AM.
--- NOTE | 2019-07-03 14:02 | W.NUTCONSULT ---
Date of service: 07/03/19 Time of Service: 14:02 Nutritional Consult ASSESSMENT: 83 year old male admitted with hypoglycemia, hypomagnesemia. Here for repletion. PMH: DM, stage 4 colon cancer with mets to liver, just started chemotherapy. Following diabetic diet with 100% completion in last 24 hours. Weight wnl for age. CM consult pending with CDE. Other than poor glycemic control, appears to be nutritionally stable. will follow prn. MONITORING AND EVALUATION: po intake, weight, labs Time Spent in Nutritional Counseling and Treatment: 0 time spent face to face
--- NOTE | 2019-07-03 14:08 | W.PM.PROGNOT ---
Date of Service Date of service: 07/03/19 Time of Service: 14:08 Assessment and Plan Assessment and plan (1) Hypoglycemia: Status: Resolved Assessment and plan: Resolved, but FBG was in the 90's this am after 5 units of levemir last night. At this point, I do not think the patient needs long acting insulin. Will d/c. (2) Hypomagnesemia: Status: Acute Assessment and plan: improved. Repleted both orally and IV today. Recheck in am. No longer requiring potassium supplementation with improvement in magnesium - now d/c'ed. (3) Edema of both lower extremities: Status: Chronic Assessment and plan: Venous doppler ruled out DVT's. Due to severe pulmonary hypertension + hypoalbuminemic state. Echo confirms moderate to severe pulmonary hypertension with RVSP of 50-58 mm Hg and tricuspid regurg. Initially, worsening kidney function made us stop lasix, but given the findings of echo, lasix gtt would likely improve Cr. Trial lasix gtt @ 2.5 mg/hr. (4) Edema of upper extremity: Status: Acute Assessment and plan: DVT ruled out. 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 No further workup. (5) Atrial fibrillation: Status: Chronic Assessment and plan: Remains bradycardic off coreg. ?Sick sinus syndrome vs residual effect of beta blockers - discussed with cardiology: patient is not a candidate for a pacer, even if it were a sick sinus syndrome. Continue to monitor on tele. Continue eliquis. DNR/DNI. Qualifiers: Atrial fibrillation type: unspecified Qualified Code(s): I48.91 - Unspecified atrial fibrillation (6) Colon cancer: Status: Chronic Assessment and plan: Metastatic (Stage IV), on chemo. DNR/DNI. Patient declined a palliative care consult. Qualifiers: Colon location: unspecified part of colon Qualified Code(s): C18.9 - Malignant neoplasm of colon, unspecified (7) IDDM (insulin dependent diabetes mellitus): Status: Chronic Assessment and plan: See hypoglycemia (8) Mobitz type I Wenckebach atrioventricular block: Status: Resolved Assessment and plan: In setting of excessive beta blockade. No recurrences overnight. No more beta stevne. Monitor on tele. (9) DVT prophylaxis: Status: Acute Assessment and plan: On therapeutic eliquis (10) Discharge planning issues: Status: Acute Assessment and plan: DNR/DNI On discharge, expected to go home with home health services. Subjective Subjective Interval history since last seen: Mr Sharpe denies dizziness, chest pain, shortness of breath, nausea, vomiting. His legs remain edematous. He states his RUE is less swollen today. His HR continues to dip in the 30's when he is asleep and remains in the 40's when he is awake. He remains in 1st degree AV block. I discussed the case with cardiology - the patient with diagnosis of stage IV cancer would not be considered a candidate for a pacer, even if his bradycardia was not caused by BB and was, rather, due to sick sinus syndrome. I also discussed findings of pulmonary hypertension with the patient. He is not interested in wearing CPAP/BiPAP device and, therefore, not interested in a sleep study. Exam Narrative Exam Narrative: General: Very pleasant elderly male, A&OX3, sitting comfortably in a chair HEENT: EOMI, MMM Heart: RRR, + CHARLIE Lungs: Crackles at L base Abdomen: soft, nontender Extremities: 3+ BLE pitting edema - symmetric - unchanged from yesterday; 1+ RUE edema - improved. Objective Objective Clinical Data: Abnormal lab results 07/03/19 07/03/19 Range/Units 06:12 06:12 RBC 3.00 L (4.50-6.00) m/cumm Hgb 8.9 L (13.5-17.5) g/dL Hct 27.5 L (40.0-50.0) % RDW 14.7 H (11.8-14.1) % Absolute Lymphocytes 0.81 L (1.2-3.4) k/cumm Potassium 5.2 H (3.5-5.1) mmol/L Chloride 112 H (98-107) mmol/L BUN 33 H (7-18) mg/dL Creatinine 1.58 H (0.70-1.30) mg/dL Calcium 7.8 L (8.5-10.1) mg/dL Vital Signs Temperature 37.1 C 07/03/19 07:15 Temperature Source Tympanic 07/03/19 07:15 Pulse 44 L 07/03/19 07:15 Pulse Rhythm Regular 07/03/19 09:58 Pulse 69 06/30/19 17:31 Respiratory Rate 18 07/03/19 07:15 Respiratory Effort Non-Labored 07/03/19 09:58 Respiratory Depth Normal 07/03/19 09:58 Respiratory Pattern Normal 07/03/19 09:58 Blood Pressure 107/61 07/03/19 07:15 Blood Pressure Mean 86 06/30/19 17:31 Blood Pressure Position Sitting 06/30/19 13:03 Pulse Oximetry 100 07/03/19 07:15 Oxygen Delivery Method Room Air 07/03/19 07:15 Oxygen Flow Rate 0 07/03/19 07:15 Pain Level 0 07/03/19 07:15 Intake & Output 07/02/19 07/03/19 07/03/19 23:59 11:59 23:59 Intake Total 250 / 250 250 / 490 240 / 490 Output Total 300 / 300 500 / 500 Balance -50 / -50 -250 / -10 240 / -10 Weight 99.5 kg Intake: Oral 250 / 250 250 / 490 240 / 490 Output: Urine 300 / 300 500 / 500 Other: Urine Color Straw Yellow Urine Appearance Clear Clear Urine Odor Normal Stool Size Moderate Stool Characteristics Soft Brown Voiding Methods Toilet Laboratory Results WBC 5.99 k/cumm (4.4-10.8) 07/03/19 06:12 RBC 3.00 m/cumm (4.50-6.00) L 07/03/19 06:12 Hgb 8.9 g/dL (13.5-17.5) L 07/03/19 06:12 Hct 27.5 % (40.0-50.0) L 07/03/19 06:12 MCV 91.7 fL (80-95) 07/03/19 06:12 MCH 29.7 pg (27.0-33.0) 07/03/19 06:12 MCHC 32.4 g/dL (32.0-36.0) 07/03/19 06:12 RDW 14.7 % (11.8-14.1) H 07/03/19 06:12 Plt Count 170 x1000/uL (130-400) 07/03/19 06:12 MPV 9.6 fL (8.0-11.0) 07/03/19 06:12 Immature Gran % 0.3 % 07/03/19 06:12 Neutrophils % 75.7 07/03/19 06:12 Lymphocytes % 13.5 07/03/19 06:12 Monocytes % 8.7 07/03/19 06:12 Eosinophils % 1.5 07/03/19 06:12 Basophils % 0.3 07/03/19 06:12 Absolute Neutrophils 4.53 k/cumm (1.2-6.7) 07/03/19 06:12 Absolute Lymphocytes 0.81 k/cumm (1.2-3.4) L 07/03/19 06:12 Absolute Monocytes 0.52 k/cumm (0.11-0.7) 07/03/19 06:12 Absolute Eosinophils 0.09 k/cumm (0.0-0.7) 07/03/19 06:12 Absolute Basophils 0.02 k/cumm (0.0-0.2) 07/03/19 06:12 Sodium 144 mmol/L (136-145) 07/03/19 06:12 Potassium 5.2 mmol/L (3.5-5.1) H 07/03/19 06:12 Chloride 112 mmol/L (98-107) H 07/03/19 06:12 Carbon Dioxide 21.7 mmol/L (21.0-32.0) 07/03/19 06:12 Anion Gap 10.3 mmol/L (3-11) 07/03/19 06:12 BUN 33 mg/dL (7-18) H 07/03/19 06:12 Creatinine 1.58 mg/dL (0.70-1.30) H 07/03/19 06:12 Estimated GFR/1.73 m2 42.20 (mL/min/1.73m2) 07/03/19 06:12 Glucose 106 mg/dL (74-106) D 07/03/19 06:12 Calcium 7.8 mg/dL (8.5-10.1) L 07/03/19 06:12 Magnesium 2.0 mg/dL (1.8-2.4) 07/03/19 06:12 Total Bilirubin 0.3 mg/dL (0.2-1.0) 07/01/19 06:45 AST 16 U/L (15-37) 07/01/19 06:45 ALT 20 U/L (16-63) 07/01/19 06:45 Alkaline Phosphatase 132 U/L (46-116) H 07/01/19 06:45 Creatine Kinase 49 U/L (39-308) 07/03/19 06:12 Troponin I < 0.05 ng/Ml (<0.06) 06/30/19 13:40 NT-Pro-B Natriuret Pep 2943 pg/mL (<300) H 06/30/19 13:40 Total Protein 5.6 g/dL (6.4-8.2) L 07/01/19 06:45 Albumin 2.4 g/dL (3.4-5.0) L 07/01/19 06:45 Urine Color Yellow (Yellow) 06/30/19 16:10 Urine Clarity Clear (Clear) 06/30/19 16:10 Urine pH 5.5 (5-8) 06/30/19 16:10 Ur Specific [place] 1.020 (1.005-1.025) 06/30/19 16:10 Urine Protein Negative mg/dL (Negative) 06/30/19 16:10 Urine Ketones Negative mg/dL (Negative) 06/30/19 16:10 Urine Blood Small (Negative) H 06/30/19 16:10 Urine Nitrite Negative (Negative) 06/30/19 16:10 Urine Bilirubin Negative (Negative) 06/30/19 16:10 Urine Urobilinogen 0.2 EU/dL (Up TO 0.2) 06/30/19 16:10 Ur Leukocyte Esterase Negative (Negative) 06/30/19 16:10 Urine RBC 3-5 HPF (0-2) H 06/30/19 16:10 Urine WBC Negative HPF (0-5) 06/30/19 16:10 Ur Epithelial Cells Negative HPF (Negative) 06/30/19 16:10 Urine Crystals Mod calcium oxalate HPF (Negative) 06/30/19 16:10 Urine Bacteria Negative HPF (Negative) 06/30/19 16:10 Urine Mucus Negative (Negative) 06/30/19 16:10 Ur Culture Indicated? No 06/30/19 16:10 Urine Glucose Negative mg/dL (Negative) 06/30/19 16:10 Echo; Left Ventricle : The left ventricle is normal size. The left ventricular systolic function is normal. The left ventricular ejection fraction is within the normal range. Mild left ventricular hypertrophy. There is normal LV segmental wall motion. There is grade 2 diastolic dysfunction. LVEF is estimated to be 55-60%. Atria : Left atrium is severely dilated. Right atrium is moderately dilated. Aortic Valve : Aortic valve is trileaflet. Aortic valve is thickened but has adequate excursion. Mild aortic regurgitation. There is no aortic valvular stenosis. Mitral Valve : Mild mitral annular calcification. The mitral valve is thickened but opens well. No evidence of mitral valve stenosis. Moderate mitral regurgitation. Tricuspid Valve : The tricuspid valve leaflets are midly thickened, but open well. Moderate to severe tricuspid regurgitation. Great Vessels : The IVC is dilated, but collapses >50% with inspiration. Estimated RVSP is 50-58 mmHg. Compared to echocardiogram report from [facility] in March 2019, the patient's mitral valve regurgitation has slightly worsened and pulmonary artery pressure has increased. Diastolic function was not commented on. Images from this study are not available for comparison.
--- NOTE | 2019-07-03 14:42 | PDOC.CMPRO ---
- If Service Date Differs Date of service: 07/03/19 Time of Service: 14:42 Care Management Progress Note S/O: Silverio was sitting in a chair when CM met with him. He stated that he is feeling better and that he is working with PT. Holger did state that he would like HH PT when he goes home. This is being addressed by CM with PT. Holger has also developed bradycardia and his beta blockers have been stopped. He is scheduled to have an Echocardiogram today. A: Silverio is a 83 year old male admitted to [facility] on 07/01/2019 for hypoglycemia with NIDDM and hypomagnesemia. P: Anticipate Silverio will be discharged home when medically cleared by provider. Both he and his have inquired about in-home PT services. CM will discuss the request with PT and provider. Silverio will follow-up with his primary care physician, his oncologist, and his discharge plan of care. His , Ria, will transport him home via private vehicle when ready. CM will continue to follow and provide support to patient, family and discharge planning needs.
--- NOTE | 2019-07-03 15:18 | PTTR_ITS ---
Date of service: 07/03/19 Time of Service: 15:18 PT Notes Visit Reasons: HYPOGLYCEMIA WITH NIDDM,HYPOMAGNESEMIA,RECTAL CANC 07/03/2019 SUBJECTIVE: Holger stating that he does need to start getting some more exercise. He has a loop in his house that he walks several times per day. No pain noted today. OBJECTIVE: Seated in his chair. Agreeable to PT treatment. TRANSFERS Sit to stand: Min A Stand to sit: CGA GAIT Device: FWW Weight bearing: Full Assist: CGA Distance: 70'x2 Deviation: Seated rest break THEREX: SEATED UE/LE strengthening exercises as noted on flow sheet. ASSESSMENT: Pt continues to demonstrate increased tolerance to activity. He was more fatigued this afternoon compared to the AM. No LOB or difficulty with walker management. PLAN: Continue to progress his activity as he can tolerate. Treatment time: 30 minutes [id number], [id number] Salena James, SETTER AUTOMATIC SPINNING LATHE
[2019-07-03] MEDS: Insulin Aspart 300 UNITS/3 ML PEN SC ×2 (16:54→21:06)
[2019-07-03] MEDS: Simvastatin 40 MG TAB PO (21:06)
--- NOTE | 2019-07-04 03:30 | NUR.NOTE ---
Pt state he does not want a flores to be inserted
[2019-07-04 04:21] VITALS: BP 127/69; PULSE 55; RESP 18; TEMP 36.1; O2SAT 99
[2019-07-04 06:44] LABS: Abs Immature Grans 0.01 k/cumm (0.0-0.09); Absolute Basophil Count 0.03 k/cumm (0.0-0.2); Absolute Eosinophil Count 0.08 k/cumm (0.0-0.7); Absolute Monocyte Count 0.47 k/cumm (0.11-0.7); Absolute Neutrophil Count 3.35 k/cumm (1.2-6.7); Anion Gap 7.7 mmol/L (3-11); BUN 37 mg/dL (7-18); Basophils % 0.6; CO2 22.3 mmol/L (21.0-32.0); CREATININE 1.46 mg/dL (0.70-1.30); Calcium 7.6 mg/dL (8.5-10.1); Chloride 113 mmol/L (98-107); Eosinophils % 1.7; Estimated GFR 46.23 (mL/min/1.73m2); Glucose 107 mg/dL (74-106); HCT 28.6 % (40.0-50.0); HGB 9.2 g/dL (13.5-17.5); Immature Grans % 0.2 %; Lymphocytes % 15.1; Magnesium 1.7 mg/dL (1.8-2.4); Mean Corp. HGB Concentration 32.2 g/dL (32.0-36.0); Mean Corpuscular Hemoglobin 29.4 pg (27.0-33.0); Mean Corpuscular Volume 91.4 fL (80-95); Mean Platelet Volume 10.3 fL (8.0-11.0); Monocytes % 10.1; Neutrophils % 72.3; Platelet Count 182 x1000/uL (130-400); RBC 3.13 m/cumm (4.50-6.00); RBC Distribution Width 14.7 % (11.8-14.1); Sodium 143 mmol/L (136-145); White Blood Cell Count 4.64 k/cumm (4.4-10.8)
[2019-07-04 07:43] VITALS: BP 121/70; PULSE 70; RESP 14; TEMP 35.9; O2SAT 99
[2019-07-04] MEDS: Omeprazole 20 MG CAPCR 40 MG PO ×2 (08:30→21:04)
[2019-07-04] MEDS: Apixaban 2.5 MG TAB PO ×2 (08:31→21:04)
[2019-07-04] MEDS: Magnesium Chloride 64 MG TABCR PO ×2 (08:31→21:04)
[2019-07-04] MEDS: Docusate Sodium 100 MG CAP PO ×2 (08:31→21:04)
[2019-07-04] MEDS: MAGNESIUM SULFATE 4 GM/100 ML BAG IVPB (11:04)
[2019-07-04] MEDS: Furosemide 40 MG TAB PO ×2 (11:05→16:30)
--- NOTE | 2019-07-04 11:07 | PT.INTREAT ---
Date of service: 07/04/19 Time of Service: 11:07 PT Notes Visit Reasons: HYPOGLYCEMIA WITH NIDDM,HYPOMAGNESEMIA,RECTAL CANC 07/04/2019 SUBJECTIVE: Holger stating he slept well last night. No new complaints. OBJECTIVE: Seated in his chair. Agreeable to PT treatment. TRANSFERS Sit to stand: Min A Stand to sit: CGA GAIT Device: FWW Weight bearing: Full Assist: CGA Distance: 70'x2 Deviation: Seated rest break between walking THEREX: UE/LE strengthening seated at edge of chair. See flow sheet for specifics. ASSESSMENT: Continues to work well with PT with good effort with his walking and exercises. Will continue to progress gait distance and strengthening as he is able to tolerate. Pt is in agreement that home health PT would be beneficial. PLAN: Continue current POC. Treatment time: 25' [id number], [id number] Salena James, BOTTOM POUNDER CEMENT SHOES
[2019-07-04 11:18] VITALS: BP 103/63; PULSE 49; RESP 18; TEMP 36.6; O2SAT 100
[2019-07-04] MEDS: Insulin Aspart 300 UNITS/3 ML PEN SC ×3 (12:04→21:05)
--- NOTE | 2019-07-04 12:10 | W.INDIABCONS ---
Date of service: 07/04/19 Time of Service: 12:10 Diabetes Inpatient Consult DESCRIPTION/ASSESSMENT: Appreciate diabetes consult for Mr. Sharpe who is 83 years here with afib and hypoglycemia. He also has stage 4 colon cancer. No A1c available. BMI 30 Hgb 9.2 GFR 42 During this hospitalization blood sugars since admission have been 93-239mg/dl on 5u Levemir and sensitive insulin correction eating 100% of recorded meals. Note d/c of basal insulin this AM. At home he received 10u Levemir and glyburide. INTERVENTION: No intervention warranted at this time for diabetes. Assume he will not go home on Glyburide upon discharge. PLAN: Will follow blood sugars in relation to basal discontinued. Time Spent in Nutritional Counseling and Treatment: 0 minutes face to face
--- NOTE | 2019-07-04 13:53 | DI.NM_ITS ---
EXAM: NM LUNG SCAN VENT PERF GRP CLINICAL HISTORY: new pulmonary hypertension, suspected PE. TECHNIQUE: Injected Dose: Ventilation: 29.6 mCi Tc-99m DTPA via inhalation Perfusion: 4.8 mCi Tc-99m MAA via IV COMPARISON: XR CHEST 2V PA LATERAL from 07/04/2019 FINDINGS: Chest X-Ray: Bilateral basilar infiltrates and small bilateral pleural effusions. Perfusion: No mismatched defects are identified. Ventilation:No mismatched defects are identified. IMPRESSION: 1. Low probability VQ examination. Modified PIOPED II criteria Probability Criteria High Two or more segments of V/Q mismatch Low Normal Perfusion, Non segmental perfusion abnormalitie s, pleural effusion in at least 1/3 of pleural cavity with no other defect Radiograph/perfusion matched defect in mid to upper lung confined to segment, one to three small segmental perfusion defects (<25% of segment) Perfusion defect smaller than corresponding radiogra phic lesion. Intermediate All other findings
--- NOTE | 2019-07-04 14:06 | CMPROGNOTE_ITS ---
- If Service Date Differs Date of service: 07/04/19 Time of Service: 14:06 Care Management Progress Note S/O: Silveiro was sitting in a chair when CM met with him. He stated that he is feeling better and that he is working with PT. Per provider, it is recommended that Holger return home with new PT and nursing. This was discussed with Holger and he is in agreement. A referral was sent to [place] [facility] by CM. Anticipate Holger will be ready for discharge in the next 24-48 hours. A: Silverio is a 83 year old male admitted to [facility] on 07/01/2019 for hypoglycemia with NIDDM and hypomagnesemia. P: Anticipate Holger will be discharged home with new home health services of nursing and PT. A referral has been sent to [place]. Holger will follow- up with his primary care physician, his oncologist, and his discharge plan of care. His , Ria, will transport him home via private vehicle when ready. CM will continue to follow and provide support to patient, family and discharge planning needs.
--- NOTE | 2019-07-04 14:12 | DI.RAD_ITS ---
EXAM: XR CHEST 2V PA AND LATERAL INDICATION: PRIOR TO V/Q SCAN. COMPARISON: XR CHEST 2V PA LATERAL from 06/30/2019 TECHNIQUE: 2D digital imaging was performed. FINDINGS: The heart size appears within normal limits. There is prominence of the pulmonary vasculature. The tip of the central venous catheter is in good position. There are bilateral pulmonary infiltrates. There are small bilateral pleural effusions. No pneumothorax is identified. No acute osseous abnorm ality is identified. IMPRESSION: Pulmonary findings concerning for pulmonary edema. Pneumonia cannot be excluded. Please correlate c linically.
--- NOTE | 2019-07-04 15:33 | PT.INNT ---
Date of service: 07/04/19 Time of Service: 15:33 PT Notes Visit Reasons: HYPOGLYCEMIA WITH NIDDM,HYPOMAGNESEMIA,RECTAL CANC 07/04/2019 Pt requested to hold on PT this afternoon as he has just returned from testing and he is quite fatigued. Salena James, ANTIQUE [employer]UM MAINTENANCE WORKER
--- NOTE | 2019-07-04 19:38 | NUR.NOTE ---
Nursing Note:Patient was ambulated to the sink after toileting, and he washed his hands with soap and water
[2019-07-04 20:15] VITALS: BP 149/67; PULSE 56; RESP 18; TEMP 36.1; O2SAT 100
[2019-07-04] MEDS: Simvastatin 40 MG TAB PO (21:04)
--- NOTE | 2019-07-04 21:09 | W.PM.PROGNOT ---
Date of Service Date of service: 07/04/19 Time of Service: 21:09 Assessment and Plan Assessment and plan (1) Edema of both lower extremities: Status: Chronic Assessment and plan: Venous doppler ruled out DVT's. Due to severe pulmonary hypertension + hypoalbuminemic state. Echo w/ moderate to severe pulmonary hypertension with RVSP of 50-58 mm Hg and tricuspid regurg. THese do not appear acute, but they are new since echo done at [facility] 2 months ago. VQ scan ruled out PE. It is possible that pulmonary hypertension was missed on prior echo. Otherwise, its acute onset is puzzling. Tolerating diuresis. Switched to PO lasix today. Can go home tomorrow. (2) Hypoglycemia: Status: Resolved Assessment and plan: Resolved. At this point, I do not think the patient needs long acting insulin. (3) Hypomagnesemia: Status: Acute Assessment and plan: improved. Repleted both orally and IV today. (4) Edema of upper extremity: Status: Acute Assessment and plan: DVT ruled out. 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 No further workup. (5) Atrial fibrillation: Status: Chronic Assessment and plan: Remains bradycardic off coreg, but heart rates are no longer dipping into 30's. ?Sick sinus syndrome vs residual effect of beta blockers - discussed with cardiology: patient is not a candidate for a pacer, even if it were a sick sinus syndrome. Continue to monitor on tele. Continue eliquis. DNR/DNI. Qualifiers: Atrial fibrillation type: unspecified Qualified Code(s): I48.91 - Unspecified atrial fibrillation (6) Colon cancer: Status: Chronic Assessment and plan: Metastatic (Stage IV), on chemo. DNR/DNI. Patient declined a palliative care consult. Qualifiers: Colon location: unspecified part of colon Qualified Code(s): C18.9 - Malignant neoplasm of colon, unspecified (7) IDDM (insulin dependent diabetes mellitus): Status: Chronic Assessment and plan: See hypoglycemia (8) Mobitz type I Wenckebach atrioventricular block: Status: Resolved Assessment and plan: In setting of excessive beta blockade. No recurrences overnight. No more beta steven. Monitor on tele. (9) DVT prophylaxis: Status: Acute Assessment and plan: On therapeutic eliquis (10) Discharge planning issues: Status: Acute Assessment and plan: DNR/DNI On discharge, expected to go home with home health services. Discharge home tomorrow. Subjective Subjective Interval history since last seen: Denies dizziness, chest pain, shortness of breath, nausea. States that his LLE edema is getting better. Exam Narrative Exam Narrative: General: Very pleasant elderly male, A&OX3, sitting comfortably in a chair HEENT: EOMI, MMM Heart: RRR, + CHARLIE Lungs: quiet crackles at B bases Abdomen: soft, nontender Extremities: 3+ BLE pitting edema - possibly slightly improved. RUE edema improved. Objective Objective Clinical Data: Abnormal lab results 07/04/19 07/04/19 Range/Units 06:24 06:24 RBC 3.13 L (4.50-6.00) m/cumm Hgb 9.2 L (13.5-17.5) g/dL Hct 28.6 L (40.0-50.0) % RDW 14.7 H (11.8-14.1) % Absolute Lymphocytes 0.70 L (1.2-3.4) k/cumm Chloride 113 H (98-107) mmol/L BUN 37 H (7-18) mg/dL Creatinine 1.46 H (0.70-1.30) mg/dL Glucose 107 H (74-106) mg/dL Calcium 7.6 L (8.5-10.1) mg/dL Magnesium 1.7 L (1.8-2.4) mg/dL Vital Signs Temperature 36.1 C L 07/04/19 20:15 Temperature Source Tympanic 07/04/19 20:15 Pulse 56 L 07/04/19 20:15 Pulse Rhythm Regular 07/04/19 18:39 Pulse 69 06/30/19 17:31 Respiratory Rate 18 07/04/19 20:15 Respiratory Effort Non-Labored 07/04/19 18:39 Respiratory Depth Normal 07/04/19 18:39 Respiratory Pattern Normal 07/04/19 18:39 Blood Pressure 149/67 H 07/04/19 20:15 Blood Pressure Mean 86 06/30/19 17:31 Blood Pressure Position Sitting 06/30/19 13:03 Pulse Oximetry 100 07/04/19 20:15 Oxygen Delivery Method Room Air 07/04/19 20:15 Oxygen Flow Rate 0 02/04/20 20:15 Pain Level 0 07/04/19 20:15 Intake & Output 07/03/19 07/04/19 07/04/19 23:59 11:59 23:59 Intake Total 480 / 730 290.5 / 290.5 Output Total 600 / 1100 3839 / 4339 500 / 4339 Balance -120 / -370 -3548.5 / -4048.5 -500 / -4048.5 Weight 100.7 kg Intake: IV 50.5 / 50.5 Oral 480 / 730 240 / 240 Output: Urine 600 / 1100 2950 / 3450 500 / 3450 Post Void Residual 889 / 889 Other: Urine Color Yellow Pale Dark Jenifer Yellow Urine Appearance Clear Clear Clear Urine Odor None Normal None Comment NOTIFIED RN pATIENT WAS WALKED TO THE SINK WHERE HE WASHED HIS HANDS. Stool Occult Blood Negative Stool Size Large Small Stool Characteristics Formed Soft Formed Voiding Methods Toilet Toilet Toilet Laboratory Results WBC 4.64 k/cumm (4.4-10.8) 07/04/19 06:24 RBC 3.13 m/cumm (4.50-6.00) L 07/04/19 06:24 Hgb 9.2 g/dL (13.5-17.5) L 07/04/19 06:24 Hct 28.6 % (40.0-50.0) L 07/04/19 06:24 MCV 91.4 fL (80-95) 07/04/19 06:24 MCH 29.4 pg (27.0-33.0) 07/04/19 06:24 MCHC 32.2 g/dL (32.0-36.0) 07/04/19 06:24 RDW 14.7 % (11.8-14.1) H 07/04/19 06:24 Plt Count 182 x1000/uL (130-400) 07/04/19 06:24 MPV 10.3 fL (8.0-11.0) 07/04/19 06:24 Immature Gran % 0.2 % 07/04/19 06:24 Neutrophils % 72.3 07/04/19 06:24 Lymphocytes % 15.1 07/04/19 06:24 Monocytes % 10.1 07/04/19 06:24 Eosinophils % 1.7 07/04/19 06:24 Basophils % 0.6 07/04/19 06:24 Absolute Neutrophils 3.35 k/cumm (1.2-6.7) 07/04/19 06:24 Absolute Lymphocytes 0.70 k/cumm (1.2-3.4) L 07/04/19 06:24 Absolute Monocytes 0.47 k/cumm (0.11-0.7) 07/04/19 06:24 Absolute Eosinophils 0.08 k/cumm (0.0-0.7) 07/04/19 06:24 Absolute Basophils 0.03 k/cumm (0.0-0.2) 07/04/19 06:24 Sodium 143 mmol/L (136-145) 07/04/19 06:24 Potassium 5.0 mmol/L (3.5-5.1) 07/04/19 06:24 Chloride 113 mmol/L (98-107) H 07/04/19 06:24 Carbon Dioxide 22.3 mmol/L (21.0-32.0) 07/04/19 06:24 Anion Gap 7.7 mmol/L (3-11) 07/04/19 06:24 BUN 37 mg/dL (7-18) H 07/04/19 06:24 Creatinine 1.46 mg/dL (0.70-1.30) H 07/04/19 06:24 Estimated GFR/1.73 m2 46.23 (mL/min/1.73m2) 07/04/19 06:24 Glucose 107 mg/dL (74-106) H 07/04/19 06:24 Calcium 7.6 mg/dL (8.5-10.1) L 07/04/19 06:24 Magnesium 1.7 mg/dL (1.8-2.4) L 07/04/19 06:24 Total Bilirubin 0.3 mg/dL (0.2-1.0) 07/01/19 06:45 AST 16 U/L (15-37) 07/01/19 06:45 ALT 20 U/L (16-63) 07/01/19 06:45 Alkaline Phosphatase 132 U/L (46-116) H 07/01/19 06:45 Creatine Kinase 49 U/L (39-308) 07/03/19 06:12 Troponin I < 0.05 ng/Ml (<0.06) 06/30/19 13:40 NT-Pro-B Natriuret Pep 2943 pg/mL (<300) H 06/30/19 13:40 Total Protein 5.6 g/dL (6.4-8.2) L 07/01/19 06:45 Albumin 2.4 g/dL (3.4-5.0) L 07/01/19 06:45 Urine Color Yellow (Yellow) 06/30/19 16:10 Urine Clarity Clear (Clear) 06/30/19 16:10 Urine pH 5.5 (5-8) 06/30/19 16:10 Ur Specific [place] 1.020 (1.005-1.025) 06/30/19 16:10 Urine Protein Negative mg/dL (Negative) 06/30/19 16:10 Urine Ketones Negative mg/dL (Negative) 06/30/19 16:10 Urine Blood Small (Negative) H 06/30/19 16:10 Urine Nitrite Negative (Negative) 06/30/19 16:10 Urine Bilirubin Negative (Negative) 06/30/19 16:10 Urine Urobilinogen 0.2 EU/dL (Up TO 0.2) 06/30/19 16:10 Ur Leukocyte Esterase Negative (Negative) 06/30/19 16:10 Urine RBC 3-5 HPF (0-2) H 06/30/19 16:10 Urine WBC Negative HPF (0-5) 06/30/19 16:10 Ur Epithelial Cells Negative HPF (Negative) 06/30/19 16:10 Urine Crystals Mod calcium oxalate HPF (Negative) 06/30/19 16:10 Urine Bacteria Negative HPF (Negative) 06/30/19 16:10 Urine Mucus Negative (Negative) 06/30/19 16:10 Ur Culture Indicated? No 06/30/19 16:10 Urine Glucose Negative mg/dL (Negative) 06/30/19 16:10 VQ scan: 1. Low probability VQ examination. CXR: Pulmonary findings concerning for pulmonary edema. Pneumonia cannot be excluded. Please correlate clinically.
[2019-07-05 00:10] VITALS: BP 146/76; PULSE 64; RESP 17; TEMP 36.1; O2SAT 100
[2019-07-05 04:55] VITALS: BP 131/67; PULSE 53; RESP 20; TEMP 35.9; O2SAT 100
[2019-07-05 07:18] VITALS: PULSE 56
[2019-07-05 07:30] VITALS: BP 127/67; PULSE 61; RESP 16; TEMP 35.9; O2SAT 98
[2019-07-05] MEDS: Apixaban 2.5 MG TAB PO (08:26)
[2019-07-05] MEDS: Furosemide 40 MG TAB PO (08:26)
[2019-07-05] MEDS: Insulin Aspart 300 UNITS/3 ML PEN SC (08:26)
[2019-07-05] MEDS: Docusate Sodium 100 MG CAP PO (08:26)
[2019-07-05] MEDS: Omeprazole 20 MG CAPCR 40 MG PO (08:26)
[2019-07-05] MEDS: Normal Saline Flush 10 ML SYR IVP ×2 (08:27→15:37)
[2019-07-05] MEDS: Magnesium Chloride 64 MG TABCR PO (08:27)
[2019-07-05 10:48] LABS: Abs Immature Grans 0.02 k/cumm (0.0-0.09); Absolute Basophil Count 0.02 k/cumm (0.0-0.2); Absolute Eosinophil Count 0.04 k/cumm (0.0-0.7); Absolute Lymphocyte Count 0.57 k/cumm (1.2-3.4); Absolute Monocyte Count 0.37 k/cumm (0.11-0.7); Absolute Neutrophil Count 2.85 k/cumm (1.2-6.7); Basophils % 0.5; HCT 28.4 % (40.0-50.0); HGB 9.2 g/dL (13.5-17.5); Immature Grans % 0.5 %; Lymphocytes % 14.7; Mean Corp. HGB Concentration 32.4 g/dL (32.0-36.0); Mean Corpuscular Hemoglobin 29.6 pg (27.0-33.0); Mean Corpuscular Volume 91.3 fL (80-95); Mean Platelet Volume 9.9 fL (8.0-11.0); Monocytes % 9.6; Neutrophils % 73.7; Platelet Count 156 x1000/uL (130-400); RBC 3.11 m/cumm (4.50-6.00); RBC Distribution Width 14.6 % (11.8-14.1); White Blood Cell Count 3.87 k/cumm (4.4-10.8)
[2019-07-05 11:45] VITALS: BP 131/61; PULSE 47; RESP 16; TEMP 36; O2SAT 100
[2019-07-05 12:18] LABS: Anion Gap 8.2 mmol/L (3-11); BUN 35 mg/dL (7-18); CO2 21.8 mmol/L (21.0-32.0); CREATININE 1.33 mg/dL (0.70-1.30); Calcium 7.9 mg/dL (8.5-10.1); Chloride 114 mmol/L (98-107); Estimated GFR 51.48 (mL/min/1.73m2); Glucose 149 mg/dL (74-106); Magnesium 2.1 mg/dL (1.8-2.4); Sodium 144 mmol/L (136-145)
--- NOTE | 2019-07-05 12:52 | PT.INTREAT ---
Date of service: 07/05/19 Time of Service: 12:52 PT Notes Visit Reasons: HYPOGLYCEMIA WITH NIDDM,HYPOMAGNESEMIA,RECTAL CANC 07/05/2019 SUBJECTIVE: Holger hoping to go home today. He is getting a lift chair for home to assist with sit to stand transfers. OBJECTIVE: Seated in his chair. Agreeable to PT treatment. TRANSFERS Sit to stand: Min A Stand to sit: CGA GAIT Device: FWW Weight bearing: Full Assist: CGA Distance: 120' Deviation: No sit rest break required today. ASSESSMENT: Pt able to increase his gait distance without need for sit rest break. Continues to require min A with sit to stand transfers and pt will benefit greatly from a lift chair. PLAN: Continue current POC. Treatment time: 15' [id number] [place], [place]
--- NOTE | 2019-07-05 13:35 | DSE_ITS ---
Date of service: 07/05/19 Time of Service: 13:35 DS: Diagnosis Discharge Diagnosis (1) Edema of both lower extremities: Status: Chronic (2) Pulmonary hypertension: Status: Acute (3) Hypoglycemia: Status: Resolved (4) Hypomagnesemia: Status: Acute (5) Edema of upper extremity: Status: Acute (6) Atrial fibrillation: Status: Chronic (7) Colon cancer: Status: Chronic (8) IDDM (insulin dependent diabetes mellitus): Status: Chronic (9) Mobitz type I Wenckebach atrioventricular block: Status: Resolved (10) Obstructive sleep apnea: Status: Suspected (11) Acute on chronic diastolic (congestive) heart failure: Status: Acute (12) Tricuspid regurgitation: Status: Acute Discharge Plan Disposition Patient Disposition: HOME W/HOME HEALTH SERVICE Condition: Stable Discharge Details Chief Complaint: GenMedical Clinical Impression: Edema of both lower extremities, Swelling of right upper extremity, Hypomagnesemia, Hypoglycemia Reason For Visit: HYPOGLYCEMIA WITH NIDDM,HYPOMAGNESEMIA,RECTAL CANC Admit Date/Time: 07/01/19 11:10 Admit Provider: Justin Sneed Attending Provider: Justin Sneed Primary Care Provider: Abdirashid Daley [facility] Hospital Course: Mr Sharpe is an 83 year old male with PMHx of Stage IV colon cancer on chemotherapy, as well as previously insulin dependent DM2, hypertension, atrial fibrillation on eliquis as well as h/o RUE DVT, which has resolved, who was sent to [facility] from his oncologist's office for weakness in setting of severe hypomagnesemia. He was also found to be hypoglycemic in his 30's and appeared to be very fluid overloaded with 4+ bilateral lower extremity edema. DVT of LE's was ruled out. His hypoglycemia resolved and had not recurred past his first night at the hospital. His magnesium was repleted both orally and intravenously. He was initiated on diuresis, but because his blood pressure was low, we had to hold it temporarily. The patient's heart rate was dipping down to the 30's while he was asleep and only went up as high as 40's when he was awake. He had evidence of 1st degree AV block with a very prolonged VT interval, Occasional 2nd degree type 1 block (only while asleep), with heart rates dipping into 30's, and pauses not lasting more than 2.6 seconds. The patient's coreg was initially decreased, but then d/c'ed entirely as it became evident that he cannot tolerate it. The patient's BP's then improved enough where we could re-initiate diuretics, but the heart rates truly have not budged. Per an informal conversation with cardiology, the patient would not be considered a candidate for a pacemaker based on his Stage IV colon cancer, in addition to which he is relatively asymptomatic. In workup of his LE edema, he did get an echo, which importantly revealed a preserved LVEF, grade 2 diastolic dysfunction, and moderate to severe pulmonary hypertension with RVSP of 50-58 mm Hg. The patient did not have these findings on the echo from 2 months ago at [facility], per Dr Curran, so we did rule out a PE with a VQ scan (kidney function would not permit a CTA). The most likely etiology for his pulmonary hypertension is likely obstructive sleep apnea, which the patient appears to have clinically, but is not interested in investigating - he would not wear CPAP/BiPAP, he stated. The patient's kidney function actually improved with diuresis, likely because of the underlying pulmonary hypertension. At this point, he is medically stable for discharge home with home health. He does not appear to require long acting insulin at all, and his glipizide is being substituted with januvia which should have less of a chance of hypoglycemia. He is referred to cardiology on discharge for follow up of his pulmonary hypertension and bradycardia/possible sick sinus syndrome. He will need repeat labs on 07/10/2019 - to be done by home health nursing. He would also benefit from home health PT. Care for patient as well as completion of his discharge summary on day of discharge took 1 hour. Home Meds and New Rx's Prescriptions: New furosemide 40 mg Tablet 40 mg PO BID@0830,1600 Qty: 20 RF: 0 docusate sodium [Colace] 100 mg Capsule 100 mg PO BID Qty: 0 RF: 0 magnesium chloride [Mag 64] 64 mg Tablet,Delayed Release (Dr/Ec) 64 mg PO BID Qty: 60 RF: 0 Januvia 50 mg tablet 50 mg PO DAILY Qty: 30 RF: 0 Continued simvastatin 40 MG tablet 40 mg PO HS RF: 0 lidocaine 5 % adhesive patch,medicated 1 patch TP DAILY Qty: 15 RF: 1 Prilosec OTC 20 mg Tablet,Delayed Release (Dr/Ec) 20 mg PO BID RF: 0 Eliquis 2.5 mg Tablet 2.5 mg PO BID RF: 0 Discontinued potassium chloride 10 MEQ capsule, extended release 20 meq PO DAILY RF: 0 carvedilol 12.5 MG tablet 12.5 mg PO BID RF: 0 glyburide 5 MG tablet 10 mg PO BID RF: 0 Levemir U-100 Insulin 100 UNIT/ML solution 10 unit SQ PRN PRN (Reason: if bs > 200) RF: 0 losartan 50 MG tablet 50 mg PO QAM RF: 0 furosemide [Lasix] 20 mg Tablet 20 mg PO DAILY RF: 0 Discharge Instructions Instructions: Sitagliptin (By mouth), Heart Failure (DC), Sleep Apnea (DC), Diabetic Hypoglycemia (DC), Pulmonary Arterial Hypertension (DC), Leg Edema (ED), Bradycardia (DC), Hypomagnesemia (ED) Additional Instructions: Return to the hospital with any fever, bleeding, chest pain, or shortness of breath. Wrap your legs in torrie wraps daily - ok to take off at night. Weigh yourself every day - call your MD if you are noticing your weight going up by 3-5 lbs in 5 days - it is likely extra fluid weight. Follow up with your PCP and with Dr Curran. Care Plan Goals: Home with home health PT/RN Stand Alone Forms: Nursing Discharge Form Referrals: Abdirashid Daley [Primary Care Provider] - 07/12/19 1:40 pm Justin Rocha MD [MD CONSULTING PHYSICIAN] - Activity:: Activity as Tolerated Equipment/Supplies:: No Equipment Needed Diet:: heart healthy diabetic Discharge Orders Discharge Orders: Discharge Order (Routine); Ordered 07/05/19 Ordered By: Juliann Caldera DS: Summary Status at Discharge Functional status at discharge: independent ambulation Overall status at discharge: patient is back to baseline Mental Status: mental status grossly normal Speech and Movement: speech and movement normal Mood: congruent mood Affect: normal affect Exam Narrative Exam Narrative: General: Very pleasant elderly male, initially sleeping nearly flat in bed, snoring/one apneic event seen, easily arousable, A&OX3 HEENT: EOMI, MMM Heart: RRR, + CHARLEI Lungs: improved aeration B Abdomen: soft, nontender Extremities: 3+ BLE pitting edema, now in torrie wraps Psych Mental Status: mental status grossly normal Speech and Movement: speech and movement normal Mood: congruent mood Affect: normal affect DS: Data Vitals/I&O Vitals and I&O: Vital Signs Temperature 36 C L 07/05/19 11:45 Temperature Source Tympanic 07/05/19 11:45 Pulse 47 L 07/05/19 11:45 Pulse Rhythm Regular 07/05/19 08:30 Pulse 69 06/30/19 17:31 Respiratory Rate 16 07/05/19 11:45 Respiratory Effort Non-Labored 07/05/19 08:30 Respiratory Depth Normal 07/05/19 08:30 Respiratory Pattern Normal 07/05/19 08:30 Blood Pressure 131/61 07/05/19 11:45 Blood Pressure Mean 86 06/30/19 17:31 Blood Pressure Position Sitting 06/30/19 13:03 Pulse Oximetry 100 07/05/19 11:45 Oxygen Delivery Method Room Air 07/05/19 11:45 Oxygen Flow Rate 0 07/05/19 11:45 Pain Level 0 07/05/19 11:45 Intake & Output 07/04/19 07/05/19 07/05/19 23:59 11:59 23:59 Intake Total 240 / 240 Output Total 1500 / 5339 1385 / 1385 Balance -1500 / -5048.5 -1145 / -1145 Weight 99.1 kg Intake: Oral 240 / 240 Output: Urine 1500 / 4450 1035 / 1035 Post Void Residual 350 / 350 Other: Urine Color Yellow Yellow Urine Appearance Cloudy Clear Urine Odor None Comment patient state he does not want to be straight cath at this time Stool Size Small Stool Characteristics Soft Formed Voiding Methods Toilet Toilet Data Completed and Pending Completed studies during hospitalization [Text1]: CXR 06/30/2019: No evidence of acute intrapulmonary process. Echo 07/03/2019: Left Ventricle : The left ventricle is normal size. The left ventricular systolic function is normal. The left ventricular ejection fraction is within the normal range. Mild left ventricular hypertrophy. There is normal LV segmental wall motion. There is grade 2 diastolic dysfunction. LVEF is estimated to be 55-60%. Atria : Left atrium is severely dilated. Right atrium is moderately dilated. Aortic Valve : Aortic valve is trileaflet. Aortic valve is thickened but has adequate excursion. Mild aortic regurgitation. There is no aortic valvular stenosis. Mitral Valve : Mild mitral annular calcification. The mitral valve is thickened but opens well. No evidence of mitral valve stenosis. Moderate mitral regurgitation. Tricuspid Valve : The tricuspid valve leaflets are midly thickened, but open well. Moderate to severe tricuspid regurgitation. Great Vessels : The IVC is dilated, but collapses >50% with inspiration. Estimated RVSP is 50-58 mmHg. Compared to echocardiogram report from [facility] in March 2019, the patient's mitral valve regurgitation has slightly worsened and pulmonary artery pressure has increased. Diastolic function was not commented on. Images from this study are not available for comparison. VEnous doppler BLE, RUE: No DVT. VQ scan 07/04/2019: 1. Low probability VQ examination. CXR: 07/04/2019: Pulmonary findings concerning for pulmonary edema. Pneumonia cannot be excluded. Please correlate clinically. Labs on day of discharge: Labs from last 24 hours 07/05/19 07/05/19 10:40 10:40 WBC 3.87 L RBC 3.11 L Hgb 9.2 L Hct 28.4 L MCV 91.3 MCH 29.6 MCHC 32.4 RDW 14.6 H Plt Count 156 MPV 9.9 Immature Gran % 0.5 Neutrophils % 73.7 Lymphocytes % 14.7 Monocytes % 9.6 Eosinophils % 1.0 Basophils % 0.5 Absolute Neutrophils 2.85 Absolute Lymphocytes 0.57 L Absolute Monocytes 0.37 Absolute Eosinophils 0.04 Absolute Basophils 0.02 Sodium 144 Potassium 5.0 Chloride 114 H Carbon Dioxide 21.8 Anion Gap 8.2 BUN 35 H Creatinine 1.33 H Estimated GFR/1.73 m2 51.48 Glucose 149 H Calcium 7.9 L Magnesium 2.1 PFSH Medical History Atrial fibrillation (Chronic) Colon cancer (Chronic) Diabetes (Chronic) HTN (hypertension) (Chronic) Renal insufficiency (Chronic) Surgical History History of tonsillectomy (Chronic) Social History Smoking/Tobacco Use Status: Former Tobacco Use Alcohol Intake: never Drug use: Never Substance use type: does not use Do you feel safe at home: Yes Do you feel safe in your relationship?: Yes
--- NOTE | 2019-07-05 14:03 | PDOC.HHF2F ---
Home Health Certification Home Health Certification: 1. Encounter Date and Reason I certify that VEE HOUSER was seen by Juliann Caldera on 07/05/19 and that I had a [id number] encounter with this patient that meets the physician face to face encounter requirements. 2. Clinical Findings Supporting Skilled Need and Homebound Status I certify that home health services are medically necessary, include either intermittent shelter and/or physical/speech therapy, and that this patient is homebound in that absences from the home require considerable and taxing effort and are infrequent or of short duration, or are attributable to the need to receive medical care. [X] (a) Attached documentation from encounter provides clinical findings supporting skilled need and homebound status (including what assistance patient requires to leave the home). The encounter with the patient was in whole, or in part, for the following medical condition, which is the primary reason for home health care: HYPOGLYCEMIA WITH NIDDM,HYPOMAGNESEMIA,RECTAL CANC [facility]:new diagnosis of CHF, pulmonary hypertension, hypomagnesemia, hypoglycemia while on insulin/glyburide, borderline hyperkalemia - will need CBC, BMP, magnesium on 07/10/2019 - results to Dr Daley Physical Therapy: eval and treat Homebound: unable to leave home without assistance 3. Certification and Authentication I certify that I composed the above information based on my clinical judgement relating to this patient's medical condition and, if applicable, clinical findings communicated to me by the NPP or inpatient physician who performed the Home Health Referral. All further orders will be obtained through Dr Daley (Community Based Physician - PCP)
--- NOTE | 2019-07-05 14:33 | CMDISCH_ITS ---
- If Service Date Differs Date of service: 07/05/19 Time of Service: 14:33 LACE Index Scoring Tool - Questions: Length of Stay (in days): 4 - 6 Acuity (Admit via E.D.?): Yes Comorbidities: Any Tumor E.D. Visits: 1 - Answers: Total Score: 10 Risk of Readmission: High Risk Care Management Discharge Reason for Hospitalization: Hypoglycemia,hypomagnesemia Discharge Plan: To be discharged home today with his spouse, CM faxed all reports to the [facility], and reviewed plan for discharge. CM contacted [facility] in [place] and requested that prescriptions be filled and ready for patients spouse when she arrives. CM provided contact information for questions after discharge. Patient/Family Education Needs: Discharge education, limitations, follow-up plan of care, asked me 3 and self-management. Services Needed at Discharge: Home Health Care Services, Physical Therapy
[2019-07-05 14:35] VITALS: PULSE 50
[2019-07-05] MEDS: Heparin 500 UNITS/5 ML SYRINGE IV (15:36)
--- NOTE | 2019-07-10 12:59 | INDS_ITS ---
Date of service: 07/10/19 PT Notes Visit Reasons: HYPOGLYCEMIA WITH NIDDM,HYPOMAGNESEMIA,RECTAL CANC Inpatient Physical Therapy Discharge Summary Dates: 07/10/2019 Dates of Service: 07/02/2019 through 07/05/2019 This is a clinical summary of care provided on the duration of dates listed above. No charge was made in the completion of this documentation. Referring Doctor: Juliann Caldera PT Orders: PT CONSULT: Limited ability Precautions: Standard, fall Patient Profile/Admitting Diagnosis: Silverio is an 83-year-old gentleman who has a history of colon cancer admitted with hypoglycemia and NIDDM, hypomagnesemia, sent to the ED via oncology prior to further chemotherapy treatments secondary to lab results on 06/30/19. PMHX: Recurrent metastatic colon cancer, chemotherapy, right knee pain, obesity, diabetes mellitus, hypertension, hyperlipidemia Social History/Home Situation: Lives in a house with his , 2 steps to enter with railing. Living space on one level with exception of 1 step to enter living room. Prior level of function independent with ADLs, independent gait with FWW Equipment owned/DME: FWW, cane, raised toilet seat with rails, suction grab bar in shower stall SUBJECTIVE: NT OBJECTIVE: General Observation: NT Mental Status: NT Pain: NT ROM: RUE AROM: shoulder flexion 140 degrees, elbow/ wrist WNL LUE AROM: shoulder flexion 100 degrees, elbow/ wrist WNL, significant compensatory movements due to probable OA, vs degenerative RTC tear RLE AROM: hip flexion 110 degrees, knee extension -20 degrees, PF/DF WNL LLE AROM: hip flexion 120 degrees, knee extension / PF/DF WNL STRENGTH: RUE: shoulder flexion 4/5, biceps 5/5, flotation tender helper 5/5 LUE: shoulder flexion 3/5, biceps 5/5, flotation tender helper 4+/5, 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 Requiring extra time for turning and transitions. BALANCE: Static sitting: Normal Dynamic Sitting: Normal Static Standing: Good Dynamic Standing: Poor ASSESSMENT: Patient is an 81 year old male admitted secondary to hypoglycemia in setting of recurrent metastatic colon cancer, chemotherapy, LE edema, diabetes mellitus. Patient presents with clinical signs and symptoms consistent with diagnosis presenting with impaired gait and balance with global weakness of bilateral UE/LE as demonstrated by the following impairment level findings: decreased B LE strength, decreased standing static and dynamic balance, decreased gait stability requiring FWW for safety. GOALS 1. Supine-sit: Supervision NOT MET 2. Sit-Supine: Supervision NOT MET 3. Sit-Stand: SBA FWW NOT MET 4. Stand-sit: S FWW NOT MET 5. Bed-chair: S FWW NOT MET 6. Chair-bed: S FWW NOT MET 7. Gait: SBA FWW 100ft x2 NOT MET 8. Stairs up and down 2 step with railing SBA NOT MET 9. I with home exercise program NOT MET DISCHARGE RECOMMENDATIONS Patient will benefit from home health PT services in order to progress mobility level using least restrictive assistive ambulatory device, assess home safety, identify additional equipment needs, and establish a functional maintenance p rogram that will increase ability of patient to remain at home. TREATMENT TIME/MINUTES/CODES NC Thank you very much for this referral. Ginette Valdez PT, DPT, CLT [facility] Inpatient PT at [facility]
== END 2019-07-05 15:39 | disposition home health service (06) | DRG 637 ==
LOC: ER 17:52 → MS 18:22
PROVIDERS: Internal Medicine; Physician Assistant; Admitting Provider Family Medicine; Emergency Provider Physician Assistant; PCP Neuromusculoskeletal Medicine & OMM; Visit Provider Internal Medicine
DX: I50.33 Acute on chronic diastolic (congestive) heart failure (principal); C78.7 Secondary malignant neoplasm of liver and intrahepatic bile duct; E11.649 Type 2 diabetes mellitus with hypoglycemia without coma; I13.0 Hypertensive heart and chronic kidney disease with heart failure and stage 1 through stage 4 chronic kidney disease, or unspecified chronic kidney disease; C18.9 Malignant neoplasm of colon, unspecified; R53.1 Weakness; E83.42 Hypomagnesemia; I27.23 Pulmonary hypertension due to lung diseases and hypoxia; G47.33 Obstructive sleep apnea (adult) (pediatric); I48.91 Unspecified atrial fibrillation; Z79.01 Long term (current) use of anticoagulants; E11.22 Type 2 diabetes mellitus with diabetic chronic kidney disease; E88.09 Other disorders of plasma-protein metabolism, not elsewhere classified; M54.2 Cervicalgia; R60.0 Localized edema; N18.9 Chronic kidney disease, unspecified; Z79.4 Long term (current) use of insulin; Z86.718 Personal history of other venous thrombosis and embolism; I44.0 Atrioventricular block, first degree; I44.1 Atrioventricular block, second degree; R94.31 Abnormal electrocardiogram [ECG] [EKG]; R00.1 Bradycardia, unspecified; I07.1 Rheumatic tricuspid insufficiency; Z71.3 Dietary counseling and surveillance; Z95.828 Presence of other vascular implants and grafts
CPT/HCPCS: 36415; 36416; 36591; 78582; 80048; 80053; 82550; 82947; 82962; 85027; 93306; 96365; 96366; 97110; 97162; 97530; 99220; 99232; 99239; 99285; 71046; 81003; 81015; 83735; 83880; 84484; 85025; 93005; 93010; 93970; 93971; G0378; J1940; J1941; J3475; J3490